=== PATIENT | female | born 1945 | race Caucasian/White ===

== ENCOUNTER → 2022-01-05 | Outpatient (CLI) | payer BC, SELFPAY ==
[2022-01-05 11:44] LABS: Erythrocyte Sedimentation Rate 6 mm/hr (0-30)
[2022-01-05 11:50] LABS: Absolute Lymphocyte Count 1.17 X10^3/uL (0.83-4.51); Absolute Neutrophil Count 4.3 X10^3/uL (2.0-7.7); Basophil# 0.02 X10^3/uL; Basophil% 0.3 % (0-1); Eosinophil# 0.11 X10^3/uL; Eosinophils% 1.8 % (0-5); Hematocrit 38.3 % (37-47); Lymphocyte # 1.17 X10^3/ul (0.83-4.51); Lymphocyte % 19.3 % (19-41); Mean Corp Hgb Conc 33.9 g/dL (32-36); Mean Corpuscular Hgb 33.2 pg (27.0-32.0); Mean Corpuscular Volume 97.7 fL (81-99); Mean Platelet Vol. 8.1 fl (6.2-12.0); Monocyte# 0.41 X10^3/uL; Monocyte% 6.8 % (0-10); NRBC Flagged by Analyzer 0 % (0-5); Neutrophil # 4.25 X10^3/uL (2.7-7.7); Neutrophil % 70.3 % (47-70); Platelet Count 161 K/mm3 (150-450); RBC Distribution Width CV 12.6 % (11.6-14.6); RBC Distribution Width SD 45.1 fl (35.1-43.9); Red Blood Count 3.92 M/mm3 (4.2-5.4); White Blood Count 6.1 K/mm3 (4.4-11.0)
[2022-01-05 12:15] LABS: CRP < 2.90 mg/L (0.0-3.0); Ferritin 44 ng/mL (8-252); LDH 169 U/L (84-246)
[2022-01-06 12:08] LABS: Anti-Centromere B Ab <0.2 AI (0.0-0.9); Anti-Chromatin <0.2 AI (0.0-0.9); Anti-Jo <0.2 AI (0.0-0.9); Anti-Scleroderma-70 AB <0.2 AI (0.0-0.9); RNP Ab <0.2 AI (0.0-0.9); SJOGREN'S Anti-SS-A test < 0.2 AI (0.0-0.9); SJOGREN'S Anti-SS-B test < 0.2 AI (0.0-0.9); Smith Ab <0.2 AI (0.0-0.9)
[2022-01-06 15:50] LABS: Anti-dsDNA Ab <1 IU/mL (0-9)
[2022-01-06 16:08] LABS: Endomysial Antibody IgA Negative (Negative); Immunoglobulin A 56 mg/dL (64-422)
[2022-01-06 18:39] LABS: t-Transglutaminase IgA <2 U/mL (0-3)
[2022-01-09 16:08] LABS: Albumin 3.9 g/dL (2.9-4.4); Alpha-1-Globulins 0.3 g/dL (0.0-0.4); Cytoplasmic Ab (C-ANCA) <1:20 titer (Neg:<1:20); Gamma Globulin 0.7 g/dL (0.4-1.8); Immunoglobulin A 59 mg/dL (64-422); Immunoglobulin G 625 mg/dL (586-1602); Immunoglobulin M 45 mg/dL (26-217); PROEL- TOTAL PROTEIN 6.9 g/dL (6.0-8.5)
[2022-01-09 21:43] LABS: IMMUNOFIXATION RESULT,S Comment: (.); Immunoglobulin E 15 IU/mL (6-495); Perinuclear Ab (P-ANCA) <1:20 titer (Neg:<1:20)
== END | disposition home or self-care (01) ==
LOC: LAB 10:51
PROVIDERS: PCP Family Medicine; Visit Provider Internal Medicine Gastroenterology
DX: K21.9 Gastro-esophageal reflux disease without esophagitis (principal)
CPT/HCPCS: 36415; 82728; 82784; 82785; 83516; 83615; 84165; 85025; 85652; 86140; 86225; 86235; 86255; 86256; 86334

== ENCOUNTER → 2022-01-12 | Outpatient (CLI) | payer MEDICARE, SELFPAY ==
--- NOTE | 2022-01-12 14:55 | CT_ITS ---
STUDY: CT ABDOMEN AND PELVIS WITH CONTRAST REASON FOR EXAM: Female, 76 years old. Abdominal pain/weight loss RADIATION DOSAGE (If Supplied By Facility): CTDIvol = ( 13.26 ) mGy, DLP = ( 307.51 ) mGycm TECHNIQUE: Transaxial images were obtained from the dome of the diaphragm to the symphysis pubis with oral contrast. Oral and amp; IV Readi-CAT and amp; 100mL Isovue-370 was administered. Sagittal and coronal images were reconstructed. Individualized dose optimization techniques were used for this CT. COMPARISON: None. FINDINGS: The visualized lung bases are unremarkable. The visualized portions of the heart are within normal limits. Normal liver. There are surgical clips in the gallbladder fossa consistent with a prior cholecystectomy. Normal spleen. Normal pancreas. Normal bilateral adrenal glands. There is a 1.4 cm cyst in the lower pole of the right kidney. Normal left kidney. There is a small hiatal hernia. Normal small intestine. There are multiple colonic diverticula consistent with diverticulosis. There is non-visualization of the appendix. There is scattered atherosclerotic calcification of the abdominal aorta, without a demonstrated aneurysm. Normal inferior vena cava. Normal retroperitoneum. Normal urinary bladder. There is absence of the uterus consistent with a prior hysterectomy. There is a left-sided inguinal hernia containing adipose tissue. There are diffuse degenerative changes of the visualized lumbar spine. Levoscoliosis. CT/Abdomen/Pelvis WITH Contrast IMPRESSION: Sigmoid diverticulosis. Right renal cyst. Status post cholecystectomy and hysterectomy. Electronically Signed: Todd Keith MD at 15:33 EDT ,
[2022-01-12 15:26] LABS: CREATININE FINGERSTICK 1.1 mg/dL (0.55-1.02)
== END | disposition home or self-care (01) ==
PROVIDERS: PCP Family Medicine; Referring Provider Internal Medicine Gastroenterology; Visit Provider Internal Medicine Gastroenterology
DX: K63.5 Polyp of colon (principal); K21.9 Gastro-esophageal reflux disease without esophagitis
CPT/HCPCS: 74177; Q9967

== ENCOUNTER → 2022-03-14 | Outpatient (CLI) | payer MEDICARE, SELFPAY ==
[2022-03-18 20:25] LABS: Calprotectin, Stool 215 ug/g (0-120)
== END | disposition home or self-care (01) ==
LOC: LABSPEC 11:21
PROVIDERS: PCP Family Medicine; Referring Provider Internal Medicine Gastroenterology; Visit Provider Internal Medicine Gastroenterology
DX: K58.9 Irritable bowel syndrome, unspecified (principal); K21.9 Gastro-esophageal reflux disease without esophagitis
CPT/HCPCS: 83630; 83993

== ENCOUNTER 2022-08-10 10:54 | Day surgery (SDC) | payer MEDICARE, SELFPAY ==
[2022-08-10] VITALS (7 sets, daily range): BP systolic 96–159; BP diastolic 49–102; PULSE 66–94; RESP 16; TEMP 36.4–37.1; O2SAT 97–100; BMI 17.2
--- NOTE | 2022-08-10 | IMM_PTH ---
PATIENT: KAITLYNN TONEY LOC: EN U#:[id number] AGE/SX: 76/F ROOM: RE08/10/[address]: Dr. Kanu Maya DO : 1945 BED: DIS: 08/10/2022 SPEC #: [id number] RECD: 08/12/22 13:17 STATUS: SREE RERach #: [id number] CARMINA: 08/10/22 00:[address]: Kanu Maya DEPT: IMMUNOHISTOCHEMISTRY RECD BY: Tiana Zhong ENTERED: 08/12/22 13:18 SP TYPE: IMMUNO OTHR DR: Dr. Dejuan Selby MD Tissues: A - Esophagus, NOS Procedures: P53 (initial) KI-67 (add) PHYSICIAN & INSTITUTION [place] [id number] SPECIMEN INFORMATION: Tissue Source: A ? Distal esophagus biopsy Clinical Info: GERD, constipation Specimen Number: [id number] CPT code: 98348, 13433 METHODOLOGY: Deparaffinized sections of prefer/formalin-fixed tissue or PAP/DQ stained slides are incubated with monoclonal/polyclonal antibodies/oligonucleotide probes. Localization is made via biotin free immunoperoxidase method. Appropriate controls are performed and reacted as expected. Results on target cell population are indicated in the following table: RESULTS: ANTIBODY / CLONE RESULT Block A P53 (DO-7) negative Ki-67 (30-9) positive, very low These tests were developed and their performance characteristics determined by [facility]. They may not have been cleared or approved by the U.S. Food and Drug Administration. The FDA has determined that such clearance or approval is not necessary. The above immunohistochemical/dualISH markers are ordered and reviewed by the Pathologist. INTERPRETATION: A. Distal esophagus, biopsy: Negative for dysplasia. HÉCTOR:leland 08/15/2022
[2022-08-10] MEDS: Lactated Ringers 1,000 ML 15 ML IV (11:20)
--- NOTE | 2022-08-10 11:58 | HP.PCM_ITS ---
History and Physical Date of Admission: 08/10/22 76 F who presents to the office today accompanied by daughter in law for acid reflux, constipation, hx colon polyps. A few yrs ago she had lost 40 lbs unintentionally because she couldn't eat; was getting vomiting and sometimes diarrhea. Had esophageal ulcer, had diverticulitis. Recalls being told there were ulcers in the colon too. Treated with sucralfate successfully then. Also hx colon polyps so she had frequent colonoscopies. Mother of colon cancer age 80. Takes omeprazole 40 mg daily. Sometimes wakes in night with heartburn--about 2x per wk, then relieved with TUMS. 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 and underwent surgical correction. ?She has a small hiatal hernia on CT done in 12/2021. Tends to be constipated. Tries to get good fiber intake. Typically has a daily BM, may have to strain. Takes a daily docusate. Takes prn natural laxative, l ess often than weekly. 12/2021 shows diverticula in sigmoid colon. 12/2021 labs: Elevated stool calprotectin, normal stool lactoferrin. Slightly low IgA. Normal JF. Normal MAGNUS-comprehensive. Normal ferritin, LDH, crp, esr. CBC unremarkable.? EGD performed at [facility] 12.30.20 finding esophagitis; 3mm sessile esophageal polyp; esophageal ulcer at GE junction with adherent fibrinous exudate; hiatal h ernia with erythema; gastritis. Biopsies without pathologic diagnosis. She recalls having colonoscopy then too--we will get op report and path report. 01/12/22 CT/Abdomen/Pelvis WITH Contrast IMPRESSION: Sigmoid diverticulosis. Right renal cyst. Status post cholecystectomy and hysterectomy. Small hiatal hernia ROS Const Constitutional: Positive for fatigue and weight change ENT ENT: No difficulty swallowing Gastro GI: Positive for bloating, constipation, heartburn, excessive flatus and nausea/dyspepsia; No abdominal pain, belching, change in bowel habits, change in stool character, coffee ground emesis, cramping, diarrhea, difficulty swallowing, feeling full early, incontinent of stools, Vomiting blood/hematemesis, Blood in stool, loose stools, Black,tarry stools, pain with swallowing, vomiting or other Musc Musculoskeletal: Positive for abnormal gait, joint pain, back pain, muscle cramps, muscle weakness, stiffness and sciatica Skin Skin: No yellowing of the eye or itchy eyes Neuro Neurology: Positive for abnormal gait Psych Psychiatric: Positive for anxiety and Positive for depression Endo Endocrine: Positive for fatigue and weight change Aller/Imm Allergy/Immunologic: No itchy eyes Sotero/Lymp Hematologic/Lymphatic: Positive for easy bruising; No easy bleeding Exam Const General: cooperative, healthy appearing and comfortable Nutritional Appearance: thin Orientation: alert, awake and oriented x3 HENMT Head: normal to inspection Eyes Sclera: sclerae normal Resp Effort & Inspection: normal respiratory effort GI Inspection: normal to inspection Palpation: soft, no hepatosplenomegaly, no masses and nontender Quality Reporting Tobacco Screening ([facility]) Smoking Status: Never smoker Assessment and Plan Assessment and Plan (1) GERD (gastroesophageal reflux disease): ?Status:?Chronic ?Plan: 76 yr old female with heartburn intermittently while taking omeprazole 40 mg daily, small hiatal hernia per CT w/ hx of surgery for entire stomach in chest, hx esophageal ulcer, gastric polyp. Also has chronic constipation, hx colon polyps, FH colon cancer. We will schedule her for EGD and colonoscopy w/ office f/u 2 wks later to review biopsy results. We discussed her labs and CT results today. Try Fiber Choice tablets for constipation; she or her DIL will let me know if not effective so we can try something else. We will get last colonoscopy op report and path report.? (2) Constipation: ?Status:?Acute ?Plan: as above I have examined the patient and the H&P has been reviewed. There are no clinical changes since date of exam.
--- NOTE | 2022-08-10 12:00 | EGD_PTH ---
PATIENT: KAITLYNN TONEY LOC: EN U#:[id number] AGE/SX: 76/F ROOM: RE08/10/[address]: Dr. Kanu Maya DO : 1945 BED: DIS: 08/10/2022 SPEC #: [id number] RECD: 08/10/22 15:27 STATUS: SREE SAIRA #: [id number] CARMINA: 08/10/22 12:[address]: Kanu Maya DEPT: SURGICAL PATHOLOGY RECD BY: Courtney Fraire ENTERED: 08/11/22 08:40 SP TYPE: EGD BIOPSY OT DR: Dr. Dejuan Selby MD Tissues: A - Esophagus, NOS B - Cecum, NOS Procedures: Special Stain Group II Surgery Specimen Level IV Alcian Blue/PAS (control) HEADER OPERATION: Colonoscopy, EGD (MAC), biopsy, polypectomy PRE-OP DIAGNOSIS: GERD, constipation TISSUE SUBMITTED: A ? Distal esophagus biopsy, B ? Cecum polyp MICROSCOPIC DIAGNOSIS A. Distal esophagus, biopsy: Fragments of gastroesophageal mucosa with extensive intestinal metaplasia (goblet cell metaplasia), consistent with Lechuga's esophagus. Moderate chronic inflammation. Negative for dysplasia. See comment. B. Cecum polyp, polypectomy: Fragments of hyperplastic polyp. Fragments of fecal material. SJ:rg 08/12/2022 COMMENT A. Immunohistochemistry ([id number]) for P53 and Ki-67 will be performed and results will be reported separately. Alcian blue/PAS stain with matched control is used in the evaluation of the specimen. MICROSCOPIC DESCRIPTION Slides are reviewed. GROSS DESCRIPTION A - Received in fixative is one container labeled with the patient's name and designated distal esophagus biopsy. The specimen consists of multiple irregular fragments of light barnhart soft tissue that in aggregate measure 0.6 x 0.6 x 0.1 cm. The specimen is totally submitted in one cassette. B - Received in fixative is one container labeled with the patient's name and designated cecum polyp. The specimen consists of a pink polyp measuring 0.7 x 0.5 x 0.3 cm. Multiple irregular fragments of barnhart soft tissue mixed with fecal material are also present measuring 2.5 x 1.0 x 0.1 cm. The entire specimen is submitted in one cassette. / HÉCTOR:leland 08/11/2022 TC:5 CPT: 69451 x2, 99611
--- NOTE | 2022-08-10 12:37 | OP.EGD_ITS ---
Patient Name: Merline Diaz Procedure Date: 08/10/2022 11:50 AM Date of : 1945 Age: 76 Procedure: Upper GI endoscopy Indications: Heartburn Providers: Kanu Maya DO Medicines: Monitored Anesthesia Care Patient Profile: This is a 76 year old female. Refer to note in patient chart for documentation of history and physical. Patient has symptoms of chronic heartburn. Patient has symptoms of chronic heartburn. Complications: No immediate complications. Procedure: Pre-Anesthesia Assessment: - Prior to the procedure, a History and Physical was performed, and patient medications and allergies were reviewed. The risks and benefits of the procedure and the sedation options and risks were discussed with the patient. All questions were answered and informed consent was obtained. Patient identification and proposed procedure were verified by the physician in the pre-procedure area. Mental Status Examination: alert and oriented. Airway Examination: normal oropharyngeal airway and neck mobility. Respiratory Examination: clear to auscultation. CV Examination: normal. Prophylactic Antibiotics: The patient does not require prophylactic antibiotics. Prior Anticoagulants: The patient has taken no previous anticoagulant or antiplatelet agents. ASA Grade Assessment: II - A patient with mild systemic disease. After reviewing the risks and benefits, the patient was deemed in satisfactory condition to undergo the procedure. The anesthesia plan was to use monitored anesthesia care (MAC). Immediately prior to administration of medications, the patient was re-assessed for adequacy to receive sedatives. The heart rate, respiratory rate, oxygen saturations, blood pressure, adequacy of pulmonary ventilation, and response to care were monitored throughout the procedure. The physical status of the patient was re-assessed after the procedure. After obtaining informed consent, the endoscope was passed under direct vision. Throughout the procedure, the patient's blood pressure, pulse, and oxygen saturations were monitored continuously. The pediatric colonoscope was introduced through the mouth, and advanced to the second part of duodenum. The upper GI endoscopy was accomplished without difficulty. The patient tolerated the procedure well. Scope In: 12:02:17 PM Scope Out: 12:06:01 PM Total Procedure Duration Time 0 hours 3 minutes 44 seconds Findings: LA Grade B (one or more mucosal breaks greater than 5 mm, not extending between the tops of two mucosal folds) esophagitis was found 35 to 38 cm from the incisors. Biopsies were taken with a cold forceps for histology. Verification of patient identification for the specimen was done. Estimated blood loss was minimal. A small hiatal hernia was present. No other significant abnormalities were identified in a careful examination of the stomach. The first portion of the duodenum was normal. Impression: - LA Grade B erosive esophagitis. Biopsied. - Small hiatal hernia. - Normal first portion of the duodenum. Recommendation: - Discharge patient to home. - Resume previous diet. - Continue present medications. - Await pathology results. - Repeat upper endoscopy in 4 months to check healing. Procedure Code(s): --- Professional --- 47706, Esophagogastroduodenoscopy, flexible, transoral; with biopsy, single or multiple CPT copyright 2017 [employer]. All rights reserved. The codes documented in this report are preliminary and upon patrol conductor review may be revised to meet current compliance requirements. Kanu Maya DO 08/10/2022 12:36:33 PM This report has been signed electronically. Number of Addenda: 0 Note Initiated On: 08/10/2022 11:50 AM
--- NOTE | 2022-08-10 12:38 | OP.CCLET_ITS ---
08/10/2022 Dejuan Selby [address] [place] [address] [place] [address] Re : Upper GI endoscopy procedure for Merline Natarajancristal Dear Dr. Selby This procedure was performed on Wednesday, August 10, 2022. My impressions and recommendations are as follows: Impressions : - LA Grade B erosive esophagitis. Biopsied. - Small hiatal hernia. - Normal first portion of the duodenum. Recommendations : - Discharge patient to home. - Resume previous diet. - Continue present medications. - Await pathology results. - Repeat upper endoscopy in 4 months to check healing. My findings are described in the full procedure note, which is enclosed. If I can be of further assistance, please feel free to contact me at . Sincerely, Kanu Maya, 08/10/2022 12:36:33 PM This report has been signed electronically.
--- NOTE | 2022-08-10 12:44 | OP.COLON_ITS ---
Patient Name: Merline Diaz Procedure Date: 08/10/2022 12:06 PM Date of : 1945 Age: 76 Procedure: Colonoscopy Indications: Screening for colorectal malignant neoplasm Providers: Kanu Maya DO Medicines: Monitored Anesthesia Care Patient Profile: This is a 76 year old female. Refer to note in patient chart for documentation of history and physical. Patient has symptoms of chronic heartburn. Patient has symptoms of chronic heartburn. Refer to note in patient chart for documentation of history and physical. Last Colonoscopy: 5 years ago. Complications: No immediate complications. Procedure: Pre-Anesthesia Assessment: - Prior to the procedure, a History and Physical was performed, and patient medications and allergies were reviewed. The risks and benefits of the procedure and the sedation options and risks were discussed with the patient. All questions were answered and informed consent was obtained. Patient identification and proposed procedure were verified by the physician in the pre-procedure area. Mental Status Examination: alert and oriented. Airway Examination: normal oropharyngeal airway and neck mobility. Respiratory Examination: clear to auscultation. CV Examination: normal. Prophylactic Antibiotics: The patient does not require prophylactic antibiotics. Prior Anticoagulants: The patient has taken no previous anticoagulant or antiplatelet agents. ASA Grade Assessment: II - A patient with mild systemic disease. After reviewing the risks and benefits, the patient was deemed in satisfactory condition to undergo the procedure. The anesthesia plan was to use monitored anesthesia care (MAC). Immediately prior to administration of medications, the patient was re-assessed for adequacy to receive sedatives. The heart rate, respiratory rate, oxygen saturations, blood pressure, adequacy of pulmonary ventilation, and response to care were monitored throughout the procedure. The physical status of the patient was re-assessed after the procedure. After I obtained informed consent, the scope was passed under direct vision. Throughout the procedure, the patient's blood pressure, pulse, and oxygen saturations were monitored continuously. The pediatric colonoscope was introduced through the anus and advanced to the cecum, identified by appendiceal orifice and ileocecal valve. The colonoscopy was performed without difficulty. The patient tolerated the procedure well. The quality of the bowel preparation was adequate. Scope In: 12:09:19 PM Scope Withdrawal Time 0 hours 12 minutes 21 seconds Scope Out: 12:29:32 PM Total Procedure Duration Time 0 hours 20 minutes 13 seconds Findings: The perianal and digital rectal examinations were normal. Multiple small and large-mouthed diverticula were found in the recto-sigmoid colon, sigmoid colon and descending colon. A 9 mm polyp was found in the cecum. The polyp was sessile. The polyp was removed with a hot snare. Resection and retrieval were complete. Verification of patient identification for the specimen was done. Estimated blood loss was minimal. Impression: - Diverticulosis in the recto-sigmoid colon, in the sigmoid colon and in the descending colon. - One 9 mm polyp in the cecum, removed with a hot snare. Resected and retrieved. Recommendation: - Repeat colonoscopy in 3 years for surveillance. - Continue present medications. - No aspirin, ibuprofen, naproxen, or other non-steroidal anti-inflammatory drugs for 7 days after polyp removal. Procedure Code(s): --- Professional --- 30754, Colonoscopy, flexible; with removal of tumor(s), polyp(s), or other lesion(s) by snare technique CPT copyright 2017 [employer] [place] [employer] [employer]. All rights reserved. The codes documented in this report are preliminary and upon secondary school principal review may be revised to meet current compliance requirements. Kanu Myaa DO 08/10/2022 12:43:56 PM This report has been signed electronically. Number of Addenda: 0 Note Initiated On: 08/10/2022 12:06 PM
--- NOTE | 2022-08-10 12:44 | OP.CCLET_ITS ---
08/10/2022 Dejuan Selby [address] [place] [address] [place] [address] Re : Colonoscopy procedure for Merline Diaz Dear Dr. Selby This procedure was performed on Wednesday, August 10, 2022. My impressions and recommendations are as follows: Impressions : - Diverticulosis in the recto-sigmoid colon, in the sigmoid colon and in the descending colon. - One 9 mm polyp in the cecum, removed with a hot snare. Resected and retrieved. Recommendations : - Repeat colonoscopy in 3 years for surveillance. - Continue present medications. - No aspirin, ibuprofen, naproxen, or other non-steroidal anti-inflammatory drugs for 7 days after polyp removal. My findings are described in the full procedure note, which is enclosed. If I can be of further assistance, please feel free to contact me at . Sincerely, Kanu Maya, 08/10/2022 12:43:56 PM This report has been signed electronically.
== END 2022-08-10 13:25 | disposition home or self-care (01) ==
LOC: EN 10:55 → AC 10:59
PROVIDERS: PCP Family Medicine; Referring Provider Family Medicine; Visit Provider Internal Medicine Gastroenterology
PROC: 0DJD8ZZ Inspection of Lower Intestinal Tract, Via Natural or Artificial Opening Endoscopic (ICD-10-PCS; CPT 45378; principal; 2022-08-10 11:55)
DX: Z12.11 Encounter for screening for malignant neoplasm of colon (principal); K44.9 Diaphragmatic hernia without obstruction or gangrene; K57.30 Diverticulosis of large intestine without perforation or abscess without bleeding; Z80.0 Family history of malignant neoplasm of digestive organs; Z86.010 Personal history of colon polyps; K20.80 Other esophagitis without bleeding; K63.5 Polyp of colon; K21.9 Gastro-esophageal reflux disease without esophagitis
CPT/HCPCS: 45385; 43239; 88305; 88313; 88341; 88342; J7120

== ENCOUNTER 2022-12-08 09:32 | Day surgery (SDC) | payer MEDICARE, SELFPAY ==
--- NOTE | 2022-12-07 | IMM_PTH ---
PATIENT: KAITLYNN TONEY LOC: EN U#:[id number] AGE/SX: 76/F ROOM: RE12/08/[address]: Dr. Kanu Maya DO : 1945 BED: DIS: 12/08/2022 SPEC #: [id number] RECD: 12/09/22 12:47 STATUS: SREE REQ #: [id number] CARMINA: 12/07/22 00:[address]: Kanu Maya DEPT: IMMUNOHISTOCHEMISTRY RECD BY: Tiana Zhong ENTERED: 12/09/22 12:48 SP TYPE: IMMUNO OTHR DR: Dr. Dejuan Selby MD Tissues: Esophagus, NOS Procedures: P53 (initial) KI-67 (add) PHYSICIAN & INSTITUTION [place] [id number] SPECIMEN INFORMATION: Tissue Source: Distal esophagus Clinical Info: GERD, Lechuga?s esophagus Specimen Number: [id number] CPT code: 14326, 69107 METHODOLOGY: Deparaffinized sections of prefer/formalin-fixed tissue or PAP/DQ stained slides are incubated with monoclonal/polyclonal antibodies/oligonucleotide probes. Localization is made via biotin free immunoperoxidase method. Appropriate controls are performed and reacted as expected. Results on target cell population are indicated in the following table: RESULTS: ANTIBODY / CLONE RESULT P53 (DO-7) negative, wild type pattern Ki-67 (30-9) positive, low These tests were developed and their performance characteristics determined by [facility]. They may not have been cleared or approved by the U.S. Food and Drug Administration. The FDA has determined that such clearance or approval is not necessary. The above immunohistochemical/dualISH markers are ordered and reviewed by the Pathologist. INTERPRETATION: Distal esophagus, biopsy: No evidence of dysplasia. AM:leland 12/12/2022
[2022-12-08] VITALS (7 sets, daily range): BP systolic 136–175; BP diastolic 65–94; PULSE 78–112; RESP 16; TEMP 36.4–36.9; O2SAT 98–100; BMI 22.8
[2022-12-08] MEDS: Lactated Ringers 1,000 ML 15 ML IV (09:57)
--- NOTE | 2022-12-08 10:30 | EGD_PTH ---
PATIENT: KAITLYNN TONEY LOC: EN U#:[id number] AGE/SX: 76/F ROOM: RE12/08/[address]: Dr. Kanu Maya DO : 1945 BED: DIS: 12/08/2022 SPEC #: [id number] RECD: 12/08/22 13:20 STATUS: SREE RERach #: [id number] CARMINA: 12/08/22 10:[address]: Kanu Maya DEPT: SURGICAL PATHOLOGY RECD BY: Brando Dugan ENTERED: 12/08/22 13:52 SP TYPE: EGD BIOPSY OT DR: Dr. Dejaun Selby MD Tissues: Esophagus, NOS Procedures: Surgery Specimen Level IV HEADER OPERATION: EGD ([facility]) with biopsies PRE-OP DIAGNOSIS: GERD, Lechuga?s esophagus TISSUE SUBMITTED: Distal esophagus biopsies MICROSCOPIC DIAGNOSIS Distal esophagus, biopsy: Fragments of gastroesophageal mucosa with intestinal metaplasia (goblet cell metaplasia), consistent with Lechuga's esophagus. Chronic inflammation. Negative for dysplasia. See comment. HÉCTOR:leland 12/09/2022 COMMENT Alcian blue/PAS stain with matched control is used in the evaluation of the specimen. Immunohistochemistry ([id number]) for P53 and Ki-67 will be performed and results will be reported separately. MICROSCOPIC DESCRIPTION Slides are reviewed. GROSS DESCRIPTION Received in fixative is one container labeled with the patient's name and designated distal esophagus biopsy. The specimen consists of multiple irregular fragments of light barnhart soft tissue that in aggregate measure 1.5 x 0.5 x 0.1 cm. The specimen is totally submitted in one cassette. / HÉCTOR:leland 12/08/2022 TC:5 CPT: 39582, 30068
--- NOTE | 2022-12-08 10:32 | HP.PCM_ITS ---
History and Physical Date of Admission: 12/08/22 ?76 F who presents to the office today for discussion of EGD and colonoscopy findings. Endoscopies were indicated for heartburn despite taking omeprazole, small hiatal hernia per CT w/ hx of surgery for entire stomach in chest, hx esophageal ulcer, hx colon polyps, FH colon cancer (mother). EGD showed esophagitis, positive for Lechuga's esophagus, negative for dysplasia. Dr Maya recommends repeat EGD at 4 mos to ensure healing in esophagus. 9 mm hyperplastic polyp in cecum. Today she reports less frequent acid reflux although she occas wakes in night with heartburn. Having daily BM, she had been taking miralax routinely. 08/10/22 EGD and Colonoscopy Impression: ? - LA Grade B erosive esophagitis. Biopsied. ? - Small hiatal hernia. ? - Normal first portion of the duodenum. Impression: ? - Diverticulosis in the recto-sigmoid colon, in ? the sigmoid colon and in the descending colon. ? - One 9 mm polyp in the cecum, removed with a ? hot snare. Resected and retrieved. MICROSCOPIC DIAGNOSIS A.? Distal esophagus, biopsy: Fragments of gastroesophageal mucosa with extensive intestinal metaplasia (goblet cell metaplasia), consistent with Lechuga's esophagus. ?Moderate chronic inflammation. ?Negative for dysplasia. ?See comment. B.? Cecum polyp, polypectomy: ?Fragments of hyperplastic polyp. ?Fragments of fecal material. ROS Const Constitutional: Positive for fatigue and headache(s) ENT ENT: Positive for headache(s); No difficulty swallowing Gastro GI: Positive for bloating, constipation, heartburn and excessive flatus; No abdominal pain, belching, change in bowel habits, change in stool character, coffee ground emesis, cramping, diarrhea, difficulty swallowing, feeling full early, incontinent of stools, Vomiting blood/hematemesis, Blood in stool, loose stools, Black,tarry stools, nausea/dyspepsia, pain with swallowing, vomiting or other Musc Musculoskeletal: Positive for joint pain, back pain, joint swelling, muscle cramps, muscle weakness, stiffness and Arthritis Skin Skin: No yellowing of the eye or itchy eyes Neuro Neurology: Positive for headache(s) Psych Psychiatric: Positive for anxiety and Positive for depression Endo Endocrine: Positive for fatigue Aller/Imm Allergy/Immunologic: No itchy eyes Sotero/Lymp Hematologic/Lymphatic: No easy bleeding or easy bruising Exam Const General: cooperative, healthy appearing and comfortable Orientation: alert, awake and oriented x3 Quality Reporting Tobacco Screening ([facility] 138) Smoking Status: Never smoker Assessment and Plan Assessment and Plan (1) GERD (gastroesophageal reflux disease): ?Status:?Chronic ?Plan: 76 yr old female accompanied by her daughter, we reviewed EGD and colonoscopy findings. New diagnosis of Lechuga's esophagus. Will have her increase omeprazole 40 mg to BID x 2mos, then decrease back to QAM. Repeat EGD at [address] Maya's recommendation to ensure esophageal healing. (2) Lechuga's esophagus: ?Status:?Acute ?Plan: see above ? ? ? Medications: Changed From omeprazole 40 mg? PO DAILY ? ? To omeprazole 40 mg? PO BID 180 caps 0RF ? ? I have examined the patient and the H&P has been reviewed. There are no clinical changes since date of exam.
--- NOTE | 2022-12-08 10:57 | OP.EGD_ITS ---
Patient Name: Merline Diaz Procedure Date: 12/08/2022 10:31 AM Date of : 1945 Age: 76 Procedure: Upper GI endoscopy Indications: Esophageal reflux, Follow-up of Lechuga's esophagus Providers: Kanu Maya DO Medicines: Monitored Anesthesia Care Patient Profile: This is a 76 year old female. Refer to note in patient chart for documentation of history and physical. Patient has symptoms of chronic heartburn. Complications: No immediate complications. Procedure: Pre-Anesthesia Assessment: - Prior to the procedure, a History and Physical was performed, and patient medications and allergies were reviewed. The risks and benefits of the procedure and the sedation options and risks were discussed with the patient. All questions were answered and informed consent was obtained. Patient identification and proposed procedure were verified by the physician in the pre-procedure area. Mental Status Examination: alert and oriented. Airway Examination: normal oropharyngeal airway and neck mobility. Respiratory Examination: clear to auscultation. CV Examination: normal. Prophylactic Antibiotics: The patient does not require prophylactic antibiotics. Prior Anticoagulants: The patient has taken no previous anticoagulant or antiplatelet agents. ASA Grade Assessment: III - A patient with severe systemic disease. After reviewing the risks and benefits, the patient was deemed in satisfactory condition to undergo the procedure. The anesthesia plan was to use monitored anesthesia care (MAC). Immediately prior to administration of medications, the patient was re-assessed for adequacy to receive sedatives. The heart rate, respiratory rate, oxygen saturations, blood pressure, adequacy of pulmonary ventilation, and response to care were monitored throughout the procedure. The physical status of the patient was re-assessed after the procedure. After obtaining informed consent, the endoscope was passed under direct vision. Throughout the procedure, the patient's blood pressure, pulse, and oxygen saturations were monitored continuously. The gastroscope was introduced through the mouth, and advanced to the second part of duodenum. The upper GI endoscopy was accomplished without difficulty. The patient tolerated the procedure well. Scope In: 10:40:00 AM Scope Out: 10:44:33 AM Total Procedure Duration Time 0 hours 4 minutes 33 seconds Findings: LA Grade A (one or more mucosal breaks less than 5 mm, not extending between tops of 2 mucosal folds) esophagitis with no bleeding was found 35 to 37 cm from the incisors. Biopsies were taken with a cold forceps for histology. Verification of patient identification for the specimen was done. Estimated blood loss was minimal. There were esophageal mucosal changes secondary to established short-segment Lechuga's disease present in the lower third of the esophagus. The maximum longitudinal extent of these mucosal changes was 3 cm in length. Mucosa was biopsied with a cold forceps for histology in a targeted manner at intervals of 1 cm in the lower third of the esophagus. One specimen bottle was sent to pathology. Verification of patient identification for the specimen was done. Estimated blood loss was minimal. A medium-sized hiatal hernia was present. The exam of the stomach was otherwise normal. No gross lesions were noted in the duodenal bulb. Impression: - LA Grade A reflux esophagitis. Biopsied. - Esophageal mucosal changes secondary to established short-segment Lechuga's disease. Biopsied. - Medium-sized hiatal hernia. - No gross lesions in the duodenal bulb. Recommendation: - Discharge patient to home. - Resume previous diet. - Continue present medications. Procedure Code(s): --- Professional --- 80492, Esophagogastroduodenoscopy, flexible, transoral; with biopsy, single or multiple CPT copyright 2017 [employer]. All rights reserved. The codes documented in this report are preliminary and upon social work therapist review may be revised to meet current compliance requirements. Kanu Maya DO 12/08/2022 10:57:38 AM This report has been signed electronically. Number of Addenda: 0 Note Initiated On: 12/08/2022 10:31 AM
--- NOTE | 2022-12-08 10:58 | OP.CCLET_ITS ---
12/08/2022 Dejuan Selby [address] [place] [address] [place] [address] Re : Upper GI endoscopy procedure for Merline Natarajancristal Dear Dr. Selby This procedure was performed on November. My impressions and recommendations are as follows: Impressions : - LA Grade A reflux esophagitis. Biopsied. - Esophageal mucosal changes secondary to established short-segment Lechuga's disease. Biopsied. - Medium-sized hiatal hernia. - No gross lesions in the duodenal bulb. Recommendations : - Discharge patient to home. - Resume previous diet. - Continue present medications. My findings are described in the full procedure note, which is enclosed. If I can be of further assistance, please feel free to contact me at . Sincerely, Kanu Maya, 12/08/2022 10:57:38 AM This report has been signed electronically.
== END 2022-12-08 11:39 | disposition home or self-care (01) ==
LOC: EN 09:33 → AC 09:35
PROVIDERS: PCP Family Medicine; Referring Provider Family Medicine; Visit Provider Internal Medicine Gastroenterology
PROC: 0DJ08ZZ Inspection of Upper Intestinal Tract, Via Natural or Artificial Opening Endoscopic (ICD-10-PCS; CPT 43235; principal; 2022-12-08 10:25)
DX: K22.70 Barrett's esophagus without dysplasia (principal); K44.9 Diaphragmatic hernia without obstruction or gangrene; K21.00 Gastro-esophageal reflux disease with esophagitis, without bleeding; Z86.010 Personal history of colon polyps; Z80.0 Family history of malignant neoplasm of digestive organs; R53.83 Other fatigue; R51.9 Headache, unspecified
CPT/HCPCS: 43239; 88305; 88341; 88342; J7120; J2405

== ENCOUNTER 2023-10-12 09:52 | Day surgery (SDC) | payer MEDICARE, SELFPAY ==
--- NOTE | 2023-10-12 | ESO_PTH ---
PATIENT: KAITLYNN TONEY LOC: EN U#:[id number] AGE/SX: 77/F ROOM: RE10/12/[address]: Dr. Kanu Maya DO : 1945 BED: DIS: 10/12/2023 SPEC #: [id number] RECD: 10/12/23 12:50 STATUS: SREE SAIRA #: [id number] CARMINA: 10/12/23 00:[address]: Kanu Maya DEPT: SURGICAL PATHOLOGY RECD BY: Richi Guillermo ENTERED: 10/12/23 12:50 SP TYPE: ANN-MARIE ARELLANO DR: Dr. Dejuan Selby MD Tissues: Esophagus, NOS Procedures: Special Stain Group II Surgery Specimen Level IV Alcian Blue/PAS (control) HEADER OPERATION: EGD with biopsy PRE-OP DIAGNOSIS: GERD, Lechuga's esophagus TISSUE SUBMITTED: Distal esophagus biopsy MICROSCOPIC DIAGNOSIS Distal esophagus, biopsy: Fragments of gastroesophageal mucosa with extensive intestinal metaplasia (goblet cell metaplasia), consistent with Lechuga's esophagus. Extensive ulceration, acute and chronic inflammation and fibrinopurulent exudation. Negative for dysplasia. See comment. / 10/13/2023 COMMENT Alcian blue/PAS stain with matched control is used in the evaluation of the specimen. Immunohistochemistry ([id number]) for P53 and Ki-67 will be performed and results will be reported separately. Case has been reviewed in consultation with Dr. Bledsoe who concurs with the above diagnosis. IDC:AM MICROSCOPIC DESCRIPTION Slides are reviewed. GROSS DESCRIPTION Received in fixative is one container labeled with the patient's name and designated Distal esophagus biopsy. The specimen consists of multiple irregular fragments of light barnhart soft tissue that in aggregate measure 1.5 x 0.4 x 0.1 cm. The specimen is totally submitted in one cassette. [facility] 10/12/2023 TC:2 CPT:69430
--- NOTE | 2023-10-12 | IMM_PTH ---
PATIENT: KAITLYNN TONEY LOC: EN U#:[id number] AGE/SX: 77/F ROOM: RE10/12/[address]: Dr. Kanu Maya DO : 1945 BED: DIS: 10/12/2023 SPEC #: [id number] RECD: 10/13/23 11:36 STATUS: SREE REQ #: [id number] CARMINA: 10/12/23 00:[address]: Kanu Maya DEPT: IMMUNOHISTOCHEMISTRY RECD BY: Akira Hernandez ENTERED: 10/13/23 11:36 SP TYPE: IMMUNO OTHR DR: Dr. Dejuan Selby MD Tissues: Esophagus, NOS Procedures: P53 (initial) KI-67 (add) PHYSICIAN & INSTITUTION [place] [id number] SPECIMEN INFORMATION: Tissue Source: Distal esophagus Clinical Info: GERD, Lechuga's esophagus Specimen Number: [id number] CPT code: 12522,08622 METHODOLOGY: Deparaffinized sections of prefer/formalin-fixed tissue or PAP/DQ stained slides are incubated with monoclonal/polyclonal antibodies/oligonucleotide probes. Localization is made via biotin free immunoperoxidase method. Appropriate controls are performed and reacted as expected. Results on target cell population are indicated in the following table: RESULTS: ANTIBODY / CLONE RESULT P53 (DO-7) positive, rare cells (wild type pattern) Ki-67 (30-9) positive, low These tests were developed and their performance characteristics determined by [facility]. They may not have been cleared or approved by the U.S. Food and Drug Administration. The FDA has determined that such clearance or approval is not necessary. The above immunohistochemical/dualISH markers are ordered and reviewed by the Pathologist. INTERPRETATION: Distal esophagus, biopsy: Negative for dysplasia. HÉCTOR/ 10/16/23
[2023-10-12 10:27] VITALS: BP 141/71; PULSE 98; RESP 16; TEMP 36.7; O2SAT 100; BMI 23.6
[2023-10-12] MEDS: Lactated Ringers 1,000 ML 15 ML IV (10:30)
--- NOTE | 2023-10-12 11:12 | HP.PCM_ITS ---
History and Physical Date of Admission: 10/12/23 KAITLYNN DIAZ, is a 77 F who presents to the office today for Kaitlynn Diaz [birth year]? Prior workup? EGD 12.30.20 JPH?esophagitis; 3mm sessile esophageal polyp; esophageal ulcer at GE junction with adherent fibrinous exudate; hiatal hernia with erythema; gastritis. Biopsies without pathologic diagnosis. She recalls having colonoscopy then too--we will get op report and path report.? *BGI established 01.05.22 with reflux and constipation difficulty. OTC laxatives are effective but cause an upset stomach. BM occur daily with varying feeling of complete evacuation.?Biochemical?CBC, ESR, globulin, CRP, LDH, MAGNUS comp, ANCA, celiac (IgA L56), JF without pertinent abnormality.?Stool lactoferrin WNL. Calprotectin H215? CT abd/pel 01.12.22?s/p cholecystectomy; small hiatal hernia; diverticulosis; left inguinal hernia.? OV 06.10.22 with history of unintentional weight loss with N/V/D; workup found esophageal ulcer and diverticulitis. Also has difficulty with heartburn for which she takes omeprazole 40mg QD and constipation for which she treats with fiber and PRN laxative.? EGD and colonoscopy 08.10.22?EGD LA Grade B esophagitis, Lechuga?s; small hiatal hernia? Colonoscopy diverticulosis; 9mm cecal hyperplastic polyp.? OV 10.04.22 increase omeprazole 40mg to BID. New diagnosis of Lechuga?s.?EGD 12.08.22?LA Grade A esophagitis; Short-segment Lechuga?s lower third of esophagus; medium hiatal hernia.? OV 01.04.23 patient reports that she is doing better in regards to acid reflux, still taking the omeprazole daily and only reports some indigestion, not as bad as it was before. reports hiatial hernia was sort of fixed by the [facility]. reports constipation but is trying to manage it with Miralax and a v eggie pill supplement. Exam Const General: cooperative, healthy appearing and comfortable Orientation: alert, awake and oriented x3 Quality Reporting Tobacco Screening ([facility] 138) Smoking Status: Never smoker Assessment and Plan Assessment and Plan (1) GERD (gastroesophageal reflux disease): Status: Chronic Plan: 76 yr old female accompanied by her daughter, we reviewed EGD and colonoscopy findings. New diagnosis of Lechuga's esophagus. Will have her increase omeprazole 40 mg to BID x 2mos, then decrease back to QAM. Repeat EGD at 1 year. (2) Lechuga's esophagus: Status: Acute Plan: I have examined the patient and the H&P has been reviewed. There are no clinical changes since date of exam.
[2023-10-12 11:31] VITALS: BP 141/71; BP 84/55; PULSE 90; RESP 14; TEMP 36.4; O2SAT 100
--- NOTE | 2023-10-12 11:31 | OP.EGD_ITS ---
Patient Name: Merline Diaz Procedure Date: 10/12/2023 11:17 AM Date of : 1945 Age: 77 Procedure: Upper GI endoscopy Indications: Heartburn Providers: Kanu Maya DO Referring MD: Kanu Maya DO Medicines: Monitored Anesthesia Care Patient Profile: This is a 77 year old female. Refer to note in patient chart for documentation of history and physical. Patient has symptoms of chronic heartburn, chronic nausea and chronic vomiting. Complications: No immediate complications. Procedure: Pre-Anesthesia Assessment: - Prior to the procedure, a History and Physical was performed, and patient medications and allergies were reviewed. The risks and benefits of the procedure and the sedation options and risks were discussed with the patient. All questions were answered and informed consent was obtained. Patient identification and proposed procedure were verified by the physician. Mental Status Examination: normal. Prophylactic Antibiotics: The patient does not require prophylactic antibiotics. Prior Anticoagulants: The patient has taken no anticoagulant or antiplatelet agents. After reviewing the risks and benefits, the patient was deemed in satisfactory condition to undergo the procedure. The anesthesia plan was to use monitored anesthesia care (MAC). Immediately prior to administration of medications, the patient was re-assessed for adequacy to receive sedatives. The heart rate, respiratory rate, oxygen saturations, blood pressure, adequacy of pulmonary ventilation, and response to care were monitored throughout the procedure. The physical status of the patient was re-assessed after the procedure. After obtaining informed consent, the endoscope was passed under direct vision. Throughout the procedure, the patient's blood pressure, pulse, and oxygen saturations were monitored continuously. The Endoscope was introduced through the mouth, and advanced to the second part of duodenum. The upper GI endoscopy was accomplished without difficulty. The patient tolerated the procedure well. Scope In: 11:21:18 AM Scope Out: 11:25:24 AM Total Procedure Duration Time 0 hours 4 minutes 6 seconds Findings: There were esophageal mucosal changes secondary to established long-segment Lechuga's disease present in the lower third of the esophagus. The maximum longitudinal extent of these mucosal changes was 4 cm in length. Mucosa was biopsied with a cold forceps for histology in a targeted manner at intervals of 1 cm in the lower third of the esophagus. One specimen bottle was sent to pathology. Verification of patient identification for the specimen was done. Estimated blood loss was minimal. LA Grade B (one or more mucosal breaks greater than 5 mm, not extending between the tops of two mucosal folds) esophagitis with no bleeding was found 36 to 39 cm from the incisors. Biopsies were taken with a cold forceps for histology. Verification of patient identification for the specimen was done. Estimated blood loss was minimal. A medium-sized hiatal hernia was present. No gross lesions were noted in the duodenal bulb. Impression: - Esophageal mucosal changes secondary to established long-segment Lechuga's disease. Biopsied. - LA Grade B reflux esophagitis with no bleeding. Biopsied. - Medium-sized hiatal hernia. - No gross lesions in the duodenal bulb. Recommendation: - Discharge patient to home. - Resume previous diet. - Continue present medications. - Await pathology results. - Repeat upper endoscopy in 1 year for surveillance. - Return to GI office. Procedure Code(s): --- Professional --- 65150, Esophagogastroduodenoscopy, flexible, transoral; with biopsy, single or multiple CPT copyright 2021 [employer] [place] [employer]. All rights reserved. The codes documented in this report are preliminary and upon grease renderer review may be revised to meet current compliance requirements. Kanu Maya DO 10/12/2023 11:31:20 AM This report has been signed electronically. Number of Addenda: 0 Note Initiated On: 10/12/2023 11:17 AM
--- NOTE | 2023-10-12 11:32 | OP.CCLET_ITS ---
10/12/2023 Dejuan Selby [address] [place] [address] [place] [address] Re : Upper GI endoscopy procedure for Merline Natarajancristal Dear Dr. Selby This procedure was performed on September. My impressions and recommendations are as follows: Impressions : - Esophageal mucosal changes secondary to established long-segment Lechuga's disease. Biopsied. - LA Grade B reflux esophagitis with no bleeding. Biopsied. - Medium-sized hiatal hernia. - No gross lesions in the duodenal bulb. Recommendations : - Discharge patient to home. - Resume previous diet. - Continue present medications. - Await pathology results. - Repeat upper endoscopy in 1 year for surveillance. - Return to GI office. My findings are described in the full procedure note, which is enclosed. If I can be of further assistance, please feel free to contact me at . Sincerely, Kanu Friend, 10/12/2023 11:31:20 AM This report has been signed electronically.
[2023-10-12 11:35] VITALS: BP 141/71; BP 89/55; PULSE 84; RESP 14; O2SAT 98
[2023-10-12 11:40] VITALS: BP 141/71; BP 99/57; PULSE 83; RESP 16; O2SAT 99
[2023-10-12 11:48] VITALS: BP 104/55; BP 141/71; PULSE 78; RESP 16; TEMP 36.6; O2SAT 99
[2023-10-12 12:12] VITALS: BP 141/71
== END 2023-10-12 12:16 | disposition home or self-care (01) ==
LOC: EN 09:57 → AC 09:58
PROVIDERS: PCP Family Medicine; Referring Provider Family Medicine; Visit Provider Internal Medicine Gastroenterology
PROC: 0DJ08ZZ Inspection of Upper Intestinal Tract, Via Natural or Artificial Opening Endoscopic (ICD-10-PCS; CPT 43235; principal; 2023-10-12 10:55)
DX: K44.9 Diaphragmatic hernia without obstruction or gangrene (principal); R12 Heartburn; K22.70 Barrett's esophagus without dysplasia
CPT/HCPCS: 43239; 88305; 88313; 88341; 88342; J7120; J2405

== ENCOUNTER → 2023-10-31 | Outpatient (CLI) | payer MEDICARE, SELFPAY ==
--- NOTE | 2023-10-31 10:32 | NM_ITS ---
CLINICAL: 77-year-old female with history of gastroesophageal reflux disease and Lechuga''s esophagus. SEMI-SOLID PHASE 99m Tc SULFUR COLLOID GASTRIC EMPTYING STUDY COMPARISON: None available FINDINGS: The patient was administered 1.0 mCi of 99m Tc sulfur colloid mixed with oatmeal and consumed per os. Image acquisitions in the anterior-posterior projections were obtained for 60 minutes. There is prompt visualization of the stomach. There is no gastroesophageal reflux identified. The T ? linear fit was calculated to be 46.03 minutes, (Normal: 12-56 minutes). NM/Gastric Emptying Study IMPRESSION: 1. NORMAL 99m Tc sulfur colloid semi-solid phase (oatmeal) gastric emptying imaging examination. A. There is normal and preserved semi-solid phase gastric emptying compared to normal controls. (Lorenzo et al, J Nucl Med Tech 38: 186, 2010). Electronically Signed: Krzysztof Duncan DO at 9:22 EDT ,
== END | disposition home or self-care (01) ==
PROVIDERS: PCP Family Medicine; Referring Provider Internal Medicine Gastroenterology; Visit Provider Internal Medicine Gastroenterology
DX: K21.9 Gastro-esophageal reflux disease without esophagitis (principal); K22.70 Barrett's esophagus without dysplasia
CPT/HCPCS: 78264; A9541

== ENCOUNTER 2024-03-11 14:39 | Inpatient (IN) | payer MEDICARE, SELFPAY ==
[2024-03-11] VITALS (7 sets, daily range): BP systolic 138–172; BP diastolic 64–81; PULSE 75–86; RESP 14–18; TEMP 35.7–36.6; O2SAT 96–100; BMI 23.9; BMI 22.8
--- NOTE | 2024-03-11 15:30 | CT_ITS ---
EXAMINATION : Head CT w/out contrast HISTORY : HEadache, hyponatremia COMPARISON : None. TECHNIQUE : Multiple contiguous axial images were obtained from the skull base to the vertex without intravenous contrast. A radiation dose optimization technique was used for this scan. FINDINGS : There is no evidence for acute intracranial hemorrhage, mass effect, or midline shift. There is no extra-axial fluid collection. There are periventricular white matter changes consistent with chronic microvascular ischemic disease. There is sulcal widening and ventricular enlargement consistent with cerebral atrophy. Prominence of the bilateral frontal subarachnoid space with no cortical vein sign present, therefore representing normal cerebral atrophy rather than subdural collections (e.g. subdural hygromas). There is normal mcmillan-white differentiation, without CT evidence of acute ischemia or infarct. Old lacunar infarct left basal ganglia. The skull base and calvarium are unremarkable. The orbits are unremarkable. The paranasal sinuses are clear. The mastoid air cells are well-aerated. The soft tissues are unremarkable. CT/Brain/Head without Contrast IMPRESSION: No acute intracranial abnormality. Old lacunar infarct left basal ganglia. Chronic involutional and ischemic changes of the brain. Electronically Signed: Aaron Cain MD at 16:31 EDT ,
[2024-03-11] MEDS: 0.9% Normal Saline (1000mL) 1,000 ML 125 ML IV (15:41)
--- NOTE | 2024-03-11 15:41 | EX.ED.DYSGE1 ---
HPI History of Present Illness Chief Complaint: Abn Labs Informant: patient Narrative Narrative: Patient is a 78-year-old female with history of Lechuga's esophagus, GERD, hypothyroid and hypertension (on lisinopril, hydrochlorothiazide and amlodipine) presenting for hyponatremia on outpatient labs. Patient notes that she has had a hard time eating recently which is why she is following up with Dr. Maya. She had outpatient blood work drawn this morning which showed hyponatremia and she was sent to the ER for further evaluation and likely admission. Patient states over the past few days she has only really been able to drink water. She states she does not have any appetite and feels that she cannot swallow the food. She states it is more of a lack of appetite or desire to eat versus actual physical difficulty swallowing. She notes that water is only that sounds good to her. She is continue to take her blood pressure medication. She notes she also had some x-rays done this morning. She denies any vomiting. States she has some chronic constipation and will take some MiraLAX or stool softener to have a bowel movement. She does not report any blood in her stool. She notes for the past few days she has been generally more weak, has been having some headaches, some vision changes in the morning and feels unstable on her feet. She denies any head injuries. Chart review shows GI note from today where patient was complaining about difficulty eating secondary to early satiety and some nausea. Also dealing with constipation. Had a KUB, CBC and CMP ordered and prescribe Zofran. KUB has not been read yet however reviewed myself which shows a nonspecific bowel gas pattern and increased stool burden. [facility] Medical History Nausea & vomiting History of pain when walking Wears partial dentures Wears glasses Post-menopausal Anxiety Thyroid disease Arthritis Anemia Easy bruising Back pain Migraine headache History of hiatal hernia History of ulceration History of diverticulitis Gastric reflux Depression Osteoporosis Hypertension Vertigo Chronic kidney disease, stage 3a Gastric ulcer Abdominal pain Home Medications ?Medication ?Instructions ?Recorded ?Last Taken ?Type hydrochlorothiazide 25 mg tablet 25 mg PO DAILY 11/23/21 03/10/24 History omeprazole 40 mg capsule,delayed 40 mg PO BID #180 caps 02/06/23 03/10/24 Rx release amlodipine 5 mg tablet 5 mg PO QDAY 03/11/24 03/10/24 History levothyroxine 50 mcg tablet 50 mcg PO DAILY 03/11/24 03/09/24 History (Synthroid) lisinopril 30 mg tablet 30 mg PO DAILY 03/11/24 03/10/24 History ondansetron 4 mg disintegrating 4 mg PO Q8H #20 tabs 03/11/24 Unknown Rx tablet Allergy/AdvReac Type Severity Reaction Status Date / Time No Known Allergies Allergy Verified 03/11/24 14:41 Surgical History History of esophagogastroduodenoscopy (EGD) Hx of hernia repair Hx of inguinal hernia repair Hx laparoscopic cholecystectomy Hx of hysterectomy Social History Smoking Status: Never smoker alcohol intake: never ROS ROS ED Constitutional Constitutional ED: Denies chills or fever(s) Eyes Eyes: Reports blurry vision ENT ENT ED: Denies rhinorrhea or sore throat Cardiovascular Cardiovascular: Denies chest pain Respiratory/Chest Respiratory/Chest: Denies cough Gastrointestinal Gastrointestinal: Reports constipation and nausea; Denies abdominal pain or vomiting Genitourinary Genitourinary ED: Reports other Details: Reports decreased urination ; Denies dysuria Musculoskeletal Musculoskeletal: Denies arthralgias or myalgias Integumentary Denies rash Neurologic Neurologic: Reports headache(s) and weakness; Denies paresthesias Psychiatric Psychiatric: Reports anxiety Hematologic/Lymphatic Hematologic/Lymphatic: Denies easy bleeding or easy bruising EXAM Physical Exam Const Vital Signs: 03/11/24 14:40 03/11/24 15:40 03/11/24 16:40 Temperature 96.2 F L Temperature Source Temporal Pulse Rate 86 75 Respiratory Rate 18 18 Respiratory Effort Normal Respiratory Pattern Normal Blood Pressure 147/80 H 138/65 H Blood Pressure Mean 102 89 Pulse Ox 96 Oxygen Delivery Method Room Air 03/11/24 17:27 Temperature 97.9 F Temperature Source Pulse Rate 77 Respiratory Rate 14 Respiratory Effort Respiratory Pattern Blood Pressure 141/68 H Blood Pressure Mean 92 Pulse Ox 100 Oxygen Delivery Method Positive well nourished and well developed General Appearance ED: well developed HEENT Reports moist mucous membranes Eyes PERRL and EOMs intact bilaterally General Eye ED: Negative for scleral icterus Neck supple Chest Wall inspection of chest normal and palpation of chest normal Resp normal respiratory effort and clear to auscultation bilaterally Cardio regular rate and regular rhythm GI normal to inspection, nondistended, normoactive bowel sounds and non-tender Extremity normal to inspection General Extremety ED: Negative for edema General Extremity: Negative for edema Neuro oriented x3, CN's II-XII intact bilaterally and no sensory deficits noted Sensorium / Orientation: alert Motor Exam: strength 5/5 throughout and general weakness Psych mental status grossly normal Skin no rashes or lesions noted MDM MDM MDM Narrative Medical decision making narrative: Patient is evaluated for generalized weakness. She had outpatient labs today that showed hyponatremia with a sodium of 121, potassium of 3.3 and chloride of 83. Her anion gap is 16 and her creatinine is 1.04. Creatinine appears to be at her baseline (creatinine of 1.1 on 01/12/2022). Patient started on maintenance fluids. Will obtain a CT of the brain to make sure there is no mass or signs of trauma given her reported frequent falls, headaches and vision change. Will recheck labs to ensure that her hemoglobin is stable (no actively bleeding ulcer) and recheck her electrolytes to make sure this is not any lab error. Suspicion is that she has had increased free water intake, decreased oral intake and is continue to take her diuretics. Will also check a TSH. Screening EKG is obtained to ensure there is nonischemic process given her generalized weakness and vague symptoms. This does not show any signs of acute ischemia I do not think further cardiac workup is needed at this time. Lab work shows a mild anemia which is stable. Sodium is 120 now, potassium is 3.1 and her chloride is 83. He started on maintenance fluids at 125 an hour for replacement. Magnesium is also mildly low at 1.4. TSH is normal. CT of the brain does not show any acute process. Case is discussed with hospitalist, Dr. Telles. She will start the patient on magnesium and potassium supplementation. Will admit the patient to PCU for electrolyte correction and further workup for the cause.. Patient and family agreeable with this plan of care. History & Record Review Additional record(s) reviewed:: Prior outpatient record Lab Data Attestation: I reviewed the patient's lab results. Labs: Laboratory Results - last 24 hr 03/11/24 03/11/24 11:28 15:37 WBC 7.0 RBC 3.99 L Hgb 11.1 L Hct 33.5 L MCV 84.0 MCH 27.8 MCHC 33.1 RDW Std Deviation 45.8 H RDW Coeff of Catrachita 14.8 H Plt Count 282 MPV 8.2 Immature Gran % (Auto) 0.600 Neut % (Auto) 76.3 H Lymph % (Auto) 14.4 L Person % (Auto) 8.3 Eos % (Auto) 0.1 Baso % (Auto) 0.3 Absolute Neuts (auto) 5.3 Absolute Lymphs (auto) 1.00 Nucleated RBC % 0 Sodium 120 L Potassium 3.1 L Chloride 83 L Carbon Dioxide 23.0 Anion Gap 14 BUN 16 Creatinine 1.09 H Estim Creat Clear Calc 32.71 Est GFR (MDRD) Af Amer 62 Est GFR (MDRD) Non-Af 51 L BUN/Creatinine Ratio 14.7 Glucose 97 Calcium 10.2 H Magnesium 1.4 L Total Bilirubin 0.50 AST 22 ALT 16 Alkaline Phosphatase 70 Total Protein 7.0 Albumin 3.5 Globulin 3.5 Albumin/Globulin Ratio 1.0 TSH 2.210 Radiography Diagnostic Testing: Clinical Impression(s) from Imaging Studies Brain CT 03/11/24 15:30 IMPRESSION: No acute intracranial abnormality. Old lacunar infarct left basal ganglia. Chronic involutional and ischemic changes of the brain. Electronically Signed: Aaron Cain MD at 16:31 EDT , Rhythm Strip Rhythm Strip: Sinus Rhythm Rate: 80 Ectopy: None EKG Initial EKG: Attestation: I personally reviewed and interpreted this EKG as follows: Interpretation: Sinus Rhythm Comments: Normal sinus rhythm at a rate of 80 bpm Left axis deviation Normal intervals Normal ST segments Prior EKG tracings: not available for review Prior: No Prior Discharge Plan Triage Chief Complaint: Abn Labs ED Provider: Perlita Norris Dx/Rx/DC Orders Clinical Impression: Acute hyponatremia, Generalized weakness, Hypokalemia, Hypomagnesemia Prescriptions: No Action hydrochlorothiazide 25 mg tablet 25 mg PO DAILY amlodipine 5 mg tablet 5 mg PO QDAY ondansetron 4 mg tablet,disintegrating 4 mg PO Q8H Qty: 20 2RF levothyroxine [Synthroid] 50 mcg tablet 50 mcg PO DAILY lisinopril 30 mg tablet 30 mg PO DAILY omeprazole 40 mg capsule,delayed release(DR/EC) 40 mg PO BID Qty: 180 0RF Primary Care Provider: Dejuan Selby Referrals: Dejuan Selby MD [Primary Care Provider] - Print Language: Sami Disposition Disposition: Acute Care Hospital [facility]
[2024-03-11 16:02] LABS: Absolute Neutrophil Count 5.3 X10^3/uL (2.0-7.7); Basophil# 0.02 X10^3/uL; Basophil% 0.3 % (0-1); Eosinophil# 0.01 X10^3/uL; Eosinophils% 0.1 % (0-5); Hematocrit 33.5 % (37-47); Hemoglobin 11.1 g/dL (12.0-15.0); Lymphocyte % 14.4 % (19-41); Mean Corp Hgb Conc 33.1 g/dL (32-36); Mean Corpuscular Hgb 27.8 pg (27.0-32.0); Mean Platelet Vol. 8.2 fl (6.2-12.0); Monocyte# 0.58 X10^3/uL; Monocyte% 8.3 % (0-10); NRBC Flagged by Analyzer 0 % (0-5); Neutrophil % 76.3 % (47-70); Platelet Count 282 K/mm3 (150-450); RBC Distribution Width CV 14.8 % (11.6-14.6); RBC Distribution Width SD 45.8 fl (35.1-43.9); Red Blood Count 3.99 M/mm3 (4.2-5.4)
[2024-03-11 16:18] LABS: AST(SGOT) 22 U/L (15-37); Alanine Aminotransfer ALT/SGPT 16 U/L (13-56); Albumin, Serum 3.5 g/dL (3.2-5.0); Alkaline Phosphatase 70 U/L (45-117); Anion Gap 14 (5-15); BUN 16 mg/dL (7-18); BUN/Creat Ratio 14.7 RATIO (10-20); Calcium,Total 10.2 mg/dL (8.5-10.1); Chloride 83 mmol/L (98-107); Creatinine, Serum 1.09 mg/dL (0.55-1.02); EST Glomerular Filtration Rate 51 mL/min (>60); Est Glom Filt Rate - Afr Amer 62 mL/min (>60); Estimated Creatinine Clearance 32.71 ml/min; Globulin 3.5 g/dL (2.2-4.2); Glucose 97 mg/dL (74-106); Potassium 3.1 mmol/L (3.5-5.1); Sodium Level 120 mmol/L (136-145)
[2024-03-11 16:21] LABS: Magnesium 1.4 mg/dL (1.6-2.6)
--- NOTE | 2024-03-11 17:41 | PCM.HP.STD ---
HPI - General General Date of Admission: 03/11/24 Date of Service: 03/11/24 Chief Complaint: Generalized weakness/abnormal labs HPI Narrative KAITLYNN TONEY, is a 78 F who presented to the emergency department at [facility] 03/11/2024 secondary to generalized weakness and abnormal outpatient labs. Patient has been having a hard time eating. She states she is thirsty and drinks plenty has been drinking a lot of free water lately however she has not been able to eat solid foods very well and has been following with Dr. Maya. Outpatient lab was drawn this morning ordered by Dr. Maya and she was found to be markedly hyponatremia and was sent to the emergency department for admission. Patient states that she is hungry but when she goes to eat food she just cannot do it. She feels like she cannot swallow the food and stated that it is more of a lack of appetite or desire to eat versus actually physically swallowing. She has been able to take her antihypertensives and has been taking her hydrochlorothiazide up until the last 2 days. She also has noticed some generalized weakness at home and has been holding onto goldman to ambulate where she normally does not do this. Vital signs on presentation showed a temperature 96.2, heart rate 86, respiratory rate 16, blood pressure 147/80 and pulse ox was 96% on room air. CBC showed chronic stable anemia but was otherwise unremarkable. Her chemistry panel showed hyponatremia with a sodium of 120, potassium 3.1, anion gap was 14 and BUN was 16 with a serum creatinine of 1.09. Baseline creatinine is unknown. TSH is WNL. CT Brain was unremarkable. KUB from earlier today shows constipation. EKG is unremarkable. She was given IV fluids in the emergency department and request for admission was made. [facility] Medical History Nausea & vomiting History of pain when walking Wears partial dentures Wears glasses Post-menopausal Anxiety Thyroid disease Arthritis Anemia Easy bruising Back pain Migraine headache History of hiatal hernia History of ulceration History of diverticulitis Gastric reflux Depression Osteoporosis Hypertension Vertigo Chronic kidney disease, stage 3a Gastric ulcer Abdominal pain Home Medications ?Medication ?Instructions ?Recorded ?Last Taken ?Type hydrochlorothiazide 25 mg tablet 25 mg PO DAILY 11/23/21 03/10/24 History omeprazole 40 mg capsule,delayed 40 mg PO BID #180 caps 02/06/23 03/10/24 Rx release amlodipine 5 mg tablet 5 mg PO QDAY 03/11/24 03/10/24 History levothyroxine 50 mcg tablet 50 mcg PO DAILY 03/11/24 03/09/24 History (Synthroid) lisinopril 30 mg tablet 30 mg PO DAILY 03/11/24 03/10/24 History ondansetron 4 mg disintegrating 4 mg PO Q8H #20 tabs 03/11/24 Unknown Rx tablet Allergy/AdvReac Type Severity Reaction Status Date / Time No Known Allergies Allergy Verified 03/11/24 14:41 Surgical History History of esophagogastroduodenoscopy (EGD) Hx of hernia repair Hx of inguinal hernia repair Hx laparoscopic cholecystectomy Hx of hysterectomy Social History (Updated 03/11/24 @ 18:[address] Pastora Telles DO) household members: none housing: house Smoking Status: Never smoker alcohol intake: never substance use type: does not use ROS Constitutional Constitutional: Reports anorexia, fatigue and weakness; Denies change in weight, chills, fever(s), malaise, night sweats or other Eyes Eyes: Denies blurry vision, change in eye color, change in vision, discharge from eye(s), double vision, erythema, eye pain, loss of vision or other ENT HEENT: Denies abnormal hearing, dysphagia, ear pain, epistaxis, headache(s), hearing loss, nasal congestion, nasal discharge, post nasal drip, sinus pressure, sore throat or other Cardiovascular Cardiovascular: Denies chest pain, claudication, dyspnea on exertion, edema, lightheadedness, orthopnea, palpitations, paroxysmal nocturnal dyspnea, rapid heart rate, syncope or other Respiratory/Chest Respiratory/Chest: Denies cough, dyspnea, excessive phlegm production, hemoptysis, productive cough, shortness of breath at rest, shortness of breath with exertion, wheezing or other Gastrointestinal Gastrointestinal: Reports constipation and nausea; Denies abdominal pain, coffee ground emesis, diarrhea, dyspepsia, hematemesis, hematochezia, loose stools, melena, vomiting or other Genitourinary Genitourinary: Denies burning urination, difficulty urinating, dysuria, hematuria, nocturia, urinary frequency, urinary hesitancy, urinary incontinence, urinary urgency or other Musculoskeletal Musculoskeletal: Denies arthralgias, back pain, joint pain, joint stiffness, joint swelling, myalgias, neck pain or other Neurologic Neurologic: Denies abnormal gait, abnormal speech, confusion, disequilibrium, dizziness, focal weakness, headache(s), numbness, paresthesias, seizure-like activity, seizures, syncope, tingling, tremor(s) or other Psychiatric Psychiatric: Denies anxiety, depression, homicidal ideation, suicidal ideation or other Endocrine Endocrinology: Denies change in body appearance, cold intolerance, excessive sweating, heat intolerance, polydipsia, polyuria or other Hematologic/Lymphatic Hematologic/Lymphatic: Denies anemia, easy bleeding, easy bruising, lymphadenopathy or other Allergic/Immunologic Allergic/Immunologic: Denies rhinitis, hives, eczemia, asthma or other Vital Signs Vital Signs Vital Signs: 03/11/24 14:40 03/11/24 15:40 03/11/24 16:40 Temperature 96.2 F L Temperature Source Temporal Pulse Rate 86 75 Respiratory Rate 18 18 Respiratory Effort Normal Respiratory Pattern Normal Blood Pressure 147/80 H 138/65 H Blood Pressure Mean 102 89 Pulse Ox 96 Oxygen Delivery Method Room Air 03/11/24 17:27 Temperature 97.9 F Temperature Source Pulse Rate 77 Respiratory Rate 14 Respiratory Effort Respiratory Pattern Blood Pressure 141/68 H Blood Pressure Mean 92 Pulse Ox 100 Oxygen Delivery Method Weight Weight: 55.52 kg Body Mass Index (BMI) 23.9 Physical Exam Const alert, oriented x3, no apparent distress and average body habitus; Negative for healthy appearing or well nourished Constitutional Narrative: Elderly, white female, sitting bedside, patient currently appears comfortable and nontoxic but does appear fatigued General Appearance: cooperative HEENT normocephalic, head/scalp atraumatic, hearing grossly normal bilaterally and moist oral mucous membranes HEENT Narrative: Mallampati 3 Resp normal respiratory effort, no retractions, no use of accessory muscles and clear to auscultation bilaterally Auscultation: Negative for rales, rhonchi or wheezes Cardio regular rate, regular rhythm, S1 normal heart sound, S2 normal heart sound, no murmurs, no rub, no gallops and no clicks GI normal to inspection, nondistended, normoactive bowel sounds, soft to palpation and non-tender Extremity no clubbing, cyanosis or edema Extremity Narrative: 2+ pedal pulses Neuro oriented x3, moves all extremities and no focal motor deficits Neuro Narrative: Mild proximal generalized weakness noted Speech: speech normal Psych affect normal Psych Narrative: Very pleasant, interacts appropriately Results Lab / Micro Data 03/11/24 15:37 03/11/24 15:37 Labs: Laboratory Results - last 24 hr 03/11/24 11:28: Magnesium 1.4 L 03/11/24 15:37: WBC 7.0, RBC 3.99 L, Hgb 11.1 L, Hct 33.5 L, MCV 84.0, MCH 27.8, MCHC 33.1, RDW Std Deviation 45.8 H, RDW Coeff of Catrachita 14.8 H, Plt Count 282, MPV 8.2, Immature Gran % (Auto) 0.600, Neut % (Auto) 76.3 H, Lymph % (Auto) 14.4 L, Park % (Auto) 8.3, Eos % (Auto) 0.1, Baso % (Auto) 0.3, Absolute Neuts (auto) 5.3, Absolute Lymphs (auto) 1.00, Nucleated RBC % 0, Sodium 120 L, Potassium 3.1 L, Chloride 83 L, Carbon Dioxide 23.0, Anion Gap 14, BUN 16, Creatinine 1.09 H, Estim Creat Clear Calc 32.71, Est GFR (MDRD) Af Amer 62, Est GFR (MDRD) Non-Af 51 L, BUN/Creatinine Ratio 14.7, Glucose 97, Calcium 10.2 H, Total Bilirubin 0.50, AST 22, ALT 16, Alkaline Phosphatase 70, Total Protein 7.0, Albumin 3.5, Globulin 3.5, Albumin/Globulin Ratio 1.0, TSH 2.210 Rhythm Strip Rhythm Strip: Sinus Rhythm Rate: 80 Ectopy: None Imaging Radiology Impression Brain CT 03/11/24 15:30 IMPRESSION: No acute intracranial abnormality. Old lacunar infarct left basal ganglia. Chronic involutional and ischemic changes of the brain. Electronically Signed: Aaron Cain MD at 16:31 EDT , Assessment & Plan Assessment/Plan (1) Hypomagnesemia: (2) Hypokalemia: (3) Acute hyponatremia: (4) Generalized weakness: (5) Constipation: PLAN: Plan Acute hyponatremia -Highly suspect related to decreased solute intake and ongoing use of hydrochlorothiazide -Will treat initially with IV fluids at 100 cc/h with normal saline -Hold home HCTZ -Check uric acid, cortisol, urine sodium, urine osmolality, serum osmolality -May need to adjust treatment based on these results and serial sodium results -TSH was within normal limits -Check every 6 hours sodium levels--> goal adjustment is no more than 12 mill colons in the first 24 hours Generalized weakness -Likely related to the above -Consult PT/OT -Consult case management for assistance with discharge planning Poor appetite/early satiety -Suspect malnutrition -Start Ensure -Consult gastroenterology -Consult dietitian Acute hypokalemia -P.o. potassium replacement -Recheck in a.m. Acute hypomagnesemia -IV magnesium replacement-2 g -Repeat mag in a.m. Constipation -This is chronic -Will schedule MiraLAX twice daily Essential hypertension -Continue home lisinopril -Continue home amlodipine -Hold HCTZ -As needed hydralazine available for systolic blood pressure greater than 160 Hypothyroidism -TSH is within normal limits -Continue home levothyroxine GERD/Lechuga's esophagus -Continue home PPI DVT prophylaxis -Subcu Lovenox daily CODE STATUS -Full code as verified at the time of admission Charges/Coding Visit Charges Inpatient E&M: 47180 Init Hosp L2
[2024-03-11 18:02] LABS: Uric Acid 6.4 mg/dL (2.6-6.0)
[2024-03-11 18:31] LABS: Sodium Level 123 mmol/L (136-145)
[2024-03-11 18:42] LABS: Osmolality, Serum 253 mOsm/KG (280-301)
[2024-03-11] MEDS: Polyethylene Glycol 3350 17 GM PACKET PO (20:10)
[2024-03-11] MEDS: Pantoprazole Sodium 40 MG Tablet PO (20:10)
[2024-03-11] MEDS: Potassium Chloride Oral Tablet 20 MEQ 40 MEQ PO (20:10)
[2024-03-11] MEDS: Magnesium Sulfate 2 GM in Dextrose 5%-Water (100mL Bag) 100 ML IV (20:23)
[2024-03-11] MEDS: Lactated Ringers 1,000 ML 75 ML IV (20:23)
[2024-03-11] MEDS: 0.9% Saline Lock 10 ML Syringe IV (20:23)
[2024-03-11 22:32] LABS: Mucous, Urine 0 SEEN /hpf (<or=2+); Red Blood Cells-Urine 0 SEEN /hpf (0-5)
[2024-03-11 22:38] LABS: Color, Urine Yellow (Yellow); Glucose, Dipstick Normal (Normal); Ketone-Dipstick 50 mg/dl (Negative); Leukocyte Esterase-Dipstick 100 /ul (Negative); Nitrite-Dipstick Positive (Negative); Occult Blood-Urine Negative /ul (Negative); Protein-Dipstick Negative (Negative); Specific Gravity, Urine 1.015 (1.002-1.030); Urine Bilirubin Dipstick Negative (Negative); Urine Clarity Sl. Cloudy (Clear); Urine Urobilinogen Normal (Normal)
[2024-03-11 22:43] LABS: Urine Sodium 62 mmol/L (Not Establ.)
[2024-03-11 22:51] LABS: Bacteria 4+ /hpf (None Seen); Squamous Epithelial Cells - UA 0-5 SEEN /hpf (5-10); White Blood Cells 5-10 SEEN /hpf (0-5)
[2024-03-11] MEDS: MELATONIN 3 MG TABLET PO (23:00)
[2024-03-11 23:07] LABS: Osmolality, Urine 292 mOsm/KG
[2024-03-12 00:11] LABS: Sodium Level 123 mmol/L (136-145)
[2024-03-12 02:35] VITALS: BP 140/85; PULSE 84; RESP 16; TEMP 36.2; O2SAT 100
[2024-03-12 05:23] VITALS: BP 158/78; PULSE 79; RESP 16; TEMP 36.1; O2SAT 99; BMI 22.6
[2024-03-12] MEDS: Levothyroxine 50 MCG Tablet PO (05:28)
[2024-03-12 05:51] LABS: Absolute Lymphocyte Count 0.94 X10^3/uL (0.83-4.51); Basophil# 0.01 X10^3/uL; Basophil% 0.2 % (0-1); Eosinophil# 0.05 X10^3/uL; Eosinophils% 1.1 % (0-5); Hematocrit 30.4 % (37-47); Hemoglobin 10.3 g/dL (12.0-15.0); Lymphocyte # 0.94 X10^3/ul (0.83-4.51); Lymphocyte % 20.7 % (19-41); Mean Corp Hgb Conc 33.9 g/dL (32-36); Mean Corpuscular Hgb 28.1 pg (27.0-32.0); Mean Corpuscular Volume 82.8 fL (81-99); Monocyte# 0.49 X10^3/uL; Monocyte% 10.8 % (0-10); NRBC Flagged by Analyzer 0 % (0-5); Neutrophil # 3.02 X10^3/uL (2.7-7.7); Neutrophil % 66.5 % (47-70); Platelet Count 252 K/mm3 (150-450); RBC Distribution Width CV 14.9 % (11.6-14.6); RBC Distribution Width SD 44.7 fl (35.1-43.9); Red Blood Count 3.67 M/mm3 (4.2-5.4); White Blood Count 4.5 K/mm3 (4.4-11.0)
[2024-03-12 06:29] LABS: Phosphorus 1.5 mg/dL (2.5-4.9)
[2024-03-12 06:41] LABS: AST(SGOT) 20 U/L (15-37); Alanine Aminotransfer ALT/SGPT 12 U/L (13-56); Alkaline Phosphatase 63 U/L (45-117); Anion Gap 7 (5-15); BUN 11 mg/dL (7-18); BUN/Creat Ratio 14.9 RATIO (10-20); Calcium,Total 9.1 mg/dL (8.5-10.1); Chloride 89 mmol/L (98-107); Creatinine, Serum 0.74 mg/dL (0.55-1.02); EST Glomerular Filtration Rate 81 mL/min (>60); Est Glom Filt Rate - Afr Amer 98 mL/min (>60); Estimated Creatinine Clearance 40.96 ml/min; Globulin 3.1 g/dL (2.2-4.2); Glucose 92 mg/dL (74-106); Magnesium 1.9 mg/dL (1.6-2.6); Potassium 3.9 mmol/L (3.5-5.1); Protein, Total 6.1 g/dL (6.4-8.2); Sodium Level 122 mmol/L (136-145)
[2024-03-12 08:29] VITALS: BP 169/84; PULSE 82; RESP 18; TEMP 36.7; O2SAT 99
[2024-03-12] MEDS: 0.9% Normal Saline (1000mL) 1,000 ML 150 ML IV ×2 (08:31→15:24)
[2024-03-12] MEDS: Enoxaparin 40 MG/0.4 ML Syringe SC (08:31)
[2024-03-12] MEDS: Ensure Plus High Protein 120 ML LIQUID PO ×2 (08:32→20:55)
[2024-03-12] MEDS: Lisinopril 10 MG Tablet 30 MG PO (08:32)
[2024-03-12] MEDS: Pantoprazole Sodium 40 MG Tablet PO ×2 (08:32→20:51)
[2024-03-12] MEDS: amLODIPine 5 MG Tablet PO (08:32)
[2024-03-12 08:47] VITALS: O2SAT 97
--- NOTE | 2024-03-12 11:05 | CASEMGMT ---
RN CM Face to Face with patient for initial transition planning/care coordination assessment. RN CM introduced self and role at [facility]. Patient lying in bed, alert and oriented, daughter at bedside. Patient willing to participate in assessment and is able to answer all questions appropriately. Care providers, pharmacy, and demographics verified. Strata: 1 PCP: Bal Specialists: FEDERICO Maya Preferred [facility]acy:[facility] Insurance: [employer] [facility] Prescription Benefit: yes Living Will/HPOA: yes, daughters LNOK: daughters Living Arrangements: Patient lives with daughter in a single story home with 2 steps to enter. Patient is independent at home. Transportation: daughters DME/HHC: Patient has no DME in the home. No previous HHC or SNF. Patient wishes to discharge home, will possible outpatient therapy. Patient states she has no further needs or concerns at this time. CM to follow for discharge planning needs that may arise. Disposition Plan: Patient to discharge home with outpatient therapy, family support, and follow-up plans in place. Laney MUSA, RN, CM
--- NOTE | 2024-03-12 13:04 | PN_ITS ---
Subjective Subjective Patient seen and examined. She had no active complaints. She was admitted with a complaint of generalised weakness and found to have hyponatremia. She says she has been having difficulty eating, and had been drinking lots of free eater. She was found to be hyponatremic. She says she does feel better today. She denies any fever, chills, cough, chest pain, palpitations, dizziness, nausea, vomiting or any other symptoms. Review of systems is otherwise negative. Objective Data Objective Data Vital Signs: Vital Signs Temp Pulse Resp BP Pulse Ox O2 Del Method 98.0 F 82 18 169/84 H 97 Room Air 03/12/24 08:29 03/12/24 08:29 03/12/24 08:29 03/12/24 08:29 03/12/24 08:47 03/12/24 08:47 Oxygen Delivery Method Room Air Weight: 115 lb 11.883 oz Body Mass Index (BMI) 22.6 Intake & Output: Intake and Output for Last 24 Hours 03/10/24 03/11/24 03/12/24 23:59 23:59 23:59 Intake Total 666.5 / 666.5 1160 / 1160 Output Total 220 / 220 Balance 446.5 / 446.5 1160 / 1160 Lab / Micro Data 03/12/24 05:14 03/12/24 05:14 Labs: Laboratory Results - last 24 hr 03/11/24 11:28: Magnesium 1.4 L 03/11/24 15:37: WBC 7.0, RBC 3.99 L, Hgb 11.1 L, Hct 33.5 L, MCV 84.0, MCH 27.8, MCHC 33.1, RDW Std Deviation 45.8 H, RDW Coeff of [place] 14.8 H, Plt Count 282, MPV 8.2, Immature Gran % (Auto) 0.600, Neut % (Auto) 76.3 H, Lymph % (Auto) 14.4 L, [place] % (Auto) 8.3, Eos % (Auto) 0.1, Baso % (Auto) 0.3, Absolute Neuts (auto) 5.3, Absolute Lymphs (auto) 1.00, Nucleated RBC % 0, Sodium 120 L, Potassium 3.1 L, Chloride 83 L, Carbon Dioxide 23.0, Anion Gap 14, BUN 16, Creatinine 1.09 H, Estim Creat Clear Calc 32.71, Est GFR (MDRD) Af Amer 62, Est GFR (MDRD) Non-Af 51 L, BUN/Creatinine Ratio 14.7, Glucose 97, Uric Acid 6.4 H, Calcium 10.2 H, Total Bilirubin 0.50, AST 22, ALT 16, Alkaline Phosphatase 70, Total Protein 7.0, Albumin 3.5, Globulin 3.5, Albumin/Globulin Ratio 1.0, TSH 2.210 03/11/24 18:05: Sodium 123 L, Serum Osmolality 253 L, Cortisol 14.10 03/11/24 22:23: Urine Color Yellow, Urine Clarity Sl. Cloudy, Urine pH 6.0, Ur Specific [place] 1.015, Urine Protein Negative, Urine Glucose (UA) Normal, Urine Ketones 50 H, Urine Occult Blood Negative, Urine Nitrite Positive H, Urine Bilirubin Negative, Urine Urobilinogen Normal, Ur Leukocyte Esterase 100 H, Urine RBC 0 SEEN, Urine WBC 5-10 SEEN, Ur Squamous Epith Cells 0-5 SEEN, Urine Bacteria 4+, Urine Mucus 0 SEEN, Urine Osmolality 292, Ur Random Sodium 62 03/11/24 23:55: Sodium 123 L 03/12/24 05:14: WBC 4.5, RBC 3.67 L, Hgb 10.3 L, Hct 30.4 L, MCV 82.8, MCH 28.1, MCHC 33.9, RDW Std Deviation 44.7 H, RDW Coeff of [place] 14.9 H, Plt Count 252, MPV 8.0, Immature Gran % (Auto) 0.700, Neut % (Auto) 66.5, Lymph % (Auto) 20.7, [place] % (Auto) 10.8 H, Eos % (Auto) 1.1, Baso % (Auto) 0.2, Absolute Neuts (auto) 3.0, Absolute Lymphs (auto) 0.94, Nucleated RBC % 0, Sodium 122 L, Potassium 3.9, C hloride 89 L, Carbon Dioxide 26.0, Anion Gap 7, BUN 11, Creatinine 0.74, Estim Creat Clear Calc 40.96, Est GFR (MDRD) Af Amer 98, Est GFR (MDRD) Non-Af 81, BUN/Creatinine Ratio 14.9, Glucose 92, Calcium 9.1, Phosphorus 1.5 L, Magnesium 1.9, Total Bilirubin 0.40, AST 20, ALT 12 L, Alkaline Phosphatase 63, Total Protein 6.1 L, Albumin 3.0 L, Globulin 3.1, Albumin/Globulin Ratio 1.0 03/12/24 08:36: Sodium Cancelled, Potassium Cancelled, Chloride Cancelled, Carbon Dioxide Cancelled, Anion Gap Cancelled, BUN Cancelled, Creatinine Cancelled, Estim Creat Clear Calc Cancelled, Est GFR (MDRD) Af Amer Cancelled, Est GFR (MDRD) Non-Af Cancelled, BUN/Creatinine Ratio Cancelled, Glucose Cancelled, Calcium Cancelled Radiography Diagnostic Testing: Radiology Impression Brain CT 03/11/24 15:30 IMPRESSION: No acute intracranial abnormality. Old lacunar infarct left basal ganglia. Chronic involutional and ischemic changes of the brain. Electronically Signed: Aaron Cain MD at 16:31 EDT , Rhythm Strip Rhythm Strip: Sinus Rhythm Rate: 80 Ectopy: None Physical Exam Const alert, oriented x3, no apparent distress and well nourished General Appearance: cooperative and well developed HEENT normocephalic and head/scalp atraumatic HEENT Narrative: oral mucosa slightly dry Eyes PERRL and EOMs intact bilaterally Neck no lymphadenopathy, supple and no JVD Lymph Lymphatic: no lymphadenopathy noted and no lymphedema noted Resp normal respiratory effort, normal air movement and clear to auscultation bilaterally Cardio regular rate, regular rhythm, S1 normal heart sound, S2 normal heart sound and no murmurs GI normal to inspection, nondistended, normoactive bowel sounds, soft to palpation, non-tender and non-distended Extremity normal capillary refill, no clubbing, cyanosis or edema and no calf tenderness General Extremity: no tenderness to palpation of joints or extremities Skin General Skin Exam: no breakdown Neuro CN's II-XII intact bilaterally, no focal motor deficits, no sensory deficits noted and deep tendon reflexes 2+ bilaterally Motor Exam: strength 5/5 throughout and general weakness Psych thought process normal, cooperative and affect normal Appearance: appropriate Assessment & Plan Assessment/Plan (1) Acute hyponatremia: (2) Generalized weakness: PLAN: Plan #Acute hyponatremia * Likely due to decreased solute intake. She was also taking hydrochlorothiazide. * Hydrochlorothiazide currently on hold. Sodium was 121 on admission and is only 122 today. * Will switch fluids from Ringer's lactate to IV fluid normal saline and increase rate to 150 cc/h. TSH is within normal limits. * urine osmolality and serum osmolality: * trend sodium and recheck every 4 hours. goal is to increase sodium by 6- 8mmol/L within the first 24 hours * #Debility and weakness * likely due to dehydration and hyponatremia * PT OT on board. Fall precautions. #Dysphagia * Speech has been having difficulty eating. She denies that is difficult to swallow but says she just does not feel like eating. She did see GI on 03/11/2024 and a KUB was ordered. Differential diagnosis included constipation gastroparesis per GI. * GI also consulted during this admission. I do think patient can follow-up with GI on outpatient basis. She is familiar with GI and has been seen on an outpatient basis. She was diagnosed with Lechuga's esophagus and is on PPI * #Hypokalemia and hypomagnesemia: Will replace aggressively and trend #Benign essential hypertension: On lisinopril and amlodipine. Hydrochlorothiazide on hold due to hyponatremia. IV hydralazine as needed #GERD: On PPI DVT prophylaxis: Lovenox Charges/Coding Visit Charges Inpatient E&M: 88798 Subs Hosp L2
[2024-03-12 13:06] LABS: Anion Gap 11 (5-15); BUN 9 mg/dL (7-18); BUN/Creat Ratio 15.3 RATIO (10-20); Chloride 90 mmol/L (98-107); Creatinine, Serum 0.59 mg/dL (0.55-1.02); EST Glomerular Filtration Rate 105 mL/min (>60); Est Glom Filt Rate - Afr Amer 127 mL/min (>60); Estimated Creatinine Clearance 40.96 ml/min; Glucose 90 mg/dL (74-106); Potassium 3.8 mmol/L (3.5-5.1); Sodium Level 124 mmol/L (136-145)
[2024-03-12] MEDS: Na Biphos/Potassium Phosphate PACKET 1 PACKET PO ×2 (13:45→20:51)
[2024-03-12 15:23] VITALS: BP 150/89; PULSE 90; RESP 18; TEMP 36.7; O2SAT 99
[2024-03-12 17:03] LABS: Anion Gap 11 (5-15); BUN 7 mg/dL (7-18); BUN/Creat Ratio 11.3 RATIO (10-20); Calcium,Total 8.6 mg/dL (8.5-10.1); Chloride 91 mmol/L (98-107); Creatinine, Serum 0.62 mg/dL (0.55-1.02); EST Glomerular Filtration Rate 99 mL/min (>60); Est Glom Filt Rate - Afr Amer 119 mL/min (>60); Estimated Creatinine Clearance 40.96 ml/min; Glucose 110 mg/dL (74-106); Potassium 3.7 mmol/L (3.5-5.1); Sodium Level 124 mmol/L (136-145)
--- NOTE | 2024-03-12 17:16 | EX.PCM.CON.G ---
HPI Consult Data Date of Consult: 03/12/24 HPI Narrative Reason for Consultation: Dysphagia HPI Narrative: KAITLYNN TONEY, is a 78-year-old female with history of Lechuga's esophagus, GERD, hypothyroid and hypertension (on lisinopril, hydrochlorothiazide and amlodipine) presenting for hyponatremia on outpatient labs. Patient notes that she has had a hard time eating recently which is why she is following up with myself. She had outpatient blood work drawn this morning which showed hyponatremia and she was sent to the ER for further evaluation and likely admission. Patient states over the past few days she has only really been able to drink water. She states she does not have any appetite and feels that she cannot swallow the food. She states it is more of a lack of appetite or desire to eat versus actual physical difficulty swallowing. Although she does have some trouble swallowing. EGD 10.12.23 Esophageal mucosal changes secondary to established long-segment Lechuga's disease. Biopsied. LA Grade B reflux esophagitis with no bleeding. Biopsied. Medium-sized hiatal hernia. No gross lesions in the duodenal bulb. She notes that water is only that sounds good to her. She is continue to take her blood pressure medication. She notes she also had some x-rays done yesterday morning. She denies any vomiting. States she has some chronic constipation and will take some MiraLAX or stool softener to have a bowel movement. She does not report any blood in her stool. She notes for the past few days she has been generally more weak, has been having some headaches, some vision changes in the morning and feels unstable on her feet. She denies any head injuries. She had a CT scan abdomen pelvis that shows some stool burden along with sigmoid diverticular disease a hiatal hernia and inguinal hernia containing some adipose tissue without signs of obstruction. KUB shows a nonspecific bowel gas pattern and increased stool burden. [facility] Medical History Nausea & vomiting History of pain when walking Wears partial dentures Wears glasses Post-menopausal Anxiety Thyroid disease Arthritis Anemia Easy bruising Back pain Migraine headache History of hiatal hernia History of ulceration History of diverticulitis Gastric reflux Depression Osteoporosis Hypertension Vertigo Chronic kidney disease, stage 3a Gastric ulcer Abdominal pain Home Medications ?Medication ?Instructions ?Recorded ?Last Taken ?Type hydrochlorothiazide 25 mg tablet 25 mg PO DAILY 11/23/21 03/10/24 History omeprazole 40 mg capsule,delayed 40 mg PO BID #180 caps 02/06/23 03/10/24 Rx release amlodipine 5 mg tablet 5 mg PO QDAY 03/11/24 03/10/24 History levothyroxine 50 mcg tablet 50 mcg PO DAILY 03/11/24 03/09/24 History (Synthroid) lisinopril 30 mg tablet 30 mg PO DAILY 03/11/24 03/10/24 History ondansetron 4 mg disintegrating 4 mg PO Q8H #20 tabs 03/11/24 Unknown Rx tablet Allergy/AdvReac Type Severity Reaction Status Date / Time No Known Allergies Allergy Verified 03/11/24 14:41 Surgical History History of esophagogastroduodenoscopy (EGD) Hx of hernia repair Hx of inguinal hernia repair Hx laparoscopic cholecystectomy Hx of hysterectomy Social History (Updated 03/11/24 @ 18:[address] Pastora Telles DO) household members: none housing: house Smoking Status: Never smoker alcohol intake: never substance use type: does not use ROS Constitutional Constitutional: Reports anorexia, fatigue and weakness; Denies change in weight, chills, fever(s), malaise, night sweats or other Eyes Eyes: Denies blurry vision, change in eye color, change in vision, discharge from eye(s), double vision, erythema, eye pain, loss of vision or other ENT HEENT: Denies abnormal hearing, dysphagia, ear pain, epistaxis, headache(s), hearing loss, nasal congestion, nasal discharge, post nasal drip, sinus pressure, sore throat or other Cardiovascular Cardiovascular: Denies chest pain, claudication, dyspnea on exertion, edema, lightheadedness, orthopnea, palpitations, paroxysmal nocturnal dyspnea, rapid heart rate, syncope or other Respiratory/Chest Respiratory/Chest: Denies cough, dyspnea, excessive phlegm production, hemoptysis, productive cough, shortness of breath at rest, shortness of breath with exertion, wheezing or other Gastrointestinal Gastrointestinal: Reports constipation and nausea; Denies abdominal pain, coffee ground emesis, diarrhea, dyspepsia, hematemesis, hematochezia, loose stools, melena, vomiting or other Genitourinary Genitourinary: Denies burning urination, difficulty urinating, dysuria, hematuria, nocturia, urinary frequency, urinary hesitancy, urinary incontinence, urinary urgency or other Musculoskeletal Musculoskeletal: Denies arthralgias, back pain, joint pain, joint stiffness, joint swelling, myalgias, neck pain or other Neurologic Neurologic: Denies abnormal gait, abnormal speech, confusion, disequilibrium, dizziness, focal weakness, headache(s), numbness, paresthesias, seizure-like activity, seizures, syncope, tingling, tremor(s) or other Psychiatric Psychiatric: Denies anxiety, depression, homicidal ideation, suicidal ideation or other Endocrine Endocrinology: Denies change in body appearance, cold intolerance, excessive sweating, heat intolerance, polydipsia, polyuria or other Hematologic/Lymphatic Hematologic/Lymphatic: Denies anemia, easy bleeding, easy bruising, lymphadenopathy or other Allergic/Immunologic Allergic/Immunologic: Denies rhinitis, hives, eczemia, asthma or other Physical Exam Const alert, oriented x3, no apparent distress and well nourished General Appearance: cooperative and well developed HEENT normocephalic and head/scalp atraumatic HEENT Narrative: oral mucosa slightly dry Eyes PERRL and EOMs intact bilaterally Neck no lymphadenopathy, supple and no JVD Lymph Lymphatic: no lymphadenopathy noted and no lymphedema noted Resp normal respiratory effort, normal air movement and clear to auscultation bilaterally Cardio regular rate, regular rhythm, S1 normal heart sound, S2 normal heart sound and no murmurs GI normal to inspection, nondistended, normoactive bowel sounds, soft to palpation, non-tender and non-distended Extremity normal capillary refill, no clubbing, cyanosis or edema and no calf tenderness General Extremity: no tenderness to palpation of joints or extremities Skin General Skin Exam: no breakdown Neuro CN's II-XII intact bilaterally, no focal motor deficits, no sensory deficits noted and deep tendon reflexes 2+ bilaterally Motor Exam: strength 5/5 throughout and general weakness Psych thought process normal, cooperative and affect normal Appearance: appropriate Lab / Micro Data 03/12/24 05:14 03/12/24 16:34 Labs: Laboratory Results - last 24 hr 03/11/24 15:37: Uric Acid 6.4 H 03/11/24 18:05: Sodium 123 L, Serum Osmolality 253 L, Cortisol 14.10 03/11/24 22:23: Urine Color Yellow, Urine Clarity Sl. Cloudy, Urine pH 6.0, Ur Specific [place] 1.015, Urine Protein Negative, Urine Glucose (UA) Normal, Urine Ketones 50 H, Urine Occult Blood Negative, Urine Nitrite Positive H, Urine Bilirubin Negative, Urine Urobilinogen Normal, Ur Leukocyte Esterase 100 H, Urine RBC 0 SEEN, Urine WBC 5-10 SEEN, Ur Squamous Epith Cells 0-5 SEEN, Urine Bacteria 4+, Urine Mucus 0 SEEN, Urine Osmolality 292, Ur Random Sodium 62 03/11/24 23:55: Sodium 123 L 03/12/24 05:14: WBC 4.5, RBC 3.67 L, Hgb 10.3 L, Hct 30.4 L, MCV 82.8, MCH 28.1, MCHC 33.9, RDW Std Deviation 44.7 H, RDW Coeff of [place] 14.9 H, Plt Count 252, MPV 8.0, Immature Gran % (Auto) 0.700, Neut % (Auto) 66.5, Lymph % (Auto) 20.7, [place] % (Auto) 10.8 H, Eos % (Auto) 1.1, Baso % (Auto) 0.2, Absolute Neuts (auto) 3.0, Absolute Lymphs (auto) 0.94, Nucleated RBC % 0, Sodium 122 L, Potassium 3.9, Chloride 89 L, Carbon Dioxide 26.0, Anion Gap 7, BUN 11, Creatinine 0.74, Estim Creat Clear Calc 40.96, Est GFR (MDRD) Af Amer 98, Est GFR (MDRD) Non-Af 81, BUN/Creatinine Ratio 14.9, Glucose 92, Calcium 9.1, Phosphorus 1.5 L, Magnesium 1.9, Total Bilirubin 0.40, AST 20, ALT 12 L, Alkaline Phosphatase 63, Total Protein 6.1 L, Albumin 3.0 L, Globulin 3.1, Albumin/Globulin Ratio 1.0 03/12/24 08:36: Sodium Cancelled, Potassium Cancelled, Chloride Cancelled, Carbon Dioxide Cancelled, Anion Gap Cancelled, BUN Cancelled, Creatinine Cancelled, Estim Creat Clear Calc Cancelled, Est GFR (MDRD) Af Amer Cancelled, Est GFR (MDRD) Non-Af Cancelled, BUN/Creatinine Ratio Cancelled, Glucose Cancelled, Calcium Cancelled 03/12/24 11:50: Sodium 124 L, Potassium 3.8, Chloride 90 L, Carbon Dioxide 23.0, Anion Gap 11, BUN 9, Creatinine 0.59, Estim Creat Clear Calc 40.96, Est GFR (MDRD) Af Amer 127, Est GFR (MDRD) Non-Af 105, BUN/Creatinine Ratio 15.3, Glucose 90, Calcium 9.0 03/12/24 16:34: Sodium 124 L, Potassium 3.7, Chloride 91 L, Carbon Dioxide 22.0, Anion Gap 11, BUN 7, Creatinine 0.62, Estim Creat Clear Calc 40.96, Est GFR (MDRD) Af Amer 119, Est GFR (MDRD) Non-Af 99, BUN/Creatinine Ratio 11.3, Glucose 110 H, Calcium 8.6 Rhythm Strip Rhythm Strip: Sinus Rhythm Rate: 80 Ectopy: None Assessment & Plan Assessment/Plan (1) Hypomagnesemia: (2) Hypokalemia: (3) Generalized weakness: (4) Constipation: PLAN: Plan 78-year-old very pleasant woman with weight loss, lethargy and determined to have severe hyponatremia possibly secondary to medications and very poor appetite. Poor appetite/early satiety/esophageal dysphagia -Suspect malnutrition -Start Ensure -I am unsure why she has lack of appetite. She does suffer from severe gastritis and could be at risk for autoimmune gastritis with low B12, folic acid. She also could be experiencing lack of appetite secondary to relative adrenal insufficiency. 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 I did not dilate her esophagus in September. That might need to be done while she is inpatient. -I will check an a.m. cortisol, ESR, CRP, antiparietal cell antibody, gastrin level, chromogranin A, antiintrinsic factor antibody, B12, folic acid and celiac disease profile. -Continue protein supplementation -Her BMI is still 22 which is not not severely malnourished at this time Charges/Coding Visit Charges Inpatient E&M: 53908 Init Hosp L3
[2024-03-12 18:08] LABS: Vitamin B12 > 2000 pg/mL (211-911)
[2024-03-12 20:52] LABS: Anion Gap 11 (5-15); BUN 8 mg/dL (7-18); BUN/Creat Ratio 14.2 RATIO (10-20); Calcium,Total 8.6 mg/dL (8.5-10.1); Chloride 92 mmol/L (98-107); Creatinine, Serum 0.56 mg/dL (0.55-1.02); EST Glomerular Filtration Rate 110 mL/min (>60); Est Glom Filt Rate - Afr Amer 133 mL/min (>60); Estimated Creatinine Clearance 40.96 ml/min; Glucose 95 mg/dL (74-106); Potassium 3.5 mmol/L (3.5-5.1); Sodium Level 125 mmol/L (136-145)
[2024-03-12 21:20] VITALS: BP 156/85; PULSE 92; RESP 18; TEMP 36.8; O2SAT 98
[2024-03-13 00:55] LABS: Anion Gap 9 (5-15); BUN 8 mg/dL (7-18); BUN/Creat Ratio 12.8 RATIO (10-20); Calcium,Total 8.8 mg/dL (8.5-10.1); Chloride 93 mmol/L (98-107); Creatinine, Serum 0.63 mg/dL (0.55-1.02); EST Glomerular Filtration Rate 98 mL/min (>60); Est Glom Filt Rate - Afr Amer 118 mL/min (>60); Estimated Creatinine Clearance 40.96 ml/min; Glucose 96 mg/dL (74-106); Potassium 3.7 mmol/L (3.5-5.1); Sodium Level 126 mmol/L (136-145)
[2024-03-13] MEDS: Acetaminophen 325 MG Tablet 650 MG PO (01:55)
[2024-03-13 02:16] VITALS: BMI 24.3
[2024-03-13 03:20] VITALS: BP 158/89; PULSE 83; RESP 18; TEMP 36.2; O2SAT 98
[2024-03-13 04:53] LABS: Absolute Lymphocyte Count 1.01 X10^3/uL (0.83-4.51); Basophil# 0.01 X10^3/uL; Basophil% 0.2 % (0-1); Eosinophil# 0.05 X10^3/uL; Eosinophils% 1.1 % (0-5); Hematocrit 26.1 % (37-47); Hemoglobin 8.8 g/dL (12.0-15.0); Lymphocyte # 1.01 X10^3/ul (0.83-4.51); Mean Corp Hgb Conc 33.7 g/dL (32-36); Mean Corpuscular Hgb 28.1 pg (27.0-32.0); Mean Corpuscular Volume 83.4 fL (81-99); Mean Platelet Vol. 8.4 fl (6.2-12.0); Monocyte% 10.9 % (0-10); NRBC Flagged by Analyzer 0 % (0-5); Neutrophil # 3.01 X10^3/uL (2.7-7.7); Neutrophil % 65.4 % (47-70); Platelet Count 197 K/mm3 (150-450); RBC Distribution Width CV 15.1 % (11.6-14.6); RBC Distribution Width SD 45.3 fl (35.1-43.9); Red Blood Count 3.13 M/mm3 (4.2-5.4); White Blood Count 4.6 K/mm3 (4.4-11.0)
[2024-03-13 05:09] LABS: Anion Gap 8 (5-15); BUN 8 mg/dL (7-18); BUN/Creat Ratio 14.3 RATIO (10-20); Calcium,Total 8.2 mg/dL (8.5-10.1); Chloride 93 mmol/L (98-107); Creatinine, Serum 0.56 mg/dL (0.55-1.02); EST Glomerular Filtration Rate 111 mL/min (>60); Est Glom Filt Rate - Afr Amer 134 mL/min (>60); Estimated Creatinine Clearance 44.92 ml/min; Glucose 97 mg/dL (74-106); Potassium 3.5 mmol/L (3.5-5.1); Sodium Level 125 mmol/L (136-145)
[2024-03-13] MEDS: Levothyroxine 50 MCG Tablet PO (05:27)
[2024-03-13 07:46] VITALS: O2SAT 97
[2024-03-13 08:54] VITALS: BP 174/80; PULSE 87; RESP 16; TEMP 36.3; O2SAT 100
[2024-03-13] MEDS: amLODIPine 5 MG Tablet PO (08:56)
[2024-03-13] MEDS: Lisinopril 10 MG Tablet 30 MG PO (08:56)
[2024-03-13 08:59] LABS: Anion Gap 11 (5-15); BUN 7 mg/dL (7-18); BUN/Creat Ratio 11.9 RATIO (10-20); Calcium,Total 8.8 mg/dL (8.5-10.1); Chloride 92 mmol/L (98-107); Creatinine, Serum 0.59 mg/dL (0.55-1.02); EST Glomerular Filtration Rate 105 mL/min (>60); Est Glom Filt Rate - Afr Amer 127 mL/min (>60); Estimated Creatinine Clearance 44.92 ml/min; Glucose 98 mg/dL (74-106); Potassium 3.5 mmol/L (3.5-5.1); Sodium Level 126 mmol/L (136-145)
[2024-03-13 10:06] VITALS: BP 148/80; PULSE 83; RESP 18; TEMP 36.3; O2SAT 99
[2024-03-13 13:05] LABS: Anion Gap 10 (5-15); BUN 6 mg/dL (7-18); BUN/Creat Ratio 8.2 RATIO (10-20); Calcium,Total 9.3 mg/dL (8.5-10.1); Chloride 89 mmol/L (98-107); Creatinine, Serum 0.73 mg/dL (0.55-1.02); EST Glomerular Filtration Rate 82 mL/min (>60); Est Glom Filt Rate - Afr Amer 99 mL/min (>60); Estimated Creatinine Clearance 44.92 ml/min; Glucose 105 mg/dL (74-106); Potassium 3.5 mmol/L (3.5-5.1); Sodium Level 124 mmol/L (136-145)
--- NOTE | 2024-03-13 13:37 | PN_ITS ---
Subjective Subjective Patient seen and examined. She feels well today and has no complaints. She had an uneventful night and review of systems otherwise negative. Sodium is down to 124. Review of systems otherwise negative. GI is on board and she is for EGD. It was to be done today but will now be done tomorrow because she ate this morning. Objective Data Objective Data Vital Signs: Vital Signs Temp Pulse Resp BP Pulse Ox O2 Del Method 97.4 F L 83 18 148/80 H 99 Room Air 03/13/24 10:06 03/13/24 10:06 03/13/24 10:06 03/13/24 10:06 03/13/24 10:06 03/13/24 10:06 Oxygen Delivery Method Room Air Weight: 124 lb 8.979 oz Body Mass Index (BMI) 24.3 Intake & Output: Intake and Output for Last 24 Hours 03/11/24 03/12/24 03/13/24 23:59 23:59 23:59 Intake Total 666.5 / 666.5 3560 / 3860 650 / 650 Output Total 220 / 220 Balance 446.5 / 446.5 3560 / 3860 650 / 650 Lab / Micro Data 03/13/24 04:25 03/13/24 12:28 Labs: Laboratory Results - last 24 hr 03/12/24 05:14: Vitamin B12 > 2000 H, Folate 26.50, Cortisol 22.00 03/12/24 16:34: Sodium 124 L, Potassium 3.7, Chloride 91 L, Carbon Dioxide 22.0, Anion Gap 11, BUN 7, Creatinine 0.62, Estim Creat Clear Calc 40.96, Est GFR (MDRD) Af Amer 119, Est GFR (MDRD) Non-Af 99, BUN/Creatinine Ratio 11.3, Glucose 110 H, Calcium 8.6 03/12/24 20:05: Sodium 125 L, Potassium 3.5, Chloride 92 L, Carbon Dioxide 22.0, Anion Gap 11, BUN 8, Creatinine 0.56, Estim Creat Clear Calc 40.96, Est GFR (MDRD) Af Amer 133, Est GFR (MDRD) Non-Af 110, BUN/Creatinine Ratio 14.2, Glucose 95, Calcium 8.6 03/13/24 00:30: Sodium 126 L, Potassium 3.7, Chloride 93 L, Carbon Dioxide 24.0, Anion Gap 9, BUN 8, Creatinine 0.63, Estim Creat Clear Calc 40.96, Est GFR (MDRD) Af Amer 118, Est GFR (MDRD) Non-Af 98, BUN/Creatinine Ratio 12.8, Glucose 96, Calcium 8.8 03/13/24 04:25: WBC 4.6, RBC 3.13 L, Hgb 8.8 L, Hct 26.1 L, MCV 83.4, MCH 28.1, MCHC 33.7, RDW Std Deviation 45.3 H, RDW Coeff of [place] 15.1 H, Plt Count 197, MPV 8.4, Immature Gran % (Auto) 0.400, Neut % (Auto) 65.4, Lymph % (Auto) 22.0, [place] % (Auto) 10.9 H, Eos % (Auto) 1.1, Baso % (Auto) 0.2, Absolute Neuts (auto) 3.0, Absolute Lymphs (auto) 1.01, Nucleated RBC % 0, Sodium 125 L, Potassium 3.5, C hloride 93 L, Carbon Dioxide 24.0, Anion Gap 8, BUN 8, Creatinine 0.56, Estim Creat Clear Calc 44.92, Est GFR (MDRD) Af Amer 134, Est GFR (MDRD) Non-Af 111, BUN/Creatinine Ratio 14.3, Glucose 97, Calcium 8.2 L 03/13/24 08:21: Sodium 126 L, Potassium 3.5, Chloride 92 L, Carbon Dioxide 23.0, Anion Gap 11, BUN 7, Creatinine 0.59, Estim Creat Clear Calc 44.92, Est GFR (MDRD) Af Amer 127, Est GFR (MDRD) Non-Af 105, BUN/Creatinine Ratio 11.9, Glucose 98, Calcium 8.8 03/13/24 12:28: Sodium 124 L, Potassium 3.5, Chloride 89 L, Carbon Dioxide 25.0, Anion Gap 10, BUN 6 L, Creatinine 0.73, Estim Creat Clear Calc 44.92, Est GFR (MDRD) Af Amer 99, Est GFR (MDRD) Non-Af 82, BUN/Creatinine Ratio 8.2 L, Glucose 105, Calcium 9.3 Rhythm Strip Rhythm Strip: Sinus Rhythm Rate: 80 Ectopy: None Physical Exam Const alert, oriented x3, no apparent distress, average body habitus, healthy appearing and well nourished General Appearance: cooperative and well developed HEENT normocephalic, head/scalp atraumatic, hearing grossly normal bilaterally and moist oral mucous membranes Eyes PERRL and EOMs intact bilaterally Neck no lymphadenopathy, supple and no JVD Lymph Lymphatic: no lymphadenopathy noted and no lymphedema noted Resp normal respiratory effort, normal air movement, no retractions, no use of accessory muscles and clear to auscultation bilaterally Cardio regular rate, regular rhythm, S1 normal heart sound, S2 normal heart sound, no murmurs, no rub, no gallops and no clicks GI normal to inspection, nondistended, normoactive bowel sounds, soft to palpation, non-tender and non-distended Extremity normal capillary refill, no clubbing, cyanosis or edema and no calf tenderness Extremity Narrative: 2+ pedal pulses General Extremity: no tenderness to palpation of joints or extremities Skin General Skin Exam: no breakdown Neuro oriented x3, CN's II-XII intact bilaterally, moves all extremities, no focal motor deficits, no sensory deficits noted and deep tendon reflexes 2+ bilaterally Speech: speech normal Motor Exam: strength 5/5 throughout and general weakness Psych thought process normal, cooperative and affect normal Appearance: appropriate Assessment & Plan Assessment/Plan (1) Acute hyponatremia: (2) Generalized weakness: PLAN: Plan #Acute hyponatremia * Likely due to decreased solute intake. She was also taking hydrochlorothiazide. * Hydrochlorothiazide currently on hold. Sodium was 121 on admission and is only 122 today. * sodium has been refractory to IVF NS adminsitration * serum osmolality is low at 252. Urine osmolality is however elevated, with urine sodium also elevated at 62. * Will place on fluid restriction and consult nephrology * #UTI: * Urinalysis showed 4+ bacteria with positive nitrites. * Will start on IV ceftriaxone and get urine cultures. * #Debility and weakness * likely due to dehydration and hyponatremia * PT OT on board. Fall precautions. #Dysphagia * Speech has been having difficulty eating. She denies that is difficult to swallow but says she just does not feel like eating. She did see GI on 03/11/2024 and a KUB was ordered. Differential diagnosis included constipation gastroparesis per GI. * GI did see her and she is to have EGD for dilation of her esophagus tomorrow. * #Hypokalemia and hypomagnesemia: Will replace aggressively and trend #Benign essential hypertension: On lisinopril and amlodipine. Hydrochlorothiazide on hold due to hyponatremia. IV hydralazine as needed #GERD: On PPI DVT prophylaxis: Lovenox Charges/Coding Visit Charges Inpatient E&M: 78253 Subs Hosp L2
[2024-03-13 15:00] VITALS: BP 134/86; PULSE 87; RESP 18; TEMP 36.9; O2SAT 100
[2024-03-13] MEDS: Ceftriaxone 1 GM/50 ML BAG IV (15:10)
[2024-03-13 16:41] LABS: Anion Gap 12 (5-15); BUN 6 mg/dL (7-18); BUN/Creat Ratio 10.1 RATIO (10-20); Chloride 91 mmol/L (98-107); Creatinine, Serum 0.59 mg/dL (0.55-1.02); EST Glomerular Filtration Rate 104 mL/min (>60); Est Glom Filt Rate - Afr Amer 126 mL/min (>60); Estimated Creatinine Clearance 44.92 ml/min; Glucose 103 mg/dL (74-106); Potassium 3.7 mmol/L (3.5-5.1); Sodium Level 126 mmol/L (136-145)
--- NOTE | 2024-03-13 17:26 | EX.PCM.PN.GI ---
Subjective Subjective Patient's hemoglobin was noted to go down today. Objective Data Objective Data Vital Signs: Vital Signs Temp Pulse Resp BP Pulse Ox O2 Del Method 98.4 F 87 18 134/86 H 100 Room Air 03/13/24 15:00 03/13/24 15:00 03/13/24 15:00 03/13/24 15:00 03/13/24 15:00 03/13/24 15:00 Oxygen Delivery Method Room Air Weight: 124 lb 8.979 oz Body Mass Index (BMI) 24.3 Intake & Output: Intake and Output for Last 24 Hours 03/11/24 03/12/24 03/13/24 23:59 23:59 23:59 Intake Total 666.5 / 666.5 3560 / 3860 700 / 700 Output Total 220 / 220 Balance 446.5 / 446.5 3560 / 3860 700 / 700 Lab / Micro Data 03/13/24 04:25 03/13/24 16:09 Labs: Laboratory Results - last 24 hr 03/12/24 05:14: Vitamin B12 > 2000 H, Folate 26.50, Cortisol 22.00 03/12/24 20:05: Sodium 125 L, Potassium 3.5, Chloride 92 L, Carbon Dioxide 22.0, Anion Gap 11, BUN 8, Creatinine 0.56, Estim Creat Clear Calc 40.96, Est GFR (MDRD) Af Amer 133, Est GFR (MDRD) Non-Af 110, BUN/Creatinine Ratio 14.2, Glucose 95, Calcium 8.6 03/13/24 00:30: Sodium 126 L, Potassium 3.7, Chloride 93 L, Carbon Dioxide 24.0, Anion Gap 9, BUN 8, Creatinine 0.63, Estim Creat Clear Calc 40.96, Est GFR (MDRD) Af Amer 118, Est GFR (MDRD) Non-Af 98, BUN/Creatinine Ratio 12.8, Glucose 96, Calcium 8.8 03/13/24 04:25: WBC 4.6, RBC 3.13 L, Hgb 8.8 L, Hct 26.1 L, MCV 83.4, MCH 28.1, MCHC 33.7, RDW Std Deviation 45.3 H, RDW Coeff of [place] 15.1 H, Plt Count 197, MPV 8.4, Immature Gran % (Auto) 0.400, Neut % (Auto) 65.4, Lymph % (Auto) 22.0, [place] % (Auto) 10.9 H, Eos % (Auto) 1.1, Baso % (Auto) 0.2, Absolute Neuts (auto) 3.0, Absolute Lymphs (auto) 1.01, Nucleated RBC % 0, Sodium 125 L, Potassium 3.5, Chloride 93 L, Carbon Dioxide 24.0, Anion Gap 8, BUN 8, Creatinine 0.56, Estim Creat Clear Calc 44.92, Est GFR (MDRD) Af Amer 134, Est GFR (MDRD) Non-Af 111, BUN/Creatinine Ratio 14.3, Glucose 97, Calcium 8.2 L 03/13/24 08:21: Sodium 126 L, Potassium 3.5, Chloride 92 L, Carbon Dioxide 23.0, Anion Gap 11, BUN 7, Creatinine 0.59, Estim Creat Clear Calc 44.92, Est GFR (MDRD) Af Amer 127, Est GFR (MDRD) Non-Af 105, BUN/Creatinine Ratio 11.9, Glucose 98, Calcium 8.8 03/13/24 12:28: Sodium 124 L, Potassium 3.5, Chloride 89 L, Carbon Dioxide 25.0, Anion Gap 10, BUN 6 L, Creatinine 0.73, Estim Creat Clear Calc 44.92, Est GFR (MDRD) Af Amer 99, Est GFR (MDRD) Non-Af 82, BUN/Creatinine Ratio 8.2 L, Glucose 105, Calcium 9.3 03/13/24 16:09: Sodium 126 L, Potassium 3.7, Chloride 91 L, Carbon Dioxide 23.0, Anion Gap 12, BUN 6 L, Creatinine 0.59, Estim Creat Clear Calc 44.92, Est GFR (MDRD) Af Amer 126, Est GFR (MDRD) Non-Af 104, BUN/Creatinine Ratio 10.1, Glucose 103, Calcium 9.0 Rhythm Strip Rhythm Strip: Sinus Rhythm Rate: 80 Ectopy: None Physical Exam Const alert, oriented x3, no apparent distress, average body habitus, healthy appearing and well nourished General Appearance: cooperative and well developed HEENT normocephalic, head/scalp atraumatic, hearing grossly normal bilaterally and moist oral mucous membranes Eyes PERRL and EOMs intact bilaterally Neck no lymphadenopathy, supple and no JVD Lymph Lymphatic: no lymphadenopathy noted and no lymphedema noted Resp normal respiratory effort, normal air movement, no retractions, no use of accessory muscles and clear to auscultation bilaterally Cardio regular rate, regular rhythm, S1 normal heart sound, S2 normal heart sound, no murmurs, no rub, no gallops and no clicks GI normal to inspection, nondistended, normoactive bowel sounds, soft to palpation, non-tender and non-distended Extremity normal capillary refill, no clubbing, cyanosis or edema and no calf tenderness Extremity Narrative: 2+ pedal pulses General Extremity: no tenderness to palpation of joints or extremities Skin General Skin Exam: no breakdown Neuro oriented x3, CN's II-XII intact bilaterally, moves all extremities, no focal motor deficits, no sensory deficits noted and deep tendon reflexes 2+ bilaterally Speech: speech normal Motor Exam: strength 5/5 throughout and general weakness Psych thought process normal, cooperative and affect normal Appearance: appropriate Assessment & Plan Assessment/Plan (1) Hypomagnesemia: (2) Hypokalemia: (3) Generalized weakness: (4) Constipation: PLAN: Plan 78-year-old very pleasant woman with weight loss, lethargy and determined to have severe hyponatremia possibly secondary to medications and very poor appetite. Poor appetite/early satiety/esophageal dysphagia -Suspect malnutrition -Start Ensure -I am unsure why she has lack of appetite. She does suffer from severe gastritis and could be at risk for autoimmune gastritis with low B12, folic acid. She also could be experiencing lack of appetite secondary to relative adrenal insufficiency. 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 I did not dilate her esophagus in September. That might need to be done while she is inpatient. -I will check an a.m. cortisol, ESR, CRP, antiparietal cell antibody, gastrin level, chromogranin A, antiintrinsic factor antibody, B12, folic acid and celiac disease profile. -Continue protein supplementation -Her BMI is still 22 which is not not severely malnourished at this time 03/13/2024-n.p.o. past midnight for upper endoscopy tomorrow and possible esophageal dilation. Charges/Coding Visit Charges Inpatient E&M: 65083 Subs Hosp L3
[2024-03-13] MEDS: Ensure Plus High Protein 120 ML LIQUID PO (19:46)
[2024-03-13 20:29] LABS: Anion Gap 13 (5-15); BUN 6 mg/dL (7-18); BUN/Creat Ratio 9.8 RATIO (10-20); Calcium,Total 9.2 mg/dL (8.5-10.1); Chloride 91 mmol/L (98-107); Creatinine, Serum 0.61 mg/dL (0.55-1.02); EST Glomerular Filtration Rate 100 mL/min (>60); Est Glom Filt Rate - Afr Amer 121 mL/min (>60); Estimated Creatinine Clearance 44.92 ml/min; Glucose 111 mg/dL (74-106); Potassium 3.6 mmol/L (3.5-5.1); Sodium Level 124 mmol/L (136-145)
[2024-03-13] MEDS: Pantoprazole Sodium 40 MG Tablet PO (20:29)
[2024-03-13 20:37] VITALS: BP 131/61; PULSE 99; RESP 18; TEMP 36.8; O2SAT 98
[2024-03-14] VITALS (13 sets, daily range): BP systolic 130–147; BP diastolic 63–90; PULSE 82–108; RESP 12–18; TEMP 36.1–36.8; O2SAT 94–100; BMI 24.2
--- NOTE | 2024-03-14 05:55 | EKG12_ITS ---
Test Reason : MORNING EKG Blood Pressure : / mmHG Vent. Rate : 088 BPM Atrial Rate : 088 BPM P-R Int : 164 ms QRS Dur : 072 ms QT Int : 328 ms P-R-T Axes : 035 -66 038 degrees QTc Int : 396 ms Normal sinus rhythm Left axis deviation Pulmonary disease pattern Abnormal ECG When compared with ECG of 11-MAR-2024 15:37, MANUAL COMPARISON REQUIRED, DATA IS UNCONFIRMED Confirmed by Hasmukh Robertson ([id number]), scientific publications editor EFRAIN DIOR ([id number]) on 03/18/2024 10:51:07 AM Referred By: Confirmed By:Hasmukh Robertson
[2024-03-14 06:49] LABS: Absolute Lymphocyte Count 1.05 X10^3/uL (0.83-4.51); Absolute Neutrophil Count 4.8 X10^3/uL (2.0-7.7); Basophil# 0.03 X10^3/uL; Basophil% 0.5 % (0-1); Eosinophil# 0.06 X10^3/uL; Eosinophils% 0.9 % (0-5); Hematocrit 28.2 % (37-47); Hemoglobin 9.6 g/dL (12.0-15.0); Lymphocyte # 1.05 X10^3/ul (0.83-4.51); Lymphocyte % 16.3 % (19-41); Mean Corpuscular Hgb 27.8 pg (27.0-32.0); Mean Corpuscular Volume 81.7 fL (81-99); Mean Platelet Vol. 9.6 fl (6.2-12.0); Monocyte% 7.7 % (0-10); NRBC Flagged by Analyzer 0 % (0-5); Neutrophil # 4.76 X10^3/uL (2.7-7.7); Neutrophil % 73.7 % (47-70); POSITIVE COUNT YES; Platelet Count 196 K/mm3 (150-450); RBC Distribution Width CV 15.2 % (11.6-14.6); Red Blood Count 3.45 M/mm3 (4.2-5.4); White Blood Count 6.5 K/mm3 (4.4-11.0)
[2024-03-14 07:16] LABS: Anion Gap 9 (5-15); BUN 7 mg/dL (7-18); Calcium,Total 9.1 mg/dL (8.5-10.1); Chloride 93 mmol/L (98-107); Creatinine, Serum 0.64 mg/dL (0.55-1.02); EST Glomerular Filtration Rate 95 mL/min (>60); Est Glom Filt Rate - Afr Amer 115 mL/min (>60); Estimated Creatinine Clearance 44.85 ml/min; Glucose 94 mg/dL (74-106); Potassium 4.3 mmol/L (3.5-5.1); Sodium Level 124 mmol/L (136-145)
[2024-03-14 07:18] LABS: Differential Indicated SCAN CRITERIA MET
[2024-03-14] MEDS: Lactated Ringers 1,000 ML 15 ML IV (07:52)
--- NOTE | 2024-03-14 07:55 | PCM.PRE.AN2 ---
ASA Classification* ASA Classification ASA Classification: 2 Assessment & Plan Anesthesia* Anesthesia Assessment Anesthesia Assessment: Discussed sedation and/or anesthesia options, risks, benefits, and alternatives with patient/parents/legal guardian/POA. Questions invited. The patient/parents/legal guardian/POA seems to understand and agrees to proceed with anesthesia plan. Reviewed the physical assessment, medical history, allergy history and patient home medications list prior to surgery/procedure/anesthetic and documented any changes. Performed airway and anesthesia risk assessments. Anesthesia Type Anesthesia Type: MAC (see written pre anesthesia record for full assessment) Anesthesia Focused Assessment* Temperature: 96.9 F Pulse Rate: 87 Blood Pressure: 133/72 Respiratory Rate: 18 Pulse Ox: 97 Airway Assessment Mouth opens: >3 cm Mallampati Score: II Focused Labs Anesthesia Preop lab: CBC WBC 6.5 K/mm3 (4.4-11.0) 03/14/24 05:37 RBC 3.45 M/mm3 (4.2-5.4) L 03/14/24 05:37 Hgb 9.6 g/dL (12.0-15.0) L 03/14/24 05:37 Hct 28.2 % (37-47) L 03/14/24 05:37 Plt Count 196 K/mm3 (150-450) 03/14/24 05:37 CHEMISTRY Potassium 4.3 mmol/L (3.5-5.1) 03/14/24 05:37 Sodium 124 mmol/L (136-145) L 03/14/24 05:37 Magnesium 1.9 mg/dL (1.6-2.6) 03/12/24 05:14 Phosphorus 1.5 mg/dL (2.5-4.9) L 03/12/24 05:14 BUN 7 mg/dL (7-18) 03/14/24 05:37 Creatinine 0.64 mg/dL (0.55-1.02) 03/14/24 05:37 Glucose 94 mg/dL (74-106) 03/14/24 05:37 TSH 2.210 uIU/mL (0.358-3.740) 03/11/24 15:37 COAG Pre-Assessment Diagnosis/Proposed Procedure Planned Operative Procedure(s): egd Anesthesia History 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 When Was Last Pacemaker Check QUESTION #4 FULL TEXT: You/Your Family Experience fever (hyperthermia) with Anesthesia Last Oral Intake Last Oral intake: Last Oral Intake NPO since 00:00 03/14/24 03:19 Meds taken in AM with sips of Yes 03/14/24 03:19 water? Meds patient instructed to take am of surgery PONV PONV - crystallizer operator: PONV - crystallizer operator Female HX of Motion Sickness HX of N/V After Surgery Non-Smoker Duration of Surgery greater than 60 minutes Number of Risk Factors PONV Score Height & Weight Height & Weight: Anesthesia: Height & Weight Height 5 ft 03/14/24 03:19 Weight: 56.3 kg 03/14/24 03:19 Body Mass Index (BMI) 24.2 03/14/24 03:19 Respiratory Assessment Respiratory Assessment - crystallizer operator: Respiratory Tract Infection Hx - crystallizer operator Hx Respiratory Tract Infection No 03/14/24 03:19 STOP Sleep Apnea STOP Sleep Apnea - crystallizer operator: STOP Sleep Apnea - crystallizer operator Hx Hypertension Yes 03/12/24 11:57 Hx Sleep Apnea No 03/11/24 18:34 CPAP BIPAP Do you snore loudly (louder No 03/11/24 18:34 than talking or can be heard Do you often feel tired/ No 03/11/24 18:34 fatigued/ sleepy during daytime? Has anyone observed you stop No 03/11/24 18:34 breathing during sleep? STOP Results Negative 03/11/24 18:34 QUESTION #5 FULL TEXT : Do you snore loudly (louder than talking or can be heard through closed doors)? 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 Specify any problems Hx of Preganancy in last 3 No 03/11/24 18:34 Months Nurse Filling Out Transfusion JTURCHYN 03/11/24 18:34 & Questions: Date: 03/11/24 03/11/24 18:34 Time: 18:44 03/11/24 18:34 Patient unable to answer at this time (ie. confused, unrespo /Reproduction History /Reproductive History - crystallizer operator: /Reproductive Hx- crystallizer operator Hx Now No 03/14/24 03:19 Gestational Age (in weeks): EDC: Hx Hx Para Hx Section SAB No 03/14/24 03:19 Active Medications Active Medications: Current Medications Generic Name Dose Route Start Last Admin Trade Name Freq PRN Reason Stop Dose Admin Acetaminophen 650 mg 03/11/24 18:32 03/13/24 01:55 Acetaminophen 325 Mg Tablet PO 650 mg Q6H PRN PRN Administration Pain 1-10 Or Fever>100.7 Albuterol Sulfate 2.5 mg 03/11/24 18:32 Albuterol 2.5 Mg/3 Ml Vial.Neb. INHALATION Q2H PRN PRN SOB &/OR WHEEZING Amlodipine Besylate 5 mg 03/12/24 10:00 03/13/24 08:56 Amlodipine 5 Mg Tablet PO 5 mg DAILY EUSEBIO Administration Protocol Hydralazine HCl 10 mg 03/11/24 18:32 Hydralazine 20 Mg/Ml Vial IV Q6H PRN PRN SBP>160 Protocol Ceftriaxone Sodium 1 gm in 50 mls @ 100 mls/hr 03/13/24 13:45 03/13/24 16:04 Rocephin IV Infused Q24 EUSEBIO Infusion Lactated Ringer's 1,000 mls @ 15 mls/hr 03/14/24 08:00 03/14/24 07:52 IV 15 mls/hr .Q48H EUSEBIO Administration Influenza Virus Vaccine 180 mcg 03/14/24 10:00 Flu Vaccine High Dose Tv 24-25 180 Mcg/0.5 Ml Syringe IM 03/14/24 10:01 .ONCE ONE Levothyroxine Sodium 50 mcg 03/12/24 06:00 03/14/24 06:07 Levothyroxine 50 Mcg Tablet PO Not Given DAILY@0600 EUSEBIO Lisinopril 30 mg 03/12/24 10:00 03/13/24 08:56 Lisinopril 10 Mg Tablet PO 30 mg DAILY EUSEBIO Administration Melatonin 3 mg 03/11/24 18:32 03/11/24 23:00 Melatonin 3 Mg Tablet PO 3 mg QHS PRN PRN Administration INSOMNIA Nutritional Formula (Lactose Free) 120 ml 03/11/24 22:00 03/13/24 20:30 Ensure Plus High Protein 120 Ml Liquid PO Not Given 4X/DAY EUSEBIO Ondansetron HCl 4 mg 03/11/24 18:32 Ondansetron 4 Mg/2 Ml Vial IV Q8H PRN PRN NAUSEA/VOMITING Pantoprazole Sodium 40 mg 03/11/24 22:00 03/13/24 20:29 Pantoprazole Sodium 40 Mg Tablet PO 40 mg BID EUSEBIO Administration Polyethylene Glycol 17 gm 03/11/24 22:00 03/13/24 20:27 Polyethylene Glycol 3350 17 Gm Packet PO Not Given BID EUSEBIO Potassium Phos/Sodium Phos 1 packet 03/12/24 13:15 03/13/24 20:28 Na Biphos/Potassium Phosphate Packet PO Not Given BID EUSEBIO Senna/Docusate Sodium 2 tablet 03/11/24 18:32 Senna/Docusate Sodium 1 Tablet PO BID PRN PRN Constipation Sodium Chloride 10 - 40 ml 03/11/24 18:47 03/11/24 20:23 0.9% Saline Lock 10 Ml Syringe IV 10 ml UD PRN Administration SALINE FLUSH PFSH Medical History Nausea & vomiting History of pain when walking Wears partial dentures Wears glasses Post-menopausal Anxiety Thyroid disease Arthritis Anemia Easy bruising Back pain Migraine headache History of hiatal hernia History of ulceration History of diverticulitis Gastric reflux Depression Osteoporosis Hypertension Vertigo Chronic kidney disease, stage 3a Gastric ulcer Abdominal pain Home Medications ?Medication ?Instructions ?Recorded ?Last Taken ?Type hydrochlorothiazide 25 mg tablet 25 mg PO DAILY 11/23/21 03/10/24 History omeprazole 40 mg capsule,delayed 40 mg PO BID #180 caps 02/06/23 03/10/24 Rx release amlodipine 5 mg tablet 5 mg PO QDAY 03/11/24 03/10/24 History levothyroxine 50 mcg tablet 50 mcg PO DAILY 03/11/24 03/09/24 History (Synthroid) lisinopril 30 mg tablet 30 mg PO DAILY 03/11/24 03/10/24 History ondansetron 4 mg disintegrating 4 mg PO Q8H #20 tabs 03/11/24 Unknown Rx tablet Allergy/AdvReac Type Severity Reaction Status Date / Time No Known Allergies Allergy Verified 03/11/24 14:41 Surgical History History of esophagogastroduodenoscopy (EGD) Hx of hernia repair Hx of inguinal hernia repair Hx laparoscopic cholecystectomy Hx of hysterectomy Social History household members: none housing: house Smoking Status: Never smoker alcohol intake: never substance use type: does not use Review of Systems (Anesthesia) ROS Narrative System reviewed and no additional complaints, except as documented.
--- NOTE | 2024-03-14 08:49 | OP.EGD_ITS ---
Patient Name: Merline Diaz Procedure Date: 03/14/2024 8:20 AM Date of : 1945 Age: 78 Procedure: Upper GI endoscopy Indications: Iron deficiency anemia, Suspected upper gastrointestinal bleeding Providers: Kanu Maya DO Medicines: Monitored Anesthesia Care Patient Profile: This is a 78 year old female. Refer to note in patient chart for documentation of history and physical. Patient has symptoms of chronic dysphagia and chronic dyspepsia. Complications: No immediate complications. Procedure: Pre-Anesthesia Assessment: - Prior to the procedure, a History and Physical was performed, and patient medications and allergies were reviewed. The patient is competent. The risks and benefits of the procedure and the sedation options and risks were discussed with the patient. All questions were answered and informed consent was obtained. Patient identification and proposed procedure were verified by the physician in the pre-procedure area. Mental Status Examination: alert and oriented. Airway Examination: normal oropharyngeal airway and neck mobility. Respiratory Examination: clear to auscultation. CV Examination: normal. Prophylactic Antibiotics: The patient does not require prophylactic antibiotics. Prior Anticoagulants: The patient has taken no anticoagulant or antiplatelet agents except for NSAID medication. ASA Grade Assessment: II - A patient with mild systemic disease. After reviewing the risks and benefits, the patient was deemed in satisfactory condition to undergo the procedure. The anesthesia plan was to use monitored anesthesia care (MAC). Immediately prior to administration of medications, the patient was re-assessed for adequacy to receive sedatives. The heart rate, respiratory rate, oxygen saturations, blood pressure, adequacy of pulmonary ventilation, and response to care were monitored throughout the procedure. The physical status of the patient was re-assessed after the procedure. After obtaining informed consent, the endoscope was passed under direct vision. Throughout the procedure, the patient's blood pressure, pulse, and oxygen saturations were monitored continuously. The Endoscope was introduced through the mouth, and advanced to the second part of duodenum. The upper GI endoscopy was accomplished without difficulty. The patient tolerated the procedure well. Scope In: 8:35:46 AM Scope Out: 8:42:26 AM Total Procedure Duration Time 0 hours 6 minutes 40 seconds Findings: There were esophageal mucosal changes secondary to established short-segment Lechuga's disease present in the lower third of the esophagus. The maximum longitudinal extent of these mucosal changes was 3 cm in length. A 8 mm bleeding Steffanie-Matt tear was found. Coagulation for hemostasis using heater probe was successful. Estimated blood loss was minimal. A medium-sized hiatal hernia was present. Red blood was found at the pylorus. One oozing linear gastric ulcer with pigmented material was found at the pylorus. The lesion was 5 mm in largest dimension. Coagulation for hemostasis using heater probe was successful. Estimated blood loss was minimal. No gross lesions were noted in the first portion of the duodenum. Impression: - Esophageal mucosal changes secondary to established short-segment Lechuga's disease. - Steffanie-Matt tear. Treated with a heater probe. - Medium-sized hiatal hernia. - Red blood in the pylorus. - Oozing gastric ulcer with pigmented material. Treated with a heater probe. - No gross lesions in the first portion of the duodenum. - No specimens collected. Recommendation: - Discharge patient to home. - Resume previous diet. - Continue present medications. - Full liquid diet today. - Continue present medications. Procedure Code(s): --- Professional --- 16390, Esophagogastroduodenoscopy, flexible, transoral; with control of bleeding, any method CPT copyright 2021 [employer]. All rights reserved. The codes documented in this report are preliminary and upon fire protection engineer review may be revised to meet current compliance requirements. Kanu Maya DO 03/14/2024 8:49:37 AM This report has been signed electronically. Number of Addenda: 0 Note Initiated On: 03/14/2024 8:20 AM
--- NOTE | 2024-03-14 08:50 | OP.CCLET_ITS ---
03/14/2024 Dejuan Selby [address] [place] [address] [place] [address] Re : Upper GI endoscopy procedure for Merline Natarajancristal Dear Dr. Selby This procedure was performed on February. My impressions and recommendations are as follows: Impressions : - Esophageal mucosal changes secondary to established short-segment Lechuga's disease. - Steffanie-Matt tear. Treated with a heater probe. - Medium-sized hiatal hernia. - Red blood in the pylorus. - Oozing gastric ulcer with pigmented material. Treated with a heater probe. - No gross lesions in the first portion of the duodenum. - No specimens collected. Recommendations : - Discharge patient to home. - Resume previous diet. - Continue present medications. - Full liquid diet today. - Continue present medications. My findings are described in the full procedure note, which is enclosed. If I can be of further assistance, please feel free to contact me at . Sincerely, Kanu Maya, 03/14/2024 8:49:37 AM This report has been signed electronically.
--- NOTE | 2024-03-14 08:51 | PCM.POST.ANE ---
Anesthesia: Postop Eval I Current Vital Signs Temperature: 98.2 F Pulse Rate: 107 Blood Pressure: 130/78 Respiratory Rate: 16 Pulse Ox: 99 Oxygen Delivery Method: Room Air Assessment Airway patent: Yes Spontaneous unlabored respirations: Yes Mental status: Awake and Calm nausea: No Vomiting: No Anesthesia Complication: No Fluid Hydration Crystalloid volume administer (ml): 200 Total IV fluid infused: 200 Progress Note Anesthesia document: Postop Eval 1 completed: Yes
--- NOTE | 2024-03-14 09:03 | PCM.POSTANE2 ---
Anesthesia Postop Eval I Sum Postop Eval Completion status Anesthesia document: Postop Eval 1 completed: Yes Anesthesia Postop Eval I Summary Anesthesia Postop Eval I Summary: Anesthesia Postop Eval I: Assessment Summary Airway patent Yes 03/14/24 08:52 [email or web address] Spontaneous unlabored Yes 03/14/24 08:52 [email or web address] respirations Mental status Awake,Calm 03/14/24 08:52 [email or web address] nausea No 03/14/24 08:52 [email or web address] Vomiting No 03/14/24 08:52 [email or web address] Anesthesia Postop Eval I: Fluid Summary Crystalloid volume administer 200 03/14/24 08:52 [email or web address] (ml) Colloids volume administered ( ml) Blood Product volume administered (ml) Total IV fluid infused 200 03/14/24 08:52 [email or web address] Anesthesia Postop Eval I: Summary Notes Anesthesia Complication No 03/14/24 08:52 [email or web address] Anesthesia Complication Comment: Post-operative progress note Anesthesia: Postop Eval II Evaluation Mental status: Awake Pain Level: 0 nausea: No Vomiting: No
[2024-03-14] MEDS: Sodium Chloride 1 GM Tablet PO ×2 (10:30→14:37)
[2024-03-14] MEDS: Na Biphos/Potassium Phosphate PACKET 1 PACKET PO ×2 (10:32→20:45)
[2024-03-14] MEDS: amLODIPine 5 MG Tablet PO (10:33)
[2024-03-14] MEDS: Pantoprazole Sodium 40 MG Tablet PO ×2 (10:33→20:45)
[2024-03-14] MEDS: Lisinopril 10 MG Tablet 30 MG PO (10:34)
[2024-03-14] MEDS: Ensure Plus High Protein 120 ML LIQUID PO ×3 (10:40→21:22)
[2024-03-14] MEDS: 0.9% Saline Lock 10 ML Syringe IV ×2 (11:20→12:20)
[2024-03-14] MEDS: Ceftriaxone 1 GM/50 ML BAG IV (11:20)
--- NOTE | 2024-03-14 11:28 | PN_ITS ---
Subjective Subjective Patient seen and examined. Her daughter was by her bedside. She had no active complaints and felt well. Sodium still remains low at 124. She had EGD today. Review of systems is otherwise negative. Objective Data Objective Data Vital Signs: Vital Signs Temp Pulse Resp BP Pulse Ox O2 Del Method 97.5 F L 82 18 147/70 H 100 Room Air 03/14/24 09:27 03/14/24 09:27 03/14/24 09:27 03/14/24 09:27 03/14/24 09:27 03/14/24 10:00 Oxygen Delivery Method Room Air Weight: 124 lb 1.924 oz Body Mass Index (BMI) 24.2 Intake & Output: Intake and Output for Last 24 Hours 03/12/24 03/13/24 03/14/24 23:59 23:59 23:59 Intake Total 3560 / 3860 1000 / 1240 240 / 240 Balance 3560 / 3860 1000 / 1240 240 / 240 Lab / Micro Data 03/14/24 05:37 03/14/24 05:37 Labs: Laboratory Results - last 24 hr 03/13/24 12:28: Sodium 124 L, Potassium 3.5, Chloride 89 L, Carbon Dioxide 25.0, Anion Gap 10, BUN 6 L, Creatinine 0.73, Estim Creat Clear Calc 44.92, Est GFR (MDRD) Af Amer 99, Est GFR (MDRD) Non-Af 82, BUN/Creatinine Ratio 8.2 L, Glucose 105, Calcium 9.3 03/13/24 16:09: Sodium 126 L, Potassium 3.7, Chloride 91 L, Carbon Dioxide 23.0, Anion Gap 12, BUN 6 L, Creatinine 0.59, Estim Creat Clear Calc 44.92, Est GFR (MDRD) Af Amer 126, Est GFR (MDRD) Non-Af 104, BUN/Creatinine Ratio 10.1, Glucose 103, Calcium 9.0 03/13/24 19:49: Sodium 124 L, Potassium 3.6, Chloride 91 L, Carbon Dioxide 20.0 L, Anion Gap 13, BUN 6 L, Creatinine 0.61, Estim Creat Clear Calc 44.92, Est GFR (MDRD) Af Amer 121, Est GFR (MDRD) Non-Af 100, BUN/Creatinine Ratio 9.8 L, G lucose 111 H, Calcium 9.2 03/14/24 05:37: WBC 6.5, RBC 3.45 L, Hgb 9.6 L, Hct 28.2 L, MCV 81.7, MCH 27.8, MCHC 34.0, RDW Std Deviation 45.0 H, RDW Coeff of Catrachita 15.2 H, Plt Count 196, MPV 9.6, Immature Gran % (Auto) 0.900, Neut % (Auto) 73.7 H, Lymph % (Auto) 16.3 L, [place] % (Auto) 7.7, Eos % (Auto) 0.9, Baso % (Auto) 0.5, Absolute Neuts (auto) 4.8, Absolute Lymphs (auto) 1.05, Nucleated RBC % 0, Sodium 124 L, Potassium 4.3, Chloride 93 L, Carbon Dioxide 22.0, Anion Gap 9, BUN 7, Creatinine 0.64, Estim Creat Clear Calc 44.85, Est GFR (MDRD) Af Amer 115, Est GFR (MDRD) Non-Af 95, BUN/Creatinine Ratio 11.0, Glucose 94, Calcium 9.1 Rhythm Strip Rhythm Strip: Sinus Rhythm Rate: 80 Ectopy: None Physical Exam Const alert, oriented x3, no apparent distress, average body habitus, healthy appearing and well nourished General Appearance: cooperative and well developed HEENT normocephalic, head/scalp atraumatic, hearing grossly normal bilaterally and moist oral mucous membranes Eyes PERRL and EOMs intact bilaterally Neck no lymphadenopathy, supple and no JVD Lymph Lymphatic: no lymphadenopathy noted and no lymphedema noted Resp normal respiratory effort, normal air movement, no retractions, no use of accessory muscles and clear to auscultation bilaterally Auscultation: Negative for rales, rhonchi or wheezes Cardio regular rate, regular rhythm, S1 normal heart sound and S2 normal heart sound GI normal to inspection, nondistended, normoactive bowel sounds, soft to palpation, non-tender and non-distended Extremity normal capillary refill, no clubbing, cyanosis or edema and no calf tenderness Extremity Narrative: 2+ pedal pulses General Extremity: no tenderness to palpation of joints or extremities Skin General Skin Exam: no breakdown Neuro oriented x3, CN's II-XII intact bilaterally, moves all extremities, no focal motor deficits, no sensory deficits noted and deep tendon reflexes 2+ bilaterally Speech: speech normal Motor Exam: strength 5/5 throughout and general weakness Psych thought process normal, cooperative and affect normal Appearance: appropriate Assessment & Plan Assessment/Plan (1) Acute hyponatremia: (2) Generalized weakness: PLAN: Plan #Acute hyponatremia * Likely due to decreased solute intake. She was also taking hydrochlorothiazide. * sodium is only 124 today. Was 121 on admission * sodium has been refractory to IVF NS adminsitration * serum osmolality is low at 252. Urine osmolality is however elevated, with urine sodium also elevated at 62, which may be indicative of SIADH. * patient on fluid restriction. Discussed with nephrology, and started on PO sodium chloride 1gram tid. * await nephrology evaluation. * * #UTI: * Urinalysis showed 4+ bacteria with positive nitrites. * on IV ceftriaxone. * Urine cultures pending * #Debility and weakness * likely due to dehydration and hyponatremia * PT OT on board. Fall precautions. #Dysphagia * Speech has been having difficulty eating. She denies that is difficult to swallow but says she just does not feel like eating. She did see GI on 03/11/2024 and a KUB was ordered. Differential diagnosis included constipation gastroparesis per GI. * She had EGD today which showed a hiatal hernia, james Matt tear and an oozing gastric ulcer with pigmented material, red blood in the pylorus and this was treated with a heater probe. * start on PO pantoprazole 40mg bid * #Hypokalemia and hypomagnesemia: resolved. #Benign essential hypertension: * On lisinopril and amlodipine. * Hydrochlorothiazide on hold due to hyponatremia. * IV hydralazine as needed #GERD: On PPI DVT prophylaxis: Lovenox Charges/Coding Visit Charges Inpatient E&M: 56092 Subs Hosp L2
[2024-03-14] MEDS: FLU VACCINE **HIGH DOSE** TV 24-25 180 MCG/0.5 ML SYRINGE IM (12:26)
--- NOTE | 2024-03-14 15:49 | PCM.CONS.R ---
Assessment & Plan Assessment/Plan (1) Acute hyponatremia: PLAN: New onset as per her. Will have to review old records. Urine sodium more than 20, urine osmolality more than 100. 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 She is on hydrochlorothiazide which she has been taking for many years now. Poor appetite, unable to eat much for 2 weeks prior to coming in. Hyponatremia did not respond to IV fluids. Add salt tablets 2 g 3 times daily for today. Discussed with family at bedside HPI Consult Data Date of Consult: 03/14/24 HPI Narrative Reason for Consultation: Hyponatremia HPI Narrative: KAITLYNN TONEY, is a 78 F who presents with generalized weakness, poor appetite for at least 3 weeks prior to admission. Nephrology consulted in view of hyponatremia. No prior history of hyponatremia as per her. Came in with a sodium of 121. Sodium is now around 125 or so. Appetite is fair now. No edema. No recent changes in medication except for 1 blood pressure medication addition about 3 months ago. [facility] Medical History Nausea & vomiting History of pain when walking Wears partial dentures Wears glasses Post-menopausal Anxiety Thyroid disease Arthritis Anemia Easy bruising Back pain Migraine headache History of hiatal hernia History of ulceration History of diverticulitis Gastric reflux Depression Osteoporosis Hypertension Vertigo Chronic kidney disease, stage 3a Gastric ulcer Abdominal pain Home Medications ?Medication ?Instructions ?Recorded ?Last Taken ?Type hydrochlorothiazide 25 mg tablet 25 mg PO DAILY 11/23/21 03/10/24 History omeprazole 40 mg capsule,delayed 40 mg PO BID #180 caps 02/06/23 03/10/24 Rx release amlodipine 5 mg tablet 5 mg PO QDAY 03/11/24 03/10/24 History levothyroxine 50 mcg tablet 50 mcg PO DAILY 03/11/24 03/09/24 History (Synthroid) lisinopril 30 mg tablet 30 mg PO DAILY 03/11/24 03/10/24 History ondansetron 4 mg disintegrating 4 mg PO Q8H #20 tabs 03/11/24 Unknown Rx tablet Allergy/AdvReac Type Severity Reaction Status Date / Time No Known Allergies Allergy Verified 03/11/24 14:41 Surgical History History of esophagogastroduodenoscopy (EGD) Hx of hernia repair Hx of inguinal hernia repair Hx laparoscopic cholecystectomy Hx of hysterectomy Social History household members: none housing: house Smoking Status: Never smoker alcohol intake: never substance use type: does not use ROS ROS Narrative Negative except above Physical Exam Narrative Alert awake oriented x 3 no obvious distress no pallor no icterus no JVD s1s2 no murmurs lungs clear abdomen soft no organomegaly no edema no cyanosis Lab / Micro Data 03/14/24 05:37 03/14/24 05:37 Labs: Laboratory Results - last 24 hr 03/13/24 16:09: Sodium 126 L, Potassium 3.7, Chloride 91 L, Carbon Dioxide 23.0, Anion Gap 12, BUN 6 L, Creatinine 0.59, Estim Creat Clear Calc 44.92, Est GFR (MDRD) Af Amer 126, Est GFR (MDRD) Non-Af 104, BUN/Creatinine Ratio 10.1, Glucose 103, Calcium 9.0 03/13/24 19:49: Sodium 124 L, Potassium 3.6, Chloride 91 L, Carbon Dioxide 20.0 L, Anion Gap 13, BUN 6 L, Creatinine 0.61, Estim Creat Clear Calc 44.92, Est GFR (MDRD) Af Amer 121, Est GFR (MDRD) Non-Af 100, BUN/Creatinine Ratio 9.8 L, Glucose 111 H, Calcium 9.2 03/14/24 05:37: WBC 6.5, RBC 3.45 L, Hgb 9.6 L, Hct 28.2 L, MCV 81.7, MCH 27.8, MCHC 34.0, RDW Std Deviation 45.0 H, RDW Coeff of Catrachita 15.2 H, Plt Count 196, MPV 9.6, Immature Gran % (Auto) 0.900, Neut % (Auto) 73.7 H, Lymph % (Auto) 16.3 L, [place] % (Auto) 7.7, Eos % (Auto) 0.9, Baso % (Auto) 0.5, Absolute Neuts (auto) 4.8, Absolute Lymphs (auto) 1.05, Nucleated RBC % 0, Sodium 124 L, Potassium 4.3, Chloride 93 L, Carbon Dioxide 22.0, Anion Gap 9, BUN 7, Creatinine 0.64, Estim Creat Clear Calc 44.85, Est GFR (MDRD) Af Amer 115, Est GFR (MDRD) Non-Af 95, BUN/Creatinine Ratio 11.0, Glucose 94, Calcium 9.1 Micro: Microbiology 03/13/24 19:00 Urine, Clean Catch Urine Culture - Preliminary Mixed Gram Pos & Gram Neg Org Rhythm Strip Rhythm Strip: Sinus Rhythm Rate: 80 Ectopy: None
[2024-03-14] MEDS: Sodium Chloride 1 GM Tablet 2 GM PO ×2 (16:12→20:46)
[2024-03-15 04:15] VITALS: BP 143/75; PULSE 92; RESP 18; TEMP 36.7; O2SAT 98
[2024-03-15] MEDS: Sodium Chloride 1 GM Tablet 2 GM PO ×2 (04:28→13:41)
[2024-03-15] MEDS: Levothyroxine 50 MCG Tablet PO (04:28)
[2024-03-15 05:33] VITALS: BMI 24.3
[2024-03-15 06:17] LABS: Absolute Lymphocyte Count 0.88 X10^3/uL (0.83-4.51); Absolute Neutrophil Count 2.5 X10^3/uL (2.0-7.7); Basophil# 0.01 X10^3/uL; Basophil% 0.3 % (0-1); Eosinophil# 0.05 X10^3/uL; Eosinophils% 1.3 % (0-5); Hematocrit 29.2 % (37-47); Hemoglobin 9.6 g/dL (12.0-15.0); Lymphocyte # 0.88 X10^3/ul (0.83-4.51); Lymphocyte % 22.2 % (19-41); Mean Corpuscular Hgb 28.5 pg (27.0-32.0); Mean Corpuscular Volume 86.6 fL (81-99); Mean Platelet Vol. 8.5 fl (6.2-12.0); Monocyte% 12.6 % (0-10); NRBC Flagged by Analyzer 0 % (0-5); Neutrophil # 2.52 X10^3/uL (2.7-7.7); Neutrophil % 63.3 % (47-70); Platelet Count 211 K/mm3 (150-450); RBC Distribution Width SD 49.7 fl (35.1-43.9); Red Blood Count 3.37 M/mm3 (4.2-5.4)
[2024-03-15 07:09] LABS: Anion Gap 9 (5-15); BUN 10 mg/dL (7-18); Chloride 101 mmol/L (98-107); Creatinine, Serum 0.62 mg/dL (0.55-1.02); EST Glomerular Filtration Rate 98 mL/min (>60); Est Glom Filt Rate - Afr Amer 119 mL/min (>60); Estimated Creatinine Clearance 44.92 ml/min; Glucose 99 mg/dL (74-106); Potassium 3.9 mmol/L (3.5-5.1); Sodium Level 132 mmol/L (136-145)
[2024-03-15 07:20] LABS: Mean Corp Hgb Conc 32.9 g/dL (32-36)
[2024-03-15 07:21] LABS: RBC Distribution Width CV 15.9 % (11.6-14.6)
[2024-03-15] MEDS: Ceftriaxone 1 GM/50 ML BAG IV (08:57)
[2024-03-15] MEDS: Lisinopril 10 MG Tablet 30 MG PO (09:00)
[2024-03-15] MEDS: Pantoprazole Sodium 40 MG Tablet PO (09:02)
[2024-03-15] MEDS: amLODIPine 5 MG Tablet PO (09:02)
[2024-03-15] MEDS: Na Biphos/Potassium Phosphate PACKET 1 PACKET PO (09:02)
[2024-03-15 10:15] VITALS: BP 141/72; PULSE 89; RESP 16; TEMP 37; O2SAT 99
--- NOTE | 2024-03-15 11:20 | DS.PCM_ITS ---
Providers Date of Admission: 03/11/24 Date of Discharge: 03/15/24 Primary Care Physician: Dr. Dejuan Selby MD Consultations 03/13/24 13:36 Consult: Nephrology Routine Consulting Provider: Eliazar Harrell Reason for Consult: hyponatremia unresponsive to IVF EMERGENT Consult: No Notified: Yes Date Notified: 03/13/24 Time Notified: 13:36 Method of Notification: Text 03/13/24 20:21 Consult: Gastroenterology Routine Consulting Provider: [facility] Reason for Consult: hemoglobin drop, need for EGD EMERGENT Consult: No Notified: Yes Date Notified: 03/13/24 Time Notified: 20:21 Method of Notification: Text Reason For Visit: HYPONATREMIA Diagnosis Discharge Diagnosis (1) Acute hyponatremia: Status: Acute Code(s): E87.1 - Hypo-osmolality and hyponatremia Plan #Acute hyponatremia * Likely due to decreased solute intake. She was also taking hydrochlorothiazide. * sodium is only 124 today. Was 121 on admission * sodium has been refractory to IVF NS adminsitration * serum osmolality is low at 252. Urine osmolality is however elevated, with urine sodium also elevated at 62, which may be indicative of SIADH. * patient on fluid restriction. Discussed with nephrology, and started on PO sodium chloride 1gram tid. * await nephrology evaluation. * * #UTI: * Urinalysis showed 4+ bacteria with positive nitrites. * on IV ceftriaxone. * Urine cultures pending * #Debility and weakness * likely due to dehydration and hyponatremia * PT OT on board. Fall precautions. #Dysphagia * Speech has been having difficulty eating. She denies that is difficult to swallow but says she just does not feel like eating. She did see GI on 03/11/2024 and a KUB was ordered. Differential diagnosis included constipation gastroparesis per GI. * She had EGD today which showed a hiatal hernia, setffanie Matt tear and an oozing gastric ulcer with pigmented material, red blood in the pylorus and this was treated with a heater probe. * start on PO pantoprazole 40mg bid * #Hypokalemia and hypomagnesemia: resolved. #Benign essential hypertension: * On lisinopril and amlodipine. * Hydrochlorothiazide on hold due to hyponatremia. * IV hydralazine as needed #GERD: On PPI DVT prophylaxis: Lovenox Medications at Discharge Home Medications omeprazole 40 mg capsule,delayed release 40 mg PO BID reflux #180 caps 02/06/23 amlodipine 5 mg tablet 5 mg PO QDAY blood pressure 03/11/24 levothyroxine 50 mcg tablet (Synthroid) 50 mcg PO DAILY thyroid 03/11/24 lisinopril 30 mg tablet 30 mg PO DAILY blood pressure 03/11/24 ondansetron 4 mg disintegrating tablet 4 mg PO Q8H nausea #20 tabs 03/11/24 cefdinir 300 mg capsule 300 mg PO BID #10 caps 03/15/24 sodium chloride 1,000 mg soluble tablet 1,000 mg PO TID #90 tabs 03/15/24 Hospital Course Operations None Procedures EGD Summary of Care Provided Minutes Spent on Discharge: 47 Hospital Course: Patient is a 78-year-old female with past medical history as outlined was admitted through the ED on 03/11/2024 with a complaint of generalized weakness. She had been having a hard time eating. She says she had been drinking lots of free water lately but had not been really eating solid foods well. She had had outpatient labs drawn that morning as requested by her illuminating engineer and she was found to be markedly hyponatremic so she was sent to the ED. She was on hydrochlorothiazide and had been taking this at home. Review of systems otherwise negative. Labs done showed sodium of 120 and potassium of 3.1. Creatinine was 1.09. CT of the brain showed no acute intracranial pathology. She was admitted and managed for hyponatremia. She was hydrated with IV fluid normal saline. Serum osmolality and urine osmolality as well as urine electrolytes were ordered and these showed evidence of SIADH. She was therefore placed on fluid restriction and nephrology was consulted. She was also placed on sodium tablets. Her sodium gradually trended up and was up to 132 at time of discharge. Gastroenterology was also consulted due to her dysphagia. She had EGD which showed a Steffanie-Matt tear as well as hiatal hernia and an oozing gastric ulcer with pigmented material and red blood in the pylorus which was treated with a heater probe. She was placed on p.o. pantoprazole 40 mg twice daily. As stated patient's sodium came up to 132 and she felt much better. She was discharged home on 03/15/2024. Her hydrochlorothiazide was discontinued and she was given a prescription for sodium tablets 1 g 3 times daily. She is follow-up with her primary care doctor, with nephrology and with gastroenterology within 1 to 2 weeks. Patient seen and examined prior to discharge. She had no active complaints and felt better. She wanted to be discharged home. Review of systems otherwise negative. Labs and vitals reviewed. Home medication reviewed and reconciled. She was discharged with a prescription for p.o. cefdinir 300 mg twice daily for 5 days to treat her UTI which she was also admitted for and treated with IV ceftriaxone. Physical Exam Const alert, oriented x3, no apparent distress, average body habitus, no limitations, healthy appearing and well nourished General Appearance: cooperative, comfortable, well developed and limp Exam Limitations: no limitations HEENT normocephalic, head/scalp atraumatic, hearing grossly normal bilaterally and moist oral mucous membranes Mouth: oral and palatal mucosa normal Eyes PERRL and EOMs intact bilaterally Neck no lymphadenopathy, supple and no JVD Lymph Lymphatic: no lymphadenopathy noted and no lymphedema noted Resp normal respiratory effort, normal air movement, no retractions, no use of accessory muscles and clear to auscultation bilaterally Auscultation: Negative for rales, rhonchi or wheezes Cardio regular rate, regular rhythm, S1 normal heart sound, S2 normal heart sound, no murmurs, no rub, no gallops and no clicks GI normal to inspection, nondistended, normoactive bowel sounds, soft to palpation, non-tender and non-distended Extremity normal to inspection, full ROM, normal capillary refill, no clubbing, cyanosis or edema and no calf tenderness Extremity Narrative: 2+ pedal pulses General Extremity: no tenderness to palpation of joints or extremities Skin no rashes or lesions noted General Skin Exam: no breakdown Neuro oriented x3, CN's II-XII intact bilaterally, moves all extremities, no focal motor deficits, no sensory deficits noted and deep tendon reflexes 2+ bilaterally Sensorium / Orientation: awake and alert Speech: speech normal Motor Exam: strength 5/5 throughout and general weakness Psych thought process normal, cooperative and affect normal Appearance: appropriate Weight / BMI Weight Weight: 124 lb 8.979 oz Body Mass Index (BMI) 24.3 ABG / Lab / Microbiology Data 03/15/24 05:08 03/15/24 05:08 Laboratory: Laboratory Results - last 24 hr 03/15/24 05:08: WBC 4.0 L, RBC 3.37 L, Hgb 9.6 L, Hct 29.2 L, MCV 86.6 D, MCH 28.5, MCHC 32.9, RDW Std Deviation 49.7 H, RDW Coeff of Catrachita 15.9 H, Plt Count 211, MPV 8.5, Immature Gran % (Auto) 0.300, Neut % (Auto) 63.3, Lymph % (Auto) 22.2, [place] % (Auto) 12.6 H, Eos % (Auto) 1.3, Baso % (Auto) 0.3, Absolute Neuts (auto) 2.5, Absolute Lymphs (auto) 0.88, Nucleated RBC % 0, Sodium 132 L, Potassium 3.9, Chloride 101, Carbon Dioxide 22.0, Anion Gap 9, BUN 10, Creatinine 0.62, Estim Creat Clear Calc 44.92, Est GFR (MDRD) Af Amer 119, Est GFR (MDRD) Non-Af 98, BUN/Creatinine Ratio 16.0, Glucose 99, Calcium 9.0 Microbiology: Microbiology 03/13/24 19:00 Urine, Clean Catch Urine Culture - Final Mixed Gram Pos & Gram Neg Org D/C Instructions Discharge Diet: Low fat / Low cholesterol Discharge Activity: Return to Normal Activity Weight Bearing Status: Weight bearing as tolerated Call your doctor if you observe: Fever of 101 or Higher, Shortness of breath, Dizziness, Swelling in the ankles, Chest pain and Increased palpitations (irregular heartbeat) Meaningful Use Info Meaningful Use Meaningful Use Diagnoses (Choose all that apply): None applicable Ischemic Stroke Statin Dosing Therapy Reference: STATIN DOSE THERAPY REFERENCE: * Patients > 75 years receive moderate or high dose statin therapy. * Patients 75 years or YOUNGER should receive HIGH intensity statin dose unless contraindicated. You will be required to document reason for non-treatment if statin daily dose does not meet guidelines. HIGH DOSE STATIN THERAPY DAILY Atorvastatin > than or = to 40 mg Rosuvastatin > than or = to 20 mg Amlodipine + Atorvastatin > than or = to 2.5/40 mg Ezetimibe + Simvastatin 10/80 mg Simvastatin 80mg Discharge Plan Admission Admit Date/Time: 03/11/24 17:32 Primary Reason for Your Visit: hyponatremia Attending Provider: Miladis Holland Primary Care Provider: Dejuan Selby Consulting Providers: Pastora Telles; Eliazar Harrell Instructions Patient Instructions: Hyponatremia Ch Dc Discharge Orders/Prescriptions Prescriptions: New sodium chloride 1,000 mg Tablet,Soluble 1,000 mg PO TID Qty: 90 1RF cefdinir 300 mg capsule 300 mg PO BID Qty: 10 0RF Continued amlodipine 5 mg tablet 5 mg PO QDAY ondansetron 4 mg tablet,disintegrating 4 mg PO Q8H Qty: 20 2RF levothyroxine [Synthroid] 50 mcg tablet 50 mcg PO DAILY lisinopril 30 mg tablet 30 mg PO DAILY omeprazole 40 mg capsule,delayed release(DR/EC) 40 mg PO BID Qty: 180 0RF Discontinued hydrochlorothiazide 25 mg tablet 25 mg PO DAILY Referrals / Follow Up: Eliazar Harrell MD [Med Staff - Consulting] - Within 2 Weeks Dejuan Selby MD [Primary Care Provider] - Within 1 Week Disposition Disposition (needs filled in before D/C Order can be placed): Home, Self Care Charges/Coding Visit Charges Inpatient E&M: 21313 Disch Hosp >30min
--- NOTE | 2024-03-15 11:59 | CASEMGMT ---
Order for DC placed. MEGAN BARCENAS to pt room at this time. Pt states that she is happy that she is getting discharged today. Pt states that she lives with her daughter and that she will pick the pt up today. Pt states that she feels safe going home today. Pt states that she is still interested in attending OP Tx. Pt states that she would like to go to [facility] in [place]. Pt states that she would like to set up the appt herself d/t transportation availability. Rx signed by Dr. Holland. Physical Rx given to the pt at this time. Pt thanks this MEGAN BARCENAS and denies further questions or concerns.
--- NOTE | 2024-03-15 13:14 | PCM.PN.REN ---
Subjective Subjective No new complaints today. Sodium is more than 130 today. Objective Data Objective Data Vital Signs: Vital Signs Temp Pulse Resp BP Pulse Ox O2 Del Method 98.6 F 89 16 141/72 H 99 Room Air 03/15/24 10:15 03/15/24 10:15 03/15/24 10:15 03/15/24 10:15 03/15/24 10:15 03/15/24 10:15 Oxygen Delivery Method Room Air Weight: 56.5 kg Body Mass Index (BMI) 24.3 Intake & Output: Intake and Output for Last 24 Hours 03/13/24 03/14/24 03/15/24 23:59 23:59 23:59 Intake Total 1000 / 1240 650 / 850 790 / 790 Balance 1000 / 1240 650 / 850 790 / 790 Lab / Micro Data 03/15/24 05:08 03/15/24 05:08 Labs: Laboratory Results - last 24 hr 03/15/24 05:08: WBC 4.0 L, RBC 3.37 L, Hgb 9.6 L, Hct 29.2 L, MCV 86.6 D, MCH 28.5, MCHC 32.9, RDW Std Deviation 49.7 H, RDW Coeff of Catrachita 15.9 H, Plt Count 211, MPV 8.5, Immature Gran % (Auto) 0.300, Neut % (Auto) 63.3, Lymph % (Auto) 22.2, [place] % (Auto) 12.6 H, Eos % (Auto) 1.3, Baso % (Auto) 0.3, Absolute Neuts (auto) 2.5, Absolute Lymphs (auto) 0.88, Nucleated RBC % 0, Sodium 132 L, Potassium 3.9, Chloride 101, Carbon Dioxide 22.0, Anion Gap 9, BUN 10, Creatinine 0.62, Estim Creat Clear Calc 44.92, Est GFR (MDRD) Af Amer 119, Est GFR (MDRD) Non-Af 98, BUN/Creatinine Ratio 16.0, Glucose 99, Calcium 9.0 Micro: Microbiology 03/13/24 19:00 Urine, Clean Catch Urine Culture - Final Mixed Gram Pos & Gram Neg Org Rhythm Strip Rhythm Strip: Sinus Rhythm Rate: 80 Ectopy: None Physical Exam Narrative Alert awake oriented x 3 no obvious distress no pallor no icterus no JVD s1s2 no murmurs lungs clear abdomen soft no organomegaly no edema no cyanosis Assessment & Plan Assessment/Plan (1) Acute hyponatremia: PLAN: New onset as per her. Urine sodium more than 20, urine osmolality more than 100. 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 She is on hydrochlorothiazide which she has been taking for many years now. Poor appetite, unable to eat much for 2 weeks prior to coming in. Hyponatremia did not respond to IV fluids. Possible transient SIADH. Sodium is better with salt tablets. Discharge home today. Discussed with hospitalist. Discharged on sodium chloride 1 g 3 times daily for now. BMP in 1 to 2 weeks. Will arrange follow-up in about 2 weeks. At that time we will decide if we still need to continue salt tablets or not. Hold hydrochlorothiazide at the time of discharge.
[2024-03-16 16:09] LABS: Beef <0.10 kU/L (Class 0); Chocolate <0.10 kU/L (Class 0); Codfish <0.10 kU/L (Class 0); Corn <0.10 kU/L (Class 0); Egg, Whole <0.10 kU/L (Class 0); Milk (Cow) <0.10 kU/L (Class 0); Mussels <0.10 kU/L (Class 0); Peanut <0.10 kU/L (Class 0); Pork <0.10 kU/L (Class 0); Salmon <0.10 kU/L (Class 0); Shrimp <0.10 kU/L (Class 0); Soybean <0.10 kU/L (Class 0); Tuna <0.10 kU/L (Class 0); Wheat 0.26 kU/L (Class 0/I)
[2024-03-18 16:09] LABS: ALDOSTERONE/RENIN RATIO 1.9 (0.0-30.0); Albumin 3.3 g/dL (2.9-4.4); Alpha-1-Globulins 0.2 g/dL (0.0-0.4); Alpha-2-Globulins 0.8 g/dL (0.4-1.0); Chromogranin A 761.2 ng/mL (0.0-101.8); Deamidated Gliadin IgA 2 units (0-19); Deamidated Gliadin IgG 2 units (0-19); Endomysial Antibody IgA Negative (Negative); Gamma Globulin 0.5 g/dL (0.4-1.8); Gastrin, Serum 301 pg/mL (0-115); Immunoglobulin A 58 mg/dL (64-422); Immunoglobulin E 18 IU/mL (6-495); Immunoglobulin G 575 mg/dL (586-1602); Immunoglobulin M 89 mg/dL (26-217); Intrinsic Factor Ab 1.2 AU/mL (0.0-1.1); PROEL- TOTAL PROTEIN 5.6 g/dL (6.0-8.5); Renin, Plasma 1.057 ng/mL/hr (0.167-5.380); t-Transglutaminase IgA <2 U/mL (0-3)
== END 2024-03-15 14:13 | disposition home or self-care (01) | DRG 643 ==
LOC: ED 17:39 → PCU 18:01
PROVIDERS: Internal Medicine Gastroenterology; Admitting Provider Internal Medicine; Emergency Provider Emergency Medicine; PCP Family Medicine; Visit Provider Student in an Organized Health Care Education/Training Program
PROC: 0DJ08ZZ Inspection of Upper Intestinal Tract, Via Natural or Artificial Opening Endoscopic (ICD-10-PCS; CPT 43235; principal; 2024-03-14 08:25)
DX: E22.2 Syndrome of inappropriate secretion of antidiuretic hormone (principal); K22.6 Gastro-esophageal laceration-hemorrhage syndrome; K25.4 Chronic or unspecified gastric ulcer with hemorrhage; N39.0 Urinary tract infection, site not specified; N18.31 Chronic kidney disease, stage 3a; I12.9 Hypertensive chronic kidney disease with stage 1 through stage 4 chronic kidney disease, or unspecified chronic kidney disease; E03.9 Hypothyroidism, unspecified; D50.9 Iron deficiency anemia, unspecified; E87.6 Hypokalemia; E83.42 Hypomagnesemia; K29.70 Gastritis, unspecified, without bleeding; K44.9 Diaphragmatic hernia without obstruction or gangrene; K59.09 Other constipation; E86.0 Dehydration; K22.70 Barrett's esophagus without dysplasia; R68.81 Early satiety; R13.10 Dysphagia, unspecified; T50.2X5A Adverse effect of carbonic-anhydrase inhibitors, benzothiadiazides and other diuretics, initial encounter; R53.81 Other malaise; Z23 Encounter for immunization; Z79.899 Other long term (current) drug therapy
CPT/HCPCS: 36415; 70450; 74018; 80048; 80053; 81001; 82088; 82533; 82607; 82746; 82784; 82785; 82941; 83516; 83690; 83735; 83930; 83935; 84100; 84165; 84244; 84295; 84300; 84443; 84550; 85025; 86003; 86005; 86255; 86316; 86334; 86340; 87086; 87088; 90662; 93005; 94668; 97116; 97161; 97530; 97802; 97803; 99285; J7030; J7120; A4216; J2405

== ENCOUNTER → 2024-03-11 | Outpatient (CLI) | payer MEDICARE, SELFPAY ==
--- NOTE | 2024-03-11 11:42 | RAD_ITS ---
STUDY: X-RAY - ABDOMEN/PELVIS REASON FOR EXAM: Female, 78 years old. Constipation TECHNIQUE: Two AP supine views of the abdomen and pelvis. COMPARISON: CT of the abdomen and pelvis dated 01/12/2022. FINDINGS: There is no bowel obstruction. There is air and stool to the level of the rectum. There is mild constipation. There are degenerative changes noted in the spine which are stable when compared with the abdominal CT dated 01/12/2022. RAD/Abdomen Single View IMPRESSION: No bowel obstruction. Mild constipation. Electronically Signed: Raudel Louie MD at 13:43 EDT ,
[2024-03-11 12:13] LABS: Absolute Lymphocyte Count 0.99 X10^3/uL (0.83-4.51); Absolute Neutrophil Count 4.5 X10^3/uL (2.0-7.7); Basophil# 0.02 X10^3/uL; Basophil% 0.3 % (0-1); Eosinophil# 0.03 X10^3/uL; Eosinophils% 0.5 % (0-5); Hematocrit 35.1 % (37-47); Hemoglobin 11.5 g/dL (12.0-15.0); Lymphocyte # 0.99 X10^3/ul (0.83-4.51); Lymphocyte % 16.3 % (19-41); Mean Corp Hgb Conc 32.8 g/dL (32-36); Mean Corpuscular Hgb 27.7 pg (27.0-32.0); Mean Corpuscular Volume 84.6 fL (81-99); Mean Platelet Vol. 8.4 fl (6.2-12.0); Monocyte% 8.2 % (0-10); NRBC Flagged by Analyzer 0 % (0-5); Neutrophil # 4.48 X10^3/uL (2.7-7.7); Neutrophil % 73.9 % (47-70); Platelet Count 297 K/mm3 (150-450); RBC Distribution Width SD 46.2 fl (35.1-43.9); Red Blood Count 4.15 M/mm3 (4.2-5.4); White Blood Count 6.1 K/mm3 (4.4-11.0)
[2024-03-11 12:34] LABS: AST(SGOT) 23 U/L (15-37); Alanine Aminotransfer ALT/SGPT 14 U/L (13-56); Albumin, Serum 3.7 g/dL (3.2-5.0); Alkaline Phosphatase 72 U/L (45-117); Anion Gap 16 (5-15); BUN 15 mg/dL (7-18); BUN/Creat Ratio 14.4 RATIO (10-20); Calcium,Total 10.3 mg/dL (8.5-10.1); Chloride 83 mmol/L (98-107); Creatinine, Serum 1.04 mg/dL (0.55-1.02); EST Glomerular Filtration Rate 54 mL/min (>60); Est Glom Filt Rate - Afr Amer 66 mL/min (>60); Globulin 3.7 g/dL (2.2-4.2); Glucose 78 mg/dL (74-106); Lipase 48 U/L (13-75); Potassium 3.3 mmol/L (3.5-5.1); Protein, Total 7.4 g/dL (6.4-8.2); Sodium Level 121 mmol/L (136-145)
== END | disposition home or self-care (01) ==
PROVIDERS: PCP Family Medicine; Referring Provider Student in an Organized Health Care Education/Training Program; Visit Provider Student in an Organized Health Care Education/Training Program
DX: R11.0 Nausea (principal); R53.83 Other fatigue; K59.00 Constipation, unspecified
CPT/HCPCS: 36415; 74018; 80053; 83690; 85025

== ENCOUNTER → 2024-06-10 | Outpatient (CLI) | payer MEDICARE, SELFPAY ==
--- NOTE | 2024-06-10 11:45 | RAD_ITS ---
STUDY: X-RAY CHEST REASON FOR EXAM: Female, 78 years old. weight loss, elevated CaG TECHNIQUE: PA and lateral views of the chest. COMPARISON: None. FINDINGS: The lungs are clear and expanded. There is no demonstrated pleural abnormality. Normal size heart. Normal mediastinum and lady. Normal visualized pulmonary arteries. Normal visualized aortic arch and descending thoracic aorta. Normal visualized thoracic spine. Normal visualized ribs, clavicles, and shoulders. There is no demonstrated abnormality of the visualized soft tissue structures of the upper abdomen. RAD/Chest PA and Lateral IMPRESSION: Normal x-ray examination of the chest. Electronically Signed: Krzysztof Smyth MD at 14:08 EST ,
[2024-06-10 11:51] LABS: Absolute Lymphocyte Count 1.24 X10^3/uL (0.83-4.51); Absolute Neutrophil Count 5.4 X10^3/uL (2.0-7.7); Basophil# 0.02 X10^3/uL; Basophil% 0.3 % (0-1); Eosinophil# 0.08 X10^3/uL; Eosinophils% 1.1 % (0-5); Hematocrit 34.4 % (37-47); Hemoglobin 10.7 g/dL (12.0-15.0); Lymphocyte # 1.24 X10^3/ul (0.83-4.51); Lymphocyte % 16.9 % (19-41); Mean Corp Hgb Conc 31.1 g/dL (32-36); Mean Corpuscular Hgb 26.5 pg (27.0-32.0); Mean Corpuscular Volume 85.1 fL (81-99); Mean Platelet Vol. 8.2 fl (6.2-12.0); Monocyte# 0.53 X10^3/uL; Monocyte% 7.2 % (0-10); NRBC Flagged by Analyzer 0 % (0-5); Neutrophil # 5.43 X10^3/uL (2.7-7.7); Neutrophil % 74.2 % (47-70); Platelet Count 249 K/mm3 (150-450); RBC Distribution Width CV 13.5 % (11.6-14.6); RBC Distribution Width SD 42.5 fl (35.1-43.9); Red Blood Count 4.04 M/mm3 (4.2-5.4); White Blood Count 7.3 K/mm3 (4.4-11.0)
[2024-06-10 13:23] LABS: Anion Gap 11 (5-15); BUN 20 mg/dL (7-18); BUN/Creat Ratio 25.1 RATIO (10-20); Calcium,Total 9.9 mg/dL (8.5-10.1); Chloride 98 mmol/L (98-107); EST Glomerular Filtration Rate 74 mL/min (>60); Est Glom Filt Rate - Afr Amer 89 mL/min (>60); Glucose 96 mg/dL (74-106); Potassium 3.9 mmol/L (3.5-5.1); Sodium Level 129 mmol/L (136-145)
[2024-06-10 15:50] LABS: Vitamin B12 > 2000 pg/mL (211-911)
== END | disposition home or self-care (01) ==
LOC: LAB 11:14
PROVIDERS: PCP Family Medicine; Referring Provider Nurse Practitioner Acute Care; Visit Provider Nurse Practitioner Acute Care
DX: D64.9 Anemia, unspecified (principal); E87.1 Hypo-osmolality and hyponatremia; R63.4 Abnormal weight loss; R11.0 Nausea; K22.70 Barrett's esophagus without dysplasia; K21.9 Gastro-esophageal reflux disease without esophagitis
CPT/HCPCS: 36415; 71046; 80048; 82607; 83516; 85025

== ENCOUNTER 2024-08-29 06:58 | Day surgery (SDC) | payer MEDICARE, SELFPAY ==
--- NOTE | 2024-08-28 11:03 | PAT.ANE_ITS ---
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 When Was Last Pacemaker Check QUESTION #4 FULL TEXT: You/Your Family Experience fever (hyperthermia) with Anesthesia Last Oral Intake Last Oral intake: Last Oral Intake NPO since Meds taken in AM with sips of water? Meds patient instructed to take am of surgery PONV PONV - indoor plant technician: PONV - indoor plant technician Female Yes 08/28/24 10:29 HX of Motion Sickness No 08/28/24 10:29 HX of N/V After Surgery No 08/28/24 10:29 Non-Smoker Yes 08/28/24 10:29 Duration of Surgery greater No 08/28/24 10:29 than 60 minutes Number of Risk Factors 2 08/28/24 10:29 PONV Score Moderate Risk 08/28/24 10:29 Height & Weight Height & Weight: Anesthesia: Height & Weight Height 5 ft 03/15/24 09:35 Respiratory Assessment Respiratory Assessment - indoor plant technician: Respiratory Tract Infection Hx - indoor plant technician Hx Respiratory Tract Infection No 08/28/24 10:29 STOP Sleep Apnea STOP Sleep Apnea - indoor plant technician: STOP Sleep Apnea - indoor plant technician Hx Hypertension Yes: UNCONTROLLED 08/28/24 10:29 Hx Sleep Apnea No 08/28/24 10:29 CPAP BIPAP Do you snore loudly (louder No 08/28/24 10:29 than talking or can be heard Do you often feel tired/ No 08/28/24 10:29 fatigued/ sleepy during daytime? Has anyone observed you stop No 08/28/24 10:29 breathing during sleep? STOP Results Negative 08/28/24 10:29 QUESTION #5 FULL TEXT : Do you snore loudly (louder than talking or can be heard through closed doors)? 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 Specify any problems Hx of Preganancy in last 3 N/A 08/28/24 10:29 Months Nurse Filling Out Transfusion NBUCHER 08/28/24 10:29 & Questions: Date: 08/28/24 08/28/24 10:29 Time: 10:32 08/28/24 10:29 Patient unable to answer at this time (ie. confused, unrespo /Reproduction History /Reproductive History - indoor plant technician: /Reproductive Hx- indoor plant technician Hx Now Gestational Age (in weeks): EDC: Hx Hx Para Hx Section SAB No 08/28/24 10:29 [facility] Medical History (Updated 08/28/24 @ 10:36 by Sonia Cee) Hypothyroid Non-smoker Leg cramps Generalized weakness Acute hyponatremia Nausea & vomiting History of pain when walking Wears partial dentures Wears glasses Post-menopausal Anxiety Thyroid disease Arthritis Anemia Easy bruising Back pain Migraine headache History of hiatal hernia History of ulceration History of diverticulitis Gastric reflux Constipation Depression Osteoporosis Hypertension Vertigo Chronic kidney disease, stage 3a Gastric ulcer Abdominal pain Home Medications ?Medication ?Instructions ?Recorded ?Last Taken ?Type omeprazole 40 mg capsule,delayed 40 mg PO BID reflux # 180 caps 02/06/23 03/10/24 Rx release amlodipine 5 mg tablet 5 mg PO QDAY blood pressure 03/11/24 03/10/24 History levothyroxine 50 mcg tablet 50 mcg PO DAILY thyroid 03/09/24 History (Synthroid) lisinopril 30 mg tablet 30 mg PO DAILY 08/28/24 Unkn own History Allergy/AdvReac Type Severity Reaction Status Date / Time No Known Allergies Allergy Verified 08/28/24 10:26 Surgical History (Updated 08/28/24 @ 10:36 by Sonia Cee) History of colonoscopy History of esophagogastroduodenoscopy (EGD) Hx of hernia repair Hx of inguinal hernia repair Hx laparoscopic cholecystectomy Hx of hysterectomy Social History household members: none housing: house Smoking Status: Never smoker alcohol intake: never substance use type: does not use Audit: Pertinent Findings Pertinent Findings EKG Perinent findings: 03/14/2024 normal sinus rhythm 88 bpm left axis deviation, pulmonary disease pattern Pulmonary function results/spirometer pertinent findings: Chest x-ray 06/10/2024 normal x-ray examination of chest Additional pertinent findings: 06/10/2024. Sodium 129 mmol/L. This is chronic and stable Recommendation Anesthesia Recommendation Anesthesia recommendation: OPTIMIZED for anesthesia
[2024-08-29] VITALS (8 sets, daily range): BP systolic 121–172; BP diastolic 61–82; PULSE 82–91; RESP 16–20; TEMP 36.4–37.3; O2SAT 96–100; BMI 24.7
--- NOTE | 2024-08-29 07:36 | HP.PCM_ITS ---
HPI - General General Date of Admission: 08/29/24 Date of Service: 08/29/24 Chief Complaint: Lechuga's and Anemia HPI Narrative KAITLYNN TONEY, is a 78 F who presents today for evaluation of her Lechuga's esophagus Celiac labs negative 03/12/2024 - Total IgA low at 58 Vitamin B12 >2000 03/12/2024 Intrinsic factor elevated (1.2) 03/12/2024 [ref. range 0.0-1.1] Chromogranin A elevated 761 Food Allergen panel 03/12/2024 wheat was elevated Gastrin 03/12/2024 elevated 301 - on a PPI EGD was performed September 2023 and biopsies at that time were consistent with Lechuga's esophagus without dysplasia. Colonoscopy was last performed July 2022 and revealed a hyperplastic polyp. EGD 03/14/2024 There were esophageal mucosal changes secondary to established short-segment Lechuga's disease present in the lower third of the esophagus. The maximum longitudinal extent of these mucosal changes was 3 cm in length. A 8 mm bleeding James-Escobar tear was found. Coagulation for hemostasis using heater probe was successful. Estimated blood loss was minimal. A medium-sized hiatal hernia was present. Red blood was found at the pylorus. One oozing linear gastric ulcer with pigmented material was found at the pylorus. The lesion was 5 mm in largest dimension. Coagulation for hemostasis using heater probe was successful. Estimated blood loss was minimal. No gross lesions were noted in the first portion of the duodenum. - denies any neuro symptoms - denies use of any NSAIDS - denies any N/V - denies any h/o smoking - c/o saliva feels thick and feels this has decreased her taste - she denies taking any B12 supplements - denies any glossitis - denies any palpitations - denies any recent falls - lives with her daughter - reports her weight is down 5lbs - reports the Na tablets caused her to have terrible itching and discontinued - she reports she had labs 1 month ago with PCP - she has a BM once a day - denies any BRBPR - denies any melena - denies any cough - denies any HB PFSH Medical History Hypothyroid Non-smoker Leg cramps Generalized weakness Acute hyponatremia Nausea & vomiting History of pain when walking Wears partial dentures Wears glasses Post-menopausal Anxiety Thyroid disease Arthritis Anemia Easy bruising Back pain Migraine headache History of hiatal hernia History of ulceration History of diverticulitis Gastric reflux Constipation Depression Osteoporosis Hypertension Vertigo Chronic kidney disease, stage 3a Gastric ulcer Abdominal pain Home Medications ?Medication ?Instructions ?Recorded ?Last Taken ?Type omeprazole 40 mg capsule,delayed 40 mg PO BID reflux # 180 caps 02/06/23 08/29/24 Rx release amlodipine 5 mg tablet 5 mg PO QDAY blood pressure 03/11/24 08/29/24 History levothyroxine 50 mcg tablet 50 mcg PO DAILY thyroid 08/29/24 History (Synthroid) lisinopril 30 mg tablet 30 mg PO DAILY 08/28/24 Unkn own History Allergy/AdvReac Type Severity Reaction Status Date / Time No Known Allergies Allergy Verified 08/29/24 07:19 Surgical History History of colonoscopy History of esophagogastroduodenoscopy (EGD) Hx of hernia repair Hx of inguinal hernia repair Hx laparoscopic cholecystectomy Hx of hysterectomy Social History household members: none housing: house Smoking Status: Never smoker alcohol intake: never substance use type: does not use ROS Constitutional Constitutional: Denies fatigue, fever(s), poor appetite, weight gain or weight loss Gastrointestinal Gastrointestinal: Denies belching, bloating, change in bowel habits, change in stool character, chewing difficulty, coffee ground emesis, constipation, cramping, diarrhea, dyspepsia, dysphagia, early satiety, excessive flatus, fecal incontinence, heartburn, hematemesis, hematochezia, hemorrhoids, loose stools, melena, nausea, odynophagia, rectal bleeding, tenesmus, vomiting or weight changes Vital Signs Vital Signs Vital Signs: 08/29/24 07:21 08/29/24 07:21 Temperature 97.6 F L Temperature Source Temporal Pulse Rate 89 Respiratory Rate 16 Respiratory Pattern Normal Blood Pressure 172/82 H Blood Pressure Mean 112 Blood Pressure Source Monitor Blood Pressure Position Semi-Fowlers Blood Pressure Location Right Arm Pulse Ox 100 Oxygen Delivery Method Room Air Weight Weight: 127 lb Body Mass Index (BMI) 24.7 Physical Exam Narrative Alert awake oriented x 3 no obvious distress no pallor no icterus no JVD s1s2 no murmurs lungs clear abdomen soft no organomegaly no edema no cyanosis Assessment & Plan Assessment/Plan (1) Lechuga's esophagus: QUALIFIERS: Lechuga's esophagus type: without dysplasia Qualified Code(s): K22.70 - Lechuga's esophagus without dysplasia (2) Anemia: PLAN: Assessment and Plan Assessment and Plan (1) Anemia: Status: Acute Comment: HX OF (2) Nausea: Status: Acute (3) Weight loss: Status: Acute (4) Hyponatremia: Status: Acute (5) GERD (gastroesophageal reflux disease): Status: Chronic Qualifiers: Esophagitis bleeding: without hemorrhage (6) Lechuga's esophagus: Status: Acute Qualifiers: Lechuga's esophagus type: without dysplasia Qualified Code(s): K22.70 - Lechuga's esophagus without dysplasia Comment: 3cm - long segment Orders: Orders CBC W/Diff, Automated 06/10/24 D64.9 - Anemia, unspecified, E87.1 - Hypo- osmolality and hyponatremia, K21.9 - Gastro-esophageal reflux disease without esophagitis, K22.70 - Lechuga's esophagus without dysplasia, R11.0 - Nausea, R63.4 - Abnormal weight loss Basic Metabolic Profile (BMP) 06/10/24 D64.9 - Anemia, unspecified, E87.1 - Hypo-osmolality and hyponatremia, K21.9 - Gastro-esophageal reflux disease without esophagitis, K22.70 - Lechuga's esophagus without dysplasia, R11.0 - Nausea, R63.4 - Abnormal weight loss Vitamin B12 06/10/24 D64.9 - Anemia, unspecified, E87.1 - Hypo-osmolality and hyponatremia, K21.9 - Gastro-esophageal reflux disease without esophagitis, K22.70 - Lechuga's esophagus without dysplasia, R11.0 - Nausea, R63.4 - Abnormal weight loss t-Transglutaminase IgG 06/10/24 D64.9 - Anemia, unspecified, E87.1 - Hypo- osmolality and hyponatremia, K21.9 - Gastro-esophageal reflux disease without esophagitis, K22.70 - Lechuga's esophagus without dysplasia, R11.0 - Nausea, R63.4 - Abnormal weight loss Miscellaneous Lab Procedure 06/10/24 D64.9 - Anemia, unspecified, E87.1 - Hypo- osmolality and hyponatremia, K21.9 - Gastro-esophageal reflux disease without esophagitis, K22.70 - Lechuga's esophagus without dysplasia, R11.0 - Nausea, R63.4 - Abnormal weight loss Plan 78y/o female presents for follow-up of Fe deficiency anemia with PMH of long- segment Lechuga's (3cm) without dysplasia. EGD was performed 03/14/2024 and revealed long segment Lechuga's (3cm), james escobar tear, medium HH and one oozing linear gastric ulcer. Labs performed 03/15/2024 revealed HGB 9.6. She was recently admitted for acute hyponatremia. Labs completed during admission reveal elevated gastrin 301 which is likely secondary to PPI use. Celiac serologies were negative; however, her total IgA was low which may cause a falsely low TTG IgA rendering this a possible false negative. The duodenum appeared normal on EGD, no biopsies were obtained. Her B12 level is >2000 with a minutely elevated IFAB at 1.2 (ref. range 0-1.1) and normal MCV. CaG is markedly elevated at 761 (ref. range 0-102). While CaG may be elevated in chronic atrophic gastritis, it is non-specific and elevated levels can also be seen in neuroendocrine tumors, as well as several other non-cancerous and cancerous conditions. She denies any glossitis, neurological symptoms or palpitations; but does complain of hypogeusia and persistent hypertension despite medication adjustment. I have ordered additional labs including urine catecholamine and CXR. She will follow- up with PCP for hypertension (177/78). In terms of gastric ulcer noted on EGD she will remain on PPI BID and repeat EGD. Patient Instructions: 1. Repeat EGD - continue PPI BID, will consider decreasing to QD post EGD 2. Complete labs and CXR today 3. Follow-up with PCP for hypertension Plan Details Follow Up: 3 Months
--- NOTE | 2024-08-29 07:49 | PCM.PRE.AN2 ---
ASA Classification* ASA Classification ASA Classification: 3 Assessment & Plan Anesthesia* Anesthesia Assessment Anesthesia Assessment: Discussed sedation and/or anesthesia options, risks, benefits, and alternatives with patient/parents/legal guardian/POA. Questions invited. The patient/parents/legal guardian/POA seems to understand and agrees to proceed with anesthesia plan. Reviewed the physical assessment, medical history, allergy history and patient home medications list prior to surgery/procedure/anesthetic and documented any changes. Performed airway and anesthesia risk assessments. Anesthesia Type Anesthesia Type: MAC History Source History Obtained from:: Patient and Chart Anesthesia Focused Assessment* Temperature: 97.6 F Pulse Rate: 89 Blood Pressure: 172/82 Respiratory Rate: 16 Pulse Ox: 100 Oxygen Delivery Method: Room Air Airway Assessment Mouth opens: >3 cm Mallampati Score: IV Teeth Condition: Chipped/Broken (I am tooth #9 is chipped.) and Partial (Patient has upper and lower partials. They are out.) Neck Range of motion (ROM): Full ROM Focused Labs Anesthesia Preop lab: CBC WBC 7.3 K/mm3 (4.4-11.0) 06/10/24 11:30 06/10/24 RBC 4.04 M/mm3 (4.2-5.4) L 06/10/24 11:30 06/10/24 Hgb 10.7 g/dL (12.0-15.0) L 06/10/24 11:30 06/10/24 Hct 34.4 % (37-47) L 06/10/24 11:30 06/10/24 Plt Count 249 K/mm3 (150-450) 06/10/24 11:30 06/10/24 CHEMISTRY Potassium 3.9 mmol/L (3.5-5.1) 06/10/24 11:30 06/10/24 Sodium 129 mmol/L (136-145) L 06/10/24 11:30 06/10/24 Magnesium 1.9 mg/dL (1.6-2.6) 03/12/24 05:14 03/12/24 Phosphorus 1.5 mg/dL (2.5-4.9) L 03/12/24 05:14 03/12/24 BUN 20 mg/dL (7-18) H 06/10/24 11:30 06/10/24 Creatinine 0.80 mg/dL (0.55-1.02) 06/10/24 11:30 06/10/24 Glucose 96 mg/dL (74-106) 06/10/24 11:30 06/10/24 TSH 2.210 uIU/mL (0.358-3.740) 03/11/24 15:37 03/11/24 COAG Pre-Assessment Diagnosis/Proposed Procedure Planned Operative Procedure(s): EGD Anesthesia History 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 When Was Last Pacemaker Check QUESTION #4 FULL TEXT: You/Your Family Experience fever (hyperthermia) with Anesthesia Last Oral Intake Last Oral intake: Last Oral Intake NPO since 04:30 08/29/24 07:21 Meds taken in AM with sips of Yes 08/29/24 07:21 water? Meds patient instructed to see mar 08/29/24 07:21 take am of surgery Any additional information?: Yes NPO since: 04:30 (Patient took her meds at 4:30 AM.) Meds taken in AM with sips of water?: Yes PONV PONV - corporate real estate manager: PONV - corporate real estate manager Female Yes 08/28/24 10:29 HX of Motion Sickness No 08/28/24 10:29 HX of N/V After Surgery No 08/28/24 10:29 Non-Smoker Yes 08/28/24 10:29 Duration of Surgery greater No 08/28/24 10:29 than 60 minutes Number of Risk Factors 2 08/28/24 10:29 PONV Score Moderate Risk 08/28/24 10:29 Height & Weight Height & Weight: Anesthesia: Height & Weight Height 5 ft 08/29/24 07:21 Weight: 57.606 kg 08/29/24 07:21 Body Mass Index (BMI) 24.7 08/29/24 07:21 Respiratory Assessment Respiratory Assessment - corporate real estate manager: Respiratory Tract Infection Hx - corporate real estate manager Hx Respiratory Tract Infection No 08/28/24 10:29 STOP Sleep Apnea STOP Sleep Apnea - corporate real estate manager: STOP Sleep Apnea - corporate real estate manager Hx Hypertension Yes: UNCONTROLLED 08/28/24 10:29 Hx Sleep Apnea No 08/28/24 10:29 CPAP BIPAP Do you snore loudly (louder No 08/28/24 10:29 than talking or can be heard Do you often feel tired/ No 08/28/24 10:29 fatigued/ sleepy during daytime? Has anyone observed you stop No 08/28/24 10:29 breathing during sleep? STOP Results Negative 08/28/24 10:29 QUESTION #5 FULL TEXT : Do you snore loudly (louder than talking or can be heard through closed doors)? 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 Specify any problems Hx of Preganancy in last 3 N/A 08/28/24 10:29 Months Nurse Filling Out Transfusion NBUCHER 08/28/24 10:29 & Questions: Date: 08/28/24 08/28/24 10:29 Time: 10:32 08/28/24 10:29 Patient unable to answer at this time (ie. confused, unrespo /Reproduction History /Reproductive History - corporate real estate manager: /Reproductive Hx- corporate real estate manager Hx Now Gestational Age (in weeks): EDC: Hx Hx Para Hx Section SAB No 08/28/24 10:29 PFS Medical History Hypothyroid Non-smoker Leg cramps Generalized weakness Acute hyponatremia Nausea & vomiting History of pain when walking Wears partial dentures Wears glasses Post-menopausal Anxiety Thyroid disease Arthritis Anemia Easy bruising Back pain Migraine headache History of hiatal hernia History of ulceration History of diverticulitis Gastric reflux Constipation Depression Osteoporosis Hypertension Vertigo Chronic kidney disease, stage 3a Gastric ulcer Abdominal pain Home Medications ?Medication ?Instructions ?Recorded ?Last Taken ?Type omeprazole 40 mg capsule,delayed 40 mg PO BID reflux #180 caps 02/06/23 08/29/24 Rx release amlodipine 5 mg tablet 5 mg PO QDAY blood pressure 03/11/24 08/29/24 History levothyroxine 50 mcg tablet 50 mcg PO DAILY thyroid 03/11/24 08/29/24 History (Synthroid) lisinopril 30 mg tablet 30 mg PO DAILY 08/28/24 Unknown History Allergy/AdvReac Type Severity Reaction Status Date / Time No Known Allergies Allergy Verified 08/29/24 07:19 Surgical History History of colonoscopy History of esophagogastroduodenoscopy (EGD) Hx of hernia repair Hx of inguinal hernia repair Hx laparoscopic cholecystectomy Hx of hysterectomy Social History household members: none housing: house Smoking Status: Never smoker alcohol intake: never substance use type: does not use Review of Systems (Anesthesia) ROS Narrative System reviewed and no additional complaints, except as documented.
--- NOTE | 2024-08-29 08:00 | EGD_PTH ---
PATIENT: MERLINE DIAZ LOC: EN U#:[id number] AGE/SX: 78/F ROOM: RE08/29/[address]: Dr. Kanu Maya DO : 1945 BED: DIS: 08/29/2024 SPEC #: [id number] RECD: 08/29/24 09:56 STATUS: SREE RERach #: [id number] CARMINA: 08/29/24 08:[address]: Kanu Maya DEPT: SURGICAL PATHOLOGY RECD BY: Courtney Fraire ENTERED: 08/29/24 11:24 SP TYPE: EGD [facility] DR: Dr. Dejuan Selby MD Tissues: Esophagus, NOS Procedures: Surgery Specimen Level IV HEADER OPERATION: EGD with biopsy PRE-OP DIAGNOSIS: Anemia, nausea, weight loss, hyponatremia, GERD, Lechuga's esophagus TISSUE SUBMITTED: Distal esophagus biopsy MICROSCOPIC DIAGNOSIS Esophagus, distal, biopsy: * Lechuga mucosa negative for dysplasia. MICROSCOPIC DESCRIPTION Slides are reviewed. GROSS DESCRIPTION Received in formalin labeled Merline Diaz, and designated distal esophagus biopsy, are four barnhart tissue fragments aggregating to 0.8 x 0.8 x 0.2 cm. Totally submitted in one cassette.JK. 08/29/2024 CPT:38749
--- NOTE | 2024-08-29 08:36 | OP.EGD_ITS ---
Patient Name: Merline Diaz Procedure Date: 08/29/2024 8:19 AM Date of : 1945 Age: 78 Procedure: Upper GI endoscopy Indications: Follow-up of Lechuga's esophagus Providers: Kanu Maya DO Referring MD: Djeuan Selby Medicines: Monitored Anesthesia Care Patient Profile: This is a 78 year old female. Refer to note in patient chart for documentation of history and physical. Patient has symptoms of chronic heartburn. Her most recent EGD for Lechuga's biopsy was within the past three years. Complications: No immediate complications. Procedure: Pre-Anesthesia Assessment: - Prior to the procedure, a History and Physical was performed, and patient medications and allergies were reviewed. The patient is competent. The risks and benefits of the procedure and the sedation options and risks were discussed with the patient. All questions were answered and informed consent was obtained. Patient identification and proposed procedure were verified by the physician in the pre-procedure area. Mental Status Examination: alert and oriented. Airway Examination: normal oropharyngeal airway and neck mobility. Respiratory Examination: clear to auscultation. CV Examination: normal. Prophylactic Antibiotics: The patient does not require prophylactic antibiotics. Prior Anticoagulants: The patient has taken no anticoagulant or antiplatelet agents except for NSAID medication. ASA Grade Assessment: III - A patient with severe systemic disease. After reviewing the risks and benefits, the patient was deemed in satisfactory condition to undergo the procedure. The anesthesia plan was to use monitored anesthesia care (MAC). Immediately prior to administration of medications, the patient was re-assessed for adequacy to receive sedatives. The heart rate, respiratory rate, oxygen saturations, blood pressure, adequacy of pulmonary ventilation, and response to care were monitored throughout the procedure. The physical status of the patient was re-assessed after the procedure. After obtaining informed consent, the endoscope was passed under direct vision. Throughout the procedure, the patient's blood pressure, pulse, and oxygen saturations were monitored continuously. The Endoscope was introduced through the mouth, and advanced to the second part of duodenum. The upper GI endoscopy was accomplished without difficulty. The patient tolerated the procedure well. Scope In: 8:25:00 AM Scope Out: 8:28:22 AM Total Procedure Duration Time 0 hours 3 minutes 22 seconds Findings: There were esophageal mucosal changes secondary to established long-segment Lechuga's disease present in the lower third of the esophagus. The maximum longitudinal extent of these mucosal changes was 4 cm in length. Mucosa was biopsied with a cold forceps for histology in 4 quadrants at intervals of 1 cm in the lower third of the esophagus. One specimen bottle was sent to pathology. Verification of patient identification for the specimen was done. Estimated blood loss was minimal. A large hiatal hernia was present. No other significant abnormalities were identified in a careful examination of the stomach. No gross lesions were noted in the first portion of the duodenum. Impression: - Esophageal mucosal changes secondary to established long-segment Lechuga's disease. Biopsied. - Large hiatal hernia. - No gross lesions in the first portion of the duodenum. Recommendation: - Discharge patient to home. - Resume previous diet. - Continue present medications. - Await pathology results. Procedure Code(s): --- Professional --- 09352, Esophagogastroduodenoscopy, flexible, transoral; with biopsy, single or multiple CPT copyright 2021 [employer]. All rights reserved. The codes documented in this report are preliminary and upon death surveys coder review may be revised to meet current compliance requirements. Kanu Maya DO 08/29/2024 8:35:57 AM This report has been signed electronically. Number of Addenda: 0 Note Initiated On: 08/29/2024 8:19 AM
--- NOTE | 2024-08-29 08:36 | OP.CCLET_ITS ---
08/29/2024 Dejuan Selby [address] [place] [address] [place] [address] Re : Upper GI endoscopy procedure for Merline Natarajancristal Dear Dr. Selby This procedure was performed on August. My impressions and recommendations are as follows: Impressions : - Esophageal mucosal changes secondary to established long-segment Lechuga's disease. Biopsied. - Large hiatal hernia. - No gross lesions in the first portion of the duodenum. Recommendations : - Discharge patient to home. - Resume previous diet. - Continue present medications. - Await pathology results. My findings are described in the full procedure note, which is enclosed. If I can be of further assistance, please feel free to contact me at . Sincerely, Kanu Maya, 08/29/2024 8:35:57 AM This report has been signed electronically.
--- NOTE | 2024-08-29 08:42 | PCM.POST.ANE ---
Anesthesia: Postop Eval I Current Vital Signs Temperature: 98.9 F Pulse Rate: 83 Blood Pressure: 126/79 Respiratory Rate: 16 Pulse Ox: 99 Oxygen Delivery Method: Room Air Assessment Airway patent: Yes Spontaneous unlabored respirations: Yes Mental status: Awake and Calm nausea: No Vomiting: No Anesthesia Complication: Yes Anesthesia Complication Comment:: O2 desat d/t profuse coughing, dexamethasone adm iv Fluid Hydration Crystalloid volume administer (ml): 30 Total IV fluid infused: 30 Progress Note Anesthesia document: Postop Eval 1 completed: Yes
--- NOTE | 2024-08-29 12:40 | PCM.POSTANE2 ---
Anesthesia Postop Eval I Sum Postop Eval Completion status Anesthesia document: Postop Eval 1 completed: Yes Anesthesia Postop Eval I Summary Anesthesia Postop Eval I Summary: Anesthesia Postop Eval I: Assessment Summary Airway patent Yes 08/29/24 08:43 [email or web address] Spontaneous unlabored Yes 08/29/24 08:43 [email or web address] respirations Mental status Awake,Calm 08/29/24 08:43 [email or web address] nausea No 08/29/24 08:43 [email or web address] Vomiting No 08/29/24 08:43 [email or web address] Anesthesia Postop Eval I: Fluid Summary Crystalloid volume administer 30 08/29/24 08:43 [email or web address] (ml) Colloids volume administered ( ml) Blood Product volume administered (ml) Total IV fluid infused 30 08/29/24 08:43 [email or web address] Anesthesia Postop Eval I: Summary Notes Anesthesia Complication Yes 08/29/24 08:43 [email or web address] Anesthesia Complication O2 desat d/t 08/29/24 08:43 [email or web address] Comment: profuse coughing, dexamethasone adm iv Post-operative progress note Anesthesia: Postop Eval II Evaluation Mental status: Awake and Calm Pain Level: 0 nausea: No Vomiting: No Complications Anesthesia Complication: No
== END 2024-08-29 09:18 | disposition home or self-care (01) ==
LOC: EN 07:05 → AC 07:06
PROVIDERS: PCP Family Medicine; Referring Provider Family Medicine; Visit Provider Internal Medicine Gastroenterology
PROC: 0DJ08ZZ Inspection of Upper Intestinal Tract, Via Natural or Artificial Opening Endoscopic (ICD-10-PCS; CPT 43235; principal; 2024-08-29 07:55)
DX: K22.70 Barrett's esophagus without dysplasia (principal); N18.31 Chronic kidney disease, stage 3a; K44.9 Diaphragmatic hernia without obstruction or gangrene; K21.9 Gastro-esophageal reflux disease without esophagitis; D64.9 Anemia, unspecified; I12.9 Hypertensive chronic kidney disease with stage 1 through stage 4 chronic kidney disease, or unspecified chronic kidney disease; Z79.899 Other long term (current) drug therapy; Z79.890 Hormone replacement therapy; E03.9 Hypothyroidism, unspecified; E87.1 Hypo-osmolality and hyponatremia
CPT/HCPCS: 43239; 88305; A4216; J2405